=== PATIENT | female | born 1965 | race Caucasian/White ===

== ENCOUNTER 2019-10-25 14:34 | Emergency (ER) | payer BC, SELFPAY ==
[2019-10-25 14:57] VITALS: BP 140/80; PULSE 67; RESP 20; TEMP 36.8; O2SAT 98; BMI 34.4
--- NOTE | 2019-10-25 15:02 | XR_ITS ---
PROCEDURE: XR SHOULDER LT MIN 2V CLINICAL INDICATION: INJURY Pain COMPARISON: Shoulder L from 10/20/2018 FINDINGS: No fracture, dislocation, lytic change, or blastic change evident. No significant degenerative change there is minimal hypertrophic change of the AC joint not significantly changed. IMPRESSION: No acute finding. Minimal degenerative change of the AC joint Dictated by: Nabeel Lozano MD 10/25/2019 16:41 Electronically signed by Nabeel Lozano MD in [place] 10/25/2019 16:41
--- NOTE | 2019-10-25 15:50 | HMH.EDUTC ---
[facility] [place] Disposition Clinical Impression: Injury of shoulder, left Qualifiers: Encounter type: sequela Qualified Code(s): S49.92XS - Unspecified injury of left shoulder and upper arm, sequela Left shoulder pain Qualifiers: Chronicity: acute Qualified Code(s): M25.512 - Pain in left shoulder Disposition: Home, Self-Care Condition on Discharge: Good Instructions: Shoulder Tendinopathy, DI for Shoulder Pain Additional Instructions: Rest the extremity, Elevate the extremity as tolerated while you are resting. Follow up with Dr. Sloan (orthopedics). I put in a referral but you need to call her office and schedule an appointment. Follow up with your regular doctor. GO TO THE ER FOR ANY WORSENING SYMPTOMS Prescriptions: Methocarbamol [Robaxin 500mg Tab] 500 mg PO BIDP PRN #30 tab PRN Reason: Muscle Spasm Transmission Status: Received by [id number] Referrals: Princess Sampson [Primary Care Provider] - Tara Sloan MD [Physician] - Time of Disposition: 16:18 Medical Decision Making - Medical Records Medical records reviewed: No: I reviewed the patient's medical records. - Bartolo Inquiry Pt receiving controlled substance: No Vital Signs: 10/25/19 14:57 10/25/19 16:15 Temperature 98.3 F 98.3 F Temperature Source Oral Pulse Rate 67 Pulse Rate [Right Brachial] 67 Respiratory Rate 20 20 Blood Pressure 140/80 Blood Pressure [Right Arm] 140/80 Blood Pressure Mean [Right Arm] 100 Blood Pressure Source [Right Arm] Automatic Cuff Blood Pressure Position [Right Arm] Sitting 02 Sat by Pulse Oximetry 98 Oxygen Delivery Method Room Air Orders (Tests/Meds): ED MEDICATIONS Discontinued Medications Generic Name Dose Route Start Last Admin Trade Name Freq PRN Reason Stop Dose Admin Ketorolac Tromethamine 60 mg 10/25/19 15:53 10/25/19 16:00 Toradol 60mg/2ml Vial IM 10/25/19 15:54 60 mg ONCE ONE Administration Methylprednisolone Sodium Succinate 125 mg 10/25/19 15:53 10/25/19 16:00 Solu-Medrol 125mg/2ml Vial IM 10/25/19 15:54 125 mg ONCE ONE Administration [facility] [place] HPI - General Stated complaint: left shoulder rotator cup, no recent accident Time Seen by Provider: 10/25/19 15:00 Mode of Arrival: Ambulatory Source of Information: Patient Limitations: No Limitations Description of Symptoms (Recalled from Triage Doc. by RN): PATIENT STATES THAT SHE HAD A TORN ROTATOR CUFF REPAIR APPROX 4 YEARS AGO THAT SHE BELIEVES SHE REINJURED ON THURSDAY. C/O PAIN TO LEFT SHOULDER THAT RADIATES TO UPPER NECK AND BACK AND NUMBNESS/TINGLING IN HER FINGERS HEENT Symptoms (Recalled from RN notes): No Resp Symptoms (Recalled from RN notes): No Skin Symptoms (Recalled from RN notes): No MS Symptoms (Recalled from RN notes): Yes Functional Status (Recalled from RN notes): WNL - History of Present Illness Provider Complaint: She has a long history of left shoulder problems. She has a rotator cuff repair did 3 years ago. Since then, her shoulder did better up until a few months ago. She is having almost constant left shoulder pain that is worse with moving the arm. She denies any chest pain or shortness of breath. - Related Data Home Medications Medication Instructions Recorded Confirmed Buspirone HCl [Buspirone 15 mg 15 mg PO BID 10/25/19 10/25/19 Tablets] Escitalopram Oxalate [Lexapro] 20 mg PO DAILY 10/25/19 10/25/19 Trazodone HCl [Desyrel 50mg tablet] 50 mg PO HS 10/25/19 10/25/19 buPROPion HCL [Bupropion Xl] 300 mg PO DAILY 10/25/19 10/25/19 hydrOXYzine pamoate [Vistaril 25mg 25 mg PO DAILY 10/25/19 10/25/19 capsule] Previous Rx's Medication Instructions Recorded Methocarbamol [Robaxin 500mg Tab] 500 mg PO BIDP PRN #30 tab 10/25/19 Allergies Allergy/AdvReac Type Severity Reaction Status Date / Time codeine Allergy Verified 10/20/18 22:40 ibuprofen Allergy Verified 10/20/18 22:40 meloxicam [From Mobic] Allergy Verified 10/25/19 15:04
[2019-10-25 16:15] VITALS: BP 140/80; PULSE 67; RESP 20; TEMP 36.8; O2SAT 98
== END 2019-10-25 16:20 | disposition home or self-care (01) ==
PROVIDERS: Emergency Provider Nurse Practitioner Family; PCP Nurse Practitioner Family
DX: M25.512 Pain in left shoulder (principal); F17.210 Nicotine dependence, cigarettes, uncomplicated; Z88.0 Allergy status to penicillin; Z88.5 Allergy status to narcotic agent
CPT/HCPCS: 73030; 96372; 99202

== ENCOUNTER 2019-11-01 11:29 | Outpatient (RCR) | payer BC, SELFPAY | END 2019-11-01 12:00 | disposition home or self-care (01) | LOC: OT 11:29 | PROVIDERS: Visit Provider Orthopaedic Surgery | DX: G56.03 Carpal tunnel syndrome, bilateral upper limbs (principal) | CPT/HCPCS: 97763 ==

== ENCOUNTER → 2019-11-15 10:11 | Outpatient (CLI) | payer BC, SELFPAY ==
--- NOTE | 2019-11-15 10:11 | MR_ITS ---
PROCEDURE: MR SHOULDER LT WO CON CLINICAL INDICATION: left shoulder pain Rotator cuff surgery x5yrs. X3wks shoulder pain. No trauma. Pain when raising arm above head. Arm weakness. X-Ray 10-25-19 COMPARISON: XR SHOULDER LT MIN 2V from 10/25/2019 TECHNIQUE: Routine multiplanar multi echo sequences are performed without gadolinium enhancement. FINDINGS: There is extensive artifact prior shoulder surgery with multiple metallic fragments and susceptibility artifact. The supraspinatus tendon appears intact with only slight increase in T2 signal distally. The infraspinatus, subscapularis, and teres minor tendons also appear intact. The bicipital tendon is in place. No labral tear apparent. There is acromioclavicular arthropathy with mild subacromial stenosis. No shoulder joint effusion. No fracture or dislocation. IMPRESSION: No evidence of rotator cuff tear. There is mild subacromial stenosis with acromioclavicular arthropathy and minimal impingement upon the supraspinatus tendon with mild tendinopathy/tendinosis of the supraspinatus tendon Artifact from previous surgery Dictated by: Nabeel Lozano MD 11/16/2019 13:15 Electronically signed by Nabeel Lozano MD in [place] 11/16/2019 13:15
== END ==
PROVIDERS: PCP Nurse Practitioner Family; Visit Provider Orthopaedic Surgery
DX: M25.512 Pain in left shoulder (principal)
CPT/HCPCS: 73221

== ENCOUNTER → 2019-12-07 10:15 | Outpatient (CLI) | payer BC, SELFPAY ==
--- NOTE | 2019-12-07 10:36 | ECG_ITS ---
APPROVED REPORT Exam: Resting ECG HR:64 bpm ECG Measurements Heart Rate 64 AXES OR 146 P 74 QRSd 134 QRS 76 QT 448 T 70 QTc 462 <Conclusion> Normal sinus rhythm Right bundle branch block Abnormal ECG Electronically signed by : Gurdeep Pruett, 12/09/2019 12:32:12
--- NOTE | 2019-12-07 10:38 | XR_ITS ---
PROCEDURE: XR CHEST 2V CLINICAL HISTORY: H/O TOBACCO USE,SOB Preop for carpal tunnel surgery. COMPARISON: Chest from 10/20/2018 FINDINGS: No acute bony abnormalities. There is somewhat bony demineralization. The cardiomediastinal silhouette and pulmonary vascularity are within normal limits. The lungs are hyperinflated, compatible with COPD. There is no demonstrated consolidation, pulmonary vascular congestion or pleural effusion of the visualized lungs. IMPRESSION: 1. No acute findings. Possible COPD. Dictated by: Dinesh Acosta 12/07/2019 11:10 Electronically signed by Dinesh Acosta in [place] 12/07/2019 11:10
[2019-12-07 11:01] LABS: Basophils # 0.1 K/mm3 (0-0.2); Basophils % 1.1 % (0.1-2.0); Eosinophils # 0.2 K/mm3 (0.0-0.4); Eosinophils % 3.2 % (0.1-12.0); Hematocrit 38.9 % (37.0-47.0); Hemoglobin 12.2 g/dL (12.2-16.2); Lymphocytes % 33.1 % (10-50); Mean Corpuscular HGB Conc 31.4 g/dL (31.8-35.4); Mean Corpuscular Hemoglobin 26.7 pg (27.0-31.2); Mean Platelet Volume 7.1 fl (7.4-10.4); Monocytes # 0.4 K/mm3 (0.1-1.0); Monocytes % 6.3 % (1.7-9.3); Neutrophils # 3.3 K/mm3 (1.8-7.8); Neutrophils % 56.4 % (37.0-80.0); Platelet Count 395 K/mm3 (142-424); Red Blood Count 4.58 M/mm3 (4.20-5.40); White Blood Count 5.9 K/mm3 (4.8-10.8)
[2019-12-07 12:10] LABS: Chloride 104 mmol/L (98-107)
[2019-12-07 12:11] LABS: Potassium 5.9 mmoL/L (3.5-5.1); Sodium 142 mmol/L (136-145)
[2019-12-07 12:13] LABS: Alanine Aminotransferase 15 U/L (12-78); Alkaline Phosphatase 91 U/L (38-126); Anion Gap 14.9 mEq/L (5-15); Aspartate Amino Transferase 23 U/L (14-36); Bilirubin,Total 0.5 mg/dl (0.2-1.3); Blood Urea Nitrogen 17 mg/dl (7-17); Carbon Dioxide 29 mmol/L (22.0-30.0); Estimated Glomerular Filt Rate 74 ml/min (>60); GFR (African American) 90 ML/MIN (>60)
[2019-12-07 12:14] LABS: Albumin Level 4.2 g/dl (3.5-5.0); Albumin/Globulin Ratio 1.5 (1.1-1.8); Calcium 9.8 mg/dl (8.4-10.2); Globulin 2.8 g/dL (1.3-3.2); Glucose 86 mg/dl (74-100)
[2019-12-07 12:21] LABS: Coronavirus 19 IgG Antibody Negative (Negative)
[2019-12-07 12:22] LABS: Coronavirus 19 IgM Antibody Negative (Negative)
[2019-12-07 13:54] LABS: Hemoglobin A1C 5.4 % (4.0-6.0)
== END ==
PROVIDERS: Visit Provider Orthopaedic Surgery
DX: Z01.818 Encounter for other preprocedural examination (principal); G56.01 Carpal tunnel syndrome, right upper limb
CPT/HCPCS: 36415; 71046; 80053; 83036; 85025; 86328; 93005

== ENCOUNTER 2019-12-08 07:19 | Day surgery (SDC) | payer BC, SELFPAY ==
[2019-12-06 13:02] VITALS: BMI 33.6
--- NOTE | 2019-12-08 07:32 | XR_ITS ---
PROCEDURE: XR WRIST LT MIN 3V CLINICAL INDICATION: surgery Pain, carpal tunnel syndrome COMPARISON: No exams were available for comparison FINDINGS: No fracture or dislocation. No lytic or blastic change. There is normal mineralization. The joint spaces are well-preserved. No significant degenerative/arthritic changes. No erosive changes evident. Other findings:None. IMPRESSION: No acute findings. Dictated by: Nabeel Lozano MD 12/08/2019 07:57 Electronically signed by Nabeel Lozano MD in [place] 12/08/2019 07:57
--- NOTE | 2019-12-08 07:32 | XR_ITS ---
PROCEDURE: XR WRIST RT MIN 3V CLINICAL INDICATION: surgery Pain, wrist pain COMPARISON: No exams were available for comparison FINDINGS: No fracture or dislocation. No lytic or blastic change. There is normal mineralization. The joint spaces are well-preserved. No significant degenerative/arthritic changes. No erosive changes evident. Other findings:There is some minimal cortical lucency along the proximal aspect of the lunate nonspecific and could even be due to artifact. IMPRESSION: Questionable cortical lucencies at the proximal lunate service possibly due to subarticular cystic change otherwise negative Dictated by: Nabeel Lozano MD 12/08/2019 07:56 Electronically signed by Nabeel Lozano MD in [place] 12/08/2019 07:56
[2019-12-08 07:52] VITALS: BP 140/74; PULSE 75; RESP 20; TEMP 36.4; O2SAT 97
[2019-12-08 08:58] LABS: Chloride 105 mmol/L (98-107); Potassium 4.1 mmoL/L (3.5-5.1); Sodium 140 mmol/L (136-145)
[2019-12-08 09:00] LABS: Alanine Aminotransferase 13 U/L (12-78); Aspartate Amino Transferase 24 U/L (14-36); Blood Urea Nitrogen 21 mg/dl (7-17); Creatinine Clearance Estimated 140 mL/min (50-200); Estimated Glomerular Filt Rate 87 ml/min (>60); GFR (African American) 105 ML/MIN (>60)
[2019-12-08 09:01] LABS: Albumin/Globulin Ratio 1.4 (1.1-1.8); Alkaline Phosphatase 95 U/L (38-126); Anion Gap 12.1 mEq/L (5-15); Bilirubin,Total 0.6 mg/dl (0.2-1.3); Calcium 9.3 mg/dl (8.4-10.2); Carbon Dioxide 27 mmol/L (22.0-30.0); Globulin 2.9 g/dL (1.3-3.2); Glucose 89 mg/dl (74-100); Total Protein,Serum 6.9 g/dl (6.3-8.2)
[2019-12-08 10:20] VITALS: BP 154/75; PULSE 84; RESP 18; TEMP 36.5; O2SAT 98
[2019-12-08 10:35] VITALS: BP 147/78; PULSE 83; RESP 18; O2SAT 99
[2019-12-08 10:50] VITALS: BP 160/73; PULSE 61; RESP 18; O2SAT 98
--- NOTE | 2019-12-08 13:18 | HMH.ANESCL ---
[facility] [place] Anesthesia Checklist - Patient Identification Patient Identification: Arm Band, Verbal (Name & ) - Structural Data Admitted From: Home Planned Operative Procedure/s: Right CTR Consent for Planned Operative Procedure(s) Verified: Yes Verified Documents: Surgical Consent, History and Physical - NPO Status Verified Time NPO: 00:00 - Additional verifications Anesthesia Reactions: No Hx Blood Transfusions: No Blood Transfusion Reaction: No - Airway Assessment C-Spine Mobility Assessed: Yes TMJ Mobility Assessed: Yes Dentition: Good Dentition - Neurological Assessment Level of Consciousness: Awake, Alert, Appropriate, Follows Commands Hx Seizures: No Numbness or tingling in extremities: No - Anesthesia Plan Anesthesia Risk discussed: Yes Anesthesia Plan: Verified ASA Class: II Anesthesia Type: MAC w/Block [facility] [place] History Medical History: Reports:: Anxiety, Depression Denies:: Cancer, Diabetes Mellitus Type 1, Diabetes Mellitus Type 2, MRSA, Seizures *Have you ever received a pneumonia vaccine?: Yes *Have you received a flu vaccine this season?: Yes Other Medical History: Denies: Blood Transfusion Reaction Comment:: obesity Anesthesia experience/problems:: none Laterality Cases: Left: Arthroscopy Shoulder Other Surgeries: Yes: Bariatric Surgery Amputation: No Fractures: No - *Social History Last grade of school completed: Advanced degree Smoking Status: Current every day smoker Tobacco Type: cigarettes # Packs/Day (cigarettes): 1 Alcohol Intake: current Alcohol Intake Frequency:: holidays/special occasions only Substance Use Type: denies use *Occupational Status:: employed Housing: house *Travel in the last 8 weeks: None - Psychiatric History Pschychiatric History:: Reports:: Anxiety, Depression Family Hx:: Cancer, Diabetes
--- NOTE | 2019-12-08 18:13 | HMH.OPNOTE ---
Date of procedure: 12/08/19 Pre-op Diagnosis:: Carpal tunnel syndrome, right Post-op Diagnosis:: Same Procedure performed:: Open carpal tunnel release, right wrist Surgeon:: Chente Cuba MD SPRING CLIPPER:: Mateo Mckeon Anesthesia: regional (Supraclavicular nerve block), local Estimated blood loss (mL): 2 Clinical Note:: Patient is 54-year-old female with bilateral carpal tunnel syndrome with long-standing symptoms. EMG/NCV studies confirmed carpal tunnel syndrome on both sides with the right side being worse than the left. Patient is having significant and disabling symptoms on the right side and has failed to respond adequately to conservative management. Therefore the carpal tunnel release surgery is necessary to relieve symptoms, preserve the remaining fibers of the median nerve, improve function and decrease the pain, paresthesias and weakness and to prevent permanent nerve damage. Please refer to my office note for full details. Operative findings:: The intraoperative findings showed the median nerve to be very tightly compressed and hyperemic. The flexor retinaculum was noted to be thick and tight. There was mild synovitis in the carpal tunnel. There was no evidence of any space-occupying lesions within the carpal tunnel. Operative note:: On the day of the surgery the patient was met in the preoperative area. Patient was positively identified and the operative site was marked and initialed by me. A physical examination was performed and the chart was updated. I again discussed the procedure, risks and benefits and alternatives with the patient. The complications discussed include but are not limited to- bleeding, injury to nerves, blood vessels and tendons, infection, wound dehiscence, incomplete relief/continued pain, persistent numbness, palmar hypersensitivity, pillar pain, DVT/PE, complex regional pain syndrome(CRPS), worsening of nerve damage, failure of the condition to improve, incomplete return of function, bowstringing of tendons, weakness of polymerization kettle operator strength, recurrence, failure of the surgery to accomplish the desired goals, decreased use of the hand, loss of use of the arm, loss of the hand or arm, loss of life. Likely need for further surgery in the future has been discussed. I've indicated to the patient where the proposed incision would be made and also discussed the possibility of extending the incision if needed to accomplish an effective release. We have discussed how the goal of surgery is to protect the fibers which have remained healthy and hopefully reverse the symptoms of the fibers which are compromised but still recoverable. We have explained that, fibers that are permanently damaged will not recover. Patient asked appropriate questions and all have been answered by me. Patient wished to proceed with the surgery. Patient understood the risks, agreed to proceed with surgery, and no guarantees or assurances were given or implied. The patient was brought to the operating room and placed supine on the operating table. The right upper extremity was placed over a side table. All the bony prominences were well-padded. A supraclavicular nerve block was administered by the chief deputy sheriff. The right upper extremity was prepped and draped in the usual sterile fashion. A preprocedure timeout was performed as per hospital policy. The skin incision was marked using the Amaral's landmarks, just ulnar to the thenar crease. The limb was exsanguinated with the Esmarch bandage and tourniquet was inflated to 250 mmHg. Please see nursing records for the total tourniquet time. Amaral's landmarks were utilized and a skin incision was made parallel and just ulnar to the thenar crease with a 15 blade. At this point, we have noticed that the nerve blocks are not working as well as expected. Therefore therefore I have injected 10 cc of 0.5% Marcaine and 5 cc of 1% lidocaine into the surrounding tissue for local anesthesia. Blunt tissue dissection was carried
== END 2019-12-08 10:50 | disposition home or self-care (01) ==
LOC: OR 07:25
PROVIDERS: Nurse Anesthetist, Certified Registered; PCP Nurse Practitioner Family; Visit Provider Orthopaedic Surgery
PROC: (CPT 64721; principal; 2019-12-08 08:45)
DX: G56.01 Carpal tunnel syndrome, right upper limb (principal)
CPT/HCPCS: 64721; 73110; 80053; 96374; J0670; J2704

== ENCOUNTER → 2020-02-03 08:43 | Outpatient (CLI) | payer BC, SELFPAY ==
--- NOTE | 2020-02-03 08:49 | XR_ITS ---
PROCEDURE: XR HAND RT MIN 3V CLINICAL INDICATION: rt hand pain COMPARISON: No exams were available for comparison FINDINGS: No fracture or dislocation. No lytic or blastic change. There is normal mineralization. The joint spaces are well-preserved. No significant degenerative/arthritic changes. No erosive changes evident. Other findings:None. IMPRESSION: No acute findings. Dictated by: Nabeel Lozano MD 02/03/2020 16:28 Nabeel Lozano MD in [place] 02/03/2020 16:28
== END ==
PROVIDERS: PCP Nurse Practitioner Family; Visit Provider Orthopaedic Surgery
DX: M79.641 Pain in right hand (principal)
CPT/HCPCS: 73130

== ENCOUNTER → 2020-02-08 10:53 | Outpatient (CLI) | payer BC, SELFPAY ==
[2020-02-08 10:56] LABS: MANUAL DIFFERENTIAL MANUAL DIFFERENTIAL (MANUAL DIFF)
[2020-02-08 11:57] LABS: Basophils # 0.1 K/mm3 (0-0.2); Eosinophils # 0.2 K/mm3 (0.0-0.4); Eosinophils % 2.9 % (0.1-12.0); Hematocrit 38.3 % (37.0-47.0); Hemoglobin 11.7 g/dL (12.2-16.2); Lymphocytes # 2.2 K/mm3 (0.7-4.5); Lymphocytes % 41.1 % (10-50); Mean Corpuscular HGB Conc 30.6 g/dL (31.8-35.4); Mean Corpuscular Hemoglobin 26.3 pg (27.0-31.2); Mean Corpuscular Volume 85.9 fl (81-99); Monocytes # 0.3 K/mm3 (0.1-1.0); Monocytes % 5.6 % (1.7-9.3); Neutrophils # 2.7 K/mm3 (1.8-7.8); Neutrophils % 49.4 % (37.0-80.0); Platelet Count 363 K/mm3 (142-424); Red Blood Count 4.46 M/mm3 (4.20-5.40); Red Cell Distribution Width 16.7 % (11.5-17.5); White Blood Count 5.4 K/mm3 (4.8-10.8)
[2020-02-08 12:31] LABS: Chloride 106 mmol/L (98-107); Sodium 140 mmol/L (136-145)
[2020-02-08 12:32] LABS: Potassium 5.7 mmoL/L (3.5-5.1)
[2020-02-08 12:34] LABS: Alanine Aminotransferase 11 U/L (12-78); Albumin Level 4.2 g/dl (3.5-5.0); Albumin/Globulin Ratio 1.6 (1.1-1.8); Alkaline Phosphatase 98 U/L (38-126); Anion Gap 10.7 mEq/L (5-15); Aspartate Amino Transferase 25 U/L (14-36); Bilirubin,Total 0.7 mg/dl (0.2-1.3); Blood Urea Nitrogen 14 mg/dl (7-17); Carbon Dioxide 29 mmol/L (22.0-30.0); Estimated Glomerular Filt Rate 74 ml/min (>60); GFR (African American) 90 ML/MIN (>60); Globulin 2.7 g/dL (1.3-3.2); Total Protein,Serum 6.9 g/dl (6.3-8.2)
[2020-02-08 12:35] LABS: Calcium 9.8 mg/dl (8.4-10.2); Glucose 96 mg/dl (74-100)
[2020-02-08 13:23] LABS: Coronavirus 19 IgG Antibody Negative (Negative); Coronavirus 19 IgM Antibody Negative (Negative)
[2020-02-08 15:11] LABS: Eosinophils % 3 % (0-3); Hypochromasia 1+; Lymphocytes % 47 % (10-50); Monocytes % 4 % (2-9); Neutrophils % 46 % (42-76); Total Cells Counted 100
[2020-02-08 15:12] LABS: Platelet Estimate Normal; RBC Morphology Normal
== END ==
PROVIDERS: Visit Provider Orthopaedic Surgery
DX: Z01.89 Encounter for other specified special examinations (principal); G56.02 Carpal tunnel syndrome, left upper limb
CPT/HCPCS: 36415; 80053; 85007; 85014; 85018; 85048; 85049; 86328

== ENCOUNTER 2020-02-09 08:31 | Day surgery (SDC) | payer BC, SELFPAY ==
[2020-02-07 12:31] VITALS: BMI 33.3
[2020-02-09 08:47] VITALS: BP 118/66; PULSE 61; RESP 17; TEMP 36.3; O2SAT 100
[2020-02-09 09:07] LABS: Chloride 107 mmol/L (98-107); Potassium 4.4 mmoL/L (3.5-5.1); Sodium 141 mmol/L (136-145)
[2020-02-09 09:10] LABS: Alanine Aminotransferase 12 U/L (12-78); Albumin Level 4.1 g/dl (3.5-5.0); Albumin/Globulin Ratio 1.4 (1.1-1.8); Alkaline Phosphatase 93 U/L (38-126); Anion Gap 10.4 mEq/L (5-15); Aspartate Amino Transferase 24 U/L (14-36); Bilirubin,Total 0.7 mg/dl (0.2-1.3); Blood Urea Nitrogen 16 mg/dl (7-17); Calcium 9.7 mg/dl (8.4-10.2); Carbon Dioxide 28 mmol/L (22.0-30.0); Creatinine Clearance Estimated 139 mL/min (50-200); Estimated Glomerular Filt Rate 87 ml/min (>60); GFR (African American) 105 ML/MIN (>60); Glucose 90 mg/dl (74-100); Total Protein,Serum 7.1 g/dl (6.3-8.2)
[2020-02-09 11:43] VITALS: BP 164/82; PULSE 83; RESP 16; TEMP 36.4; O2SAT 94
[2020-02-09 11:58] VITALS: BP 152/88; PULSE 69; RESP 18; O2SAT 96
[2020-02-09 12:13] VITALS: BP 142/88; PULSE 69; RESP 18; O2SAT 96
[2020-02-09 12:28] VITALS: BP 133/80; PULSE 68; RESP 18; O2SAT 97
[2020-02-09 12:55] VITALS: BP 139/76; PULSE 68; RESP 18; O2SAT 97
--- NOTE | 2020-02-09 14:11 | HMH.OPNOTE ---
Date of procedure: 02/09/20 Pre-op Diagnosis:: Carpal tunnel syndrome, left Post-op Diagnosis:: Same Procedure performed:: Open carpal tunnel release, left Surgeon:: Chente Cuba MD BUSINESS SERVICES SALES REPRESENTATIVE:: Mateo Mckeon Anesthesia: regional (Supraclavicular nerve block) Estimated blood loss (mL): 2 Clinical Note:: Patient is 54-year-old female with left carpal tunnel syndrome with long-standing symptoms. Her EMG/NCV studies confirmed carpal tunnel syndrome on both sides and she previously underwent successful carpal tunnel release on the right side. Patient is having significant and disabling symptoms on the left side and has failed to respond adequately to conservative management. Therefore the carpal tunnel release surgery is necessary to relieve symptoms, preserve the remaining fibers of the median nerve, improve function and decrease the pain, paresthesias and weakness and to prevent permanent nerve damage. Please refer to my office note for full details. Operative findings:: The intraoperative findings showed the median nerve to be very tightly compressed and hyperemic. The flexor retinaculum was noted to be thick and tight. There was mild synovitis in the carpal tunnel. There was no evidence of any space-occupying lesions within the carpal tunnel. Operative note:: On the day of the surgery the patient was met in the preoperative area. Patient was positively identified and the operative site was marked and initialed by me. A physical examination was performed and the chart was updated. I again discussed the procedure, risks and benefits and alternatives with the patient. The complications discussed include but are not limited to- bleeding, injury to nerves, blood vessels and tendons, infection, wound dehiscence, incomplete relief/continued pain, persistent numbness, palmar hypersensitivity, pillar pain, DVT/PE, complex regional pain syndrome(CRPS), worsening of nerve damage, failure of the condition to improve, incomplete return of function, bowstringing of tendons, weakness of information services tech strength, recurrence, failure of the surgery to accomplish the desired goals, decreased use of the hand, loss of use of the arm, loss of the hand or arm, loss of life. Likely need for further surgery in the future has been discussed. I've indicated to the patient where the proposed incision would be made and also discussed the possibility of extending the incision if needed to accomplish an effective release. We have discussed how the goal of surgery is to protect the fibers which have remained healthy and hopefully reverse the symptoms of the fibers which are compromised but still recoverable. We have explained that, fibers that are permanently damaged will not recover. Patient asked appropriate questions and all have been answered by me. Patient wished to proceed with the surgery. Patient understood the risks, agreed to proceed with surgery, and no guarantees or assurances were given or implied. The patient was brought to the operating room and placed supine on the operating table. The left upper extremity was placed over a side table. All the bony prominences were well-padded. The patient had supraclavicular nerve block administered by the datapower consultant. The left upper extremity was prepped and draped in the usual sterile fashion. A preprocedure timeout was performed as per hospital policy. The skin incision was marked using the Amaral's landmarks, just ulnar to the thenar crease. The limb was exsanguinated with the Esmarch bandage and tourniquet was inflated to 250 mmHg. Please see nursing records for the total tourniquet time. Amaral's landmarks were utilized and a skin incision was made parallel and just ulnar to the thenar crease with a 15 blade. Blunt tissue dissection was carried through the subcutaneous tissue down to the palmar fascia. The palmar fascia was incised with the knife to reveal the transverse carpal ligament. The transverse carpal ligament was adequately exposed and
== END 2020-02-09 12:55 | disposition home or self-care (01) ==
LOC: OR 08:33
PROVIDERS: Nurse Anesthetist, Certified Registered; PCP Nurse Practitioner Family; Visit Provider Orthopaedic Surgery
PROC: (CPT 64721; principal; 2020-02-09 10:00)
DX: G56.02 Carpal tunnel syndrome, left upper limb (principal)
CPT/HCPCS: 64721; 80053; 96374; J0670

== ENCOUNTER 2020-03-13 09:13 | Emergency (ER) | payer BC, SELFPAY ==
[2020-03-13 09:25] VITALS: BP 138/75; PULSE 65; RESP 20; TEMP 36.7; O2SAT 99; BMI 33.0
[2020-03-13 09:28] VITALS: BMI 33.0
--- NOTE | 2020-03-13 09:28 | XR_ITS ---
PROCEDURE: XR WRIST LT MIN 3V CLINICAL INDICATION: FALL Pain COMPARISON: CR XR WRIST RT MIN 3V from 12/08/2019 CR XR WRIST LT MIN 3V from 12/08/2019 FINDINGS: No fracture or dislocation. No lytic or blastic change. There is normal mineralization. The joint spaces are well-preserved. No significant degenerative/arthritic changes. No erosive changes evident. Other findings:None. IMPRESSION: No acute findings. Dictated by: Nabeel Lozano MD 03/13/2020 10:12 Nabeel Lozano MD in [place] 03/13/2020 10:12
--- NOTE | 2020-03-13 09:28 | XR_ITS ---
PROCEDURE: XR HAND LT MIN 3V CLINICAL INDICATION: FALL Fall with injury and pain COMPARISON: CR XR HAND RT MIN 3V from 02/03/2020 FINDINGS: No fracture or dislocation. No lytic or blastic change. There is normal mineralization. The joint spaces are well-preserved. No significant degenerative/arthritic changes. No erosive changes evident. Other findings:None. IMPRESSION: No acute findings. Dictated by: Nabeel Lozano MD 03/13/2020 10:12 Nabeel Lozano MD in [place] 03/13/2020 10:12
--- NOTE | 2020-03-13 09:28 | XR_ITS ---
PROCEDURE: XR KNEE LT 3V CLINICAL INDICATION: FALL Posttraumatic pain COMPARISON: No exams were available for comparison FINDINGS: No fracture or dislocation. No lytic or blastic change. There is normal mineralization. The joint spaces are well-preserved. No significant degenerative/arthritic changes. No erosive changes evident. Other findings:None. IMPRESSION: No acute findings. Dictated by: Nabeel Lozano MD 03/13/2020 10:14 Nabeel Lozano MD in [place] 03/13/2020 10:14
--- NOTE | 2020-03-13 09:37 | HMH.EDUTC ---
[facility] [place] Disposition Clinical Impression: Bilateral wrist pain Fall Qualifiers: Encounter type: initial encounter Qualified Code(s): W19.XXXA - Unspecified fall, initial encounter Left knee pain Qualifiers: Chronicity: acute Qualified Code(s): M25.562 - Pain in left knee Disposition: Home, Self-Care Condition on Discharge: Good Instructions: DI for Knee Pain, DI for Wrist Pain Additional Instructions: Rest the extremity, Elevate the extremity as tolerated while you are resting. Follow up with Dr. Cuba. I put in a referral but you need to call his office and schedule an appointment. Follow up with your regular doctor. GO TO THE ER FOR ANY WORSENING SYMPTOMS Referrals: Princess Sampson [Primary Care Provider] - Chente Cuba MD [Staff Physician] - Time of Disposition: 10:44 Medical Decision Making - Medical Records Medical records reviewed: No: I reviewed the patient's medical records. - Bartolo Inquiry Pt receiving controlled substance: No Vital Signs: 03/13/20 09:25 03/13/20 10:50 Temperature 98.1 F 98.1 F Temperature Source Oral Pulse Rate 65 Pulse Rate [Right Brachial] 65 Respiratory Rate 20 20 Blood Pressure 138/75 Blood Pressure [Left Arm] 138/75 Blood Pressure Mean [Left Arm] 96 Blood Pressure Source [Left Arm] Automatic Cuff Blood Pressure Position [Left Arm] Sitting 02 Sat by Pulse Oximetry 99 Oxygen Delivery Method Room Air [facility] [place] HPI - General Stated complaint: AO [id number] left knee injury at home Time Seen by Provider: 03/13/20 09:37 - History of Present Illness Provider Complaint: She states that she fell on (1 week ago) and came down on her knees. She then pushed herself back up with her wrist and ended up having wrist pain also. She had bilateral carpal tunnel surgery about 1 months ago. She states that since the fall, her left knee and bilateral wrist have continued to hurt. - Related Data Home Medications Medication Instructions Recorded Confirmed Buspirone HCl [Buspirone 15 mg 15 mg PO BID 10/25/19 02/22/20 Tablets] Escitalopram Oxalate [Lexapro] 20 mg PO DAILY 10/25/19 02/22/20 Trazodone HCl [Desyrel 50mg tablet] 50 mg PO HS 10/25/19 02/22/20 buPROPion HCL [Bupropion Xl] 300 mg PO DAILY 10/25/19 02/22/20 hydrOXYzine pamoate [Vistaril 25mg 25 mg PO DAILY 10/25/19 02/22/20 capsule] Magnesium Oxide [Magnesium] 250 mg PO DAILY 12/06/19 02/22/20 Allergies Allergy/AdvReac Type Severity Reaction Status Date / Time penicillin G Allergy Severe Anaphylaxis Verified 02/22/20 15:43 nitrofurantoin Allergy Unknown Unknown Verified 02/22/20 15:43 [From Macrobid] allergy reaction codeine Allergy Verified 02/22/20 15:43 ibuprofen Allergy Verified 02/22/20 15:43 meloxicam [From Mobic] Allergy Verified 02/22/20 15:43 [facility] History - Hepatitis A Screen Attestation statement:: This patient has been screened for Hepatitis A risk factors. I have reviewed the patient's past medical history: Yes Medical History: Reports:: Anxiety, Depression Denies:: Cancer, Diabetes Mellitus Type 1, Diabetes Mellitus Type 2, Internal Pacemaker, MRSA, Seizures Other Medical History: Denies: Blood Transfusion Reaction Comment: obesity Laterality Cases: Left: Arthroscopy Shoulder, Bilateral: Carpal Tunnel Release Other Surgeries: Yes: Bariatric Surgery. No: Pacemaker Amputation: No Fractures: No - Social History Smoking Status: Current every day smoker Tobacco Type: cigarettes # Packs/Day (cigarettes): 1 Alcohol Intake: never Alcohol Intake Frequency:: holidays/special occasions only Substance Use Type: denies use Occupational Status: employed Housing: house - Psychiatric History Pschychiatric History:: Reports:: Anxiety, Depression Family Hx:: Cancer, Diabetes ROS Obtained: Yes All systems reviewed & no additional complaints - Constitutional Constitutional: Reports system reviewed and no additional complaints, except as docu
[2020-03-13 10:50] VITALS: BP 138/75; PULSE 65; RESP 20; TEMP 36.7; O2SAT 99
== END 2020-03-13 10:55 | disposition home or self-care (01) ==
LOC: UTC 09:17
PROVIDERS: Emergency Provider Nurse Practitioner Family; PCP Nurse Practitioner Family
DX: M25.562 Pain in left knee (principal); M25.532 Pain in left wrist; M25.531 Pain in right wrist; W19.XXXA Unspecified fall, initial encounter; Z87.39 Personal history of other diseases of the musculoskeletal system and connective tissue; Z88.0 Allergy status to penicillin; Z88.6 Allergy status to analgesic agent; Z79.899 Other long term (current) drug therapy; Z72.0 Tobacco use; F41.9 Anxiety disorder, unspecified; F32.9 Major depressive disorder, single episode, unspecified
CPT/HCPCS: 29505; 73110; 73130; 73562; 99202

== ENCOUNTER → 2020-04-25 17:08 | Outpatient (CLI) | payer BC, SELFPAY ==
--- NOTE | 2020-04-25 17:08 | MR_ITS ---
PROCEDURE: MR KNEE LT WO CON CLINICAL INDICATION: LEFT KNEE PAIN; meniscal tear FELL IN OCT AND KNEE PAIN. QUESTION MENISCAL TEAR. PRIOR X-RAY 03-13-20 COMPARISON: CR XR KNEE LT 3V from 03/13/2020 TECHNIQUE: Routine multiplanar multi echo sequences are performed without gadolinium enhancement. FINDINGS: The cruciate ligaments, collateral ligaments, patellar tendon, and quadriceps tendon have an unremarkable appearance. There is a small linear area of increased T2 signal involving the lateral free edge the body and posterior horn of the medial meniscus suggesting a nondisplaced horizontal tear. There is some motion artifact at this area which could also contribute to this finding. There is some thinning of the patellar cartilage consistent with chondromalacia patella with a small amount of fluid in the patellofemoral region. There is some slight increased T2 signal involving the patella superiorly no bone bruise or fracture evident. IMPRESSION: 1. Suspected nondisplaced horizontal tear involves the mid and posterior horn of the lateral meniscus 2. 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
== END ==
PROVIDERS: PCP Nurse Practitioner Family; Visit Provider Orthopaedic Surgery
DX: M25.562 Pain in left knee (principal)
CPT/HCPCS: 73721

== ENCOUNTER 2020-04-29 18:55 | Emergency (ER) | payer BC, SELFPAY ==
[2020-04-29 18:56] VITALS: BP 154/92; PULSE 77; RESP 16; TEMP 36.7; O2SAT 97; BMI 31.0
--- NOTE | 2020-04-29 19:28 | CT_ITS ---
PROCEDURE: CT ABDOMEN PELVIS WO CON CLINICAL INDICATION: flank pain Left-sided flank pain COMPARISON: No exams were available for comparison TECHNIQUE: Axial images obtained with sagittal and coronal reformats. All CT scans at the facility use one or more dose reduction, viz: automated exposure control, ma/kV adjustment per patient size (including targeted exams where dose is matched to indication, i.e. head), or iterative reconstruction technique. FINDINGS: LOWER THORAX: Small hiatal hernia. ABDOMEN & PELVIS: Prior gastric sleeve surgery. Prior cholecystectomy. The liver, spleen, adrenal glands, pancreas, and kidneys have an unremarkable unenhanced appearance. Mild amount of retained colonic feces. No evidence of appendicitis or diverticulitis. No intestinal obstruction or free air. The there is mild calcification in the left adnexal region which may be rib related to calcification of the ovary. No pelvic mass or abnormal fluid collection is apparent. There is partially calcified nodule within the subcutaneous fat of the right lower abdomen measuring 2.6 x 1.7 cm. No acute bony anomalies. IMPRESSION: 1. No acute finding. 2. Mild amount of retained colonic feces and other nonacute findings as described above. Dictated by: Nabeel Lozano MD 04/30/2020 07:40 Nabeel Lozano MD in [place] 04/30/2020 07:40
--- NOTE | 2020-04-29 19:39 | PC.NURSE ---
pt to RAD
[2020-04-29 19:47] LABS: Microscopic, Urine URINE MICROSCOPIC (MICROSCOPIC)
[2020-04-29 19:52] LABS: Appearance,Urine CLEAR (Clear); Bilirubin,Urine Negative (Negative); Blood, Urine TRACE-I (Negative); Color,Urine YELLOW (Yellow); Glucose,Urine (UA) Negative (Negative); Ketones,Urine Negative (Negative); Leukocyte Esterase,Urine Negative (Negative); Nitrate,Urine Negative (Negative); Protein,Urine Negative (Negative); Specific Gravity, Urine >= 1.030 (1.005-1.030); Urobilinogen,Urine 0.2 EU/dl (0.2)
--- NOTE | 2020-04-29 19:53 | PC.NURSE ---
pt back from RAD
[2020-04-29 19:54] LABS: Chloride 108 mmol/L (98-107); Potassium 3.9 mmoL/L (3.5-5.1); Sodium 139 mmol/L (136-145)
--- NOTE | 2020-04-29 19:54 | PC.NURSE ---
called lab for lab results on pt. lab stated they just started running.
[2020-04-29 19:55] LABS: Calcium Oxalate Crystals,Urine 2+ /lpf; RBC,Urine Occasional #/hpf (0-3)
[2020-04-29 19:56] LABS: Basophils # 0.1 K/mm3 (0-0.2); Blood Urea Nitrogen 13 mg/dl (7-17); Eosinophils # 0.2 K/mm3 (0.0-0.4); Eosinophils % 3.3 % (0.1-12.0); Hematocrit 37.8 % (37.0-47.0); Hemoglobin 11.9 g/dL (12.2-16.2); Lymphocytes # 3.4 K/mm3 (0.7-4.5); Lymphocytes % 49.2 % (10-50); Mean Corpuscular HGB Conc 31.6 g/dL (31.8-35.4); Mean Corpuscular Hemoglobin 25.8 pg (27.0-31.2); Mean Corpuscular Volume 81.7 fl (81-99); Mean Platelet Volume 7.1 fl (7.4-10.4); Monocytes # 0.5 K/mm3 (0.1-1.0); Monocytes % 6.9 % (1.7-9.3); Neutrophils # 2.7 K/mm3 (1.8-7.8); Neutrophils % 39.5 % (37.0-80.0); Platelet Count 388 K/mm3 (142-424); Red Blood Count 4.62 M/mm3 (4.20-5.40); Red Cell Distribution Width 17.4 % (11.5-17.5); White Blood Count 6.8 K/mm3 (4.8-10.8)
[2020-04-29 19:57] LABS: Alanine Aminotransferase 13 U/L (12-78); Albumin Level 4.4 g/dl (3.5-5.0); Albumin/Globulin Ratio 1.3 (1.1-1.8); Alkaline Phosphatase 99 U/L (38-126); Anion Gap 10.9 mEq/L (5-15); Aspartate Amino Transferase 27 U/L (14-36); Bilirubin,Total 0.4 mg/dl (0.2-1.3); Calcium 9.5 mg/dl (8.4-10.2); Carbon Dioxide 24 mmol/L (22.0-30.0); Creatinine Clearance Estimated 159 mL/min (50-200); Estimated Glomerular Filt Rate 104 ml/min (>60); GFR (African American) 126 ML/MIN (>60); Globulin 3.4 g/dL (1.3-3.2); Glucose 85 mg/dl (74-100); Total Protein,Serum 7.8 g/dl (6.3-8.2)
[2020-04-29 20:02] LABS: C-Reactive Protein 1.3 mg/L (0-4)
[2020-04-29 20:26] LABS: Erythrocyte Sedimentation Rate 43 mm/hr (0-30)
--- NOTE | 2020-04-29 20:48 | HMH.EDGENADL ---
ED Disposition Clinical Impression: Lumbar back pain Disposition: Home, Self-Care Condition on Discharge: Good Instructions: DI for Acute Pain -- Adult Additional Instructions: monitor for rash and call pcp in am Referrals: Princess Sampson [Primary Care Provider] - - Critical Care Critical Care Time: No Attestation: On 04/29/20, the high probability of a clinically significant, sudden or life threatening deterioration of the following system(s) required my full and direct attention, intervention and personal management. The time I documented below is in addition to time spent performing reported procedures but includes the following listed in this critical care notation. Medical Decision Making - Medical Records Medical records reviewed: Yes: I reviewed the patient's medical records. - Bartolo Inquiry Pt receiving controlled substance: No Vital Signs: 04/29/20 18:56 Temperature 98.1 F Temperature Source Oral Pulse Rate [Left Radial] 77 Respiratory Rate 16 Blood Pressure [Right Arm] 154/92 H Blood Pressure Mean [Right Arm] 112 Blood Pressure Source [Right Arm] Automatic Cuff Blood Pressure Position [Right Arm] Sitting 02 Sat by Pulse Oximetry 97 Oxygen Delivery Method Room Air - Lab Data Lab results reviewed: Yes: I reviewed the patient's lab results. Lab Results 04/29/20 19:13: Urine Color Yellow, Urine Appearance Clear, Urine pH 6.0, Ur Specific [place] >= 1.030, Urine Protein Negative, Urine Glucose (UA) Negative, Urine Ketones Negative, Urine Blood Trace-i, Urine Nitrate Negative, Urine Bilirubin Negative, Urine Urobilinogen 0.2, Ur Leukocyte Esterase Negative, Urine RBC Occasional, Calcium Oxalate Crystal 2+ 04/29/20 19:25: WBC 6.8, RBC 4.62, Hgb 11.9 L, Hct 37.8, MCV 81.7, MCH 25.8 L, MCHC 31.6 L, RDW 17.4, Plt Count 388, MPV 7.1 L, Neut % (Auto) 39.5, Lymph % (Auto) 49.2, [place] % (Auto) 6.9, Eos % (Auto) 3.3, Baso % (Auto) 1.0, Neut # (Auto) 2.7, Lymph # (Auto) 3.4, [place] # (Auto) 0.5, Eos # (Auto) 0.2, Baso # (Auto) 0.1, ESR 43 H 04/29/20 19:25: Sodium 139, Potassium 3.9, Chloride 108 H, Carbon Dioxide 24, Anion Gap 10.9, BUN 13, Creatinine 0.60, Estimated Creat Clear 159, Estimated GFR 104, Est GFR ( Amer) 126, Glucose 85, Calcium 9.5, Total Bilirubin 0.4, AST 27, ALT 13, Alkaline Phosphatase 99, C-Reactive Protein 1.3, Total Protein 7.8, Albumin 4.4, Globulin 3.4 H, Albumin/Globulin Ratio 1.3 Result diagrams: 04/29/20 19:25 04/29/20 19:25 Orders (Tests/Meds): ED MEDICATIONS Generic Name Dose Route Start Last Admin Trade Name Freq PRN Reason Stop Dose Admin Sodium Chloride 1,000 mls @ 999 mls/hr 04/29/20 20:00 04/29/20 19:59 Sod Chlor 0.9% 1000ml Bag IV 04/29/20 21:00 999 mls/hr .Q1H1M ERIK Administration Discontinued Medications Generic Name Dose Route Start Last Admin Trade Name Freq PRN Reason Stop Dose Admin Ketorolac Tromethamine 30 mg 04/29/20 19:57 04/29/20 19:59 Ketorolac 30mg/Ml Vial IV 04/29/20 19:58 30 mg ONCE ONE Administration Methylprednisolone Sodium Succinate 125 mg 04/29/20 20:22 04/29/20 20:23 Methylprednisolone Sod Succ 125mg Vial IV 04/29/20 20:23 125 mg ONCE ONE Administration Morphine Sulfate 4 mg 04/29/20 20:11 04/29/20 20:12 Morphine 4mg/Ml Syringe IV 04/29/20 20:12 4 mg ONCE ONE Administration Ondansetron HCl 4 mg 04/29/20 19:57 04/29/20 19:59 Ondansetron 4mg/2ml Vial IV 04/29/20 19:58 4 mg ONCE ONE Administration ORDERS Category Date Time Status CT abdomen pelvis wo con Stat Cat Scan 04/29/20 19:28 Taken - CT Data CT Scan: Abdomen, Pelvis Time Received: 20:[address] Reviewed: Yes: I have viewed the radiologist's interpretation Preliminary Findings: Normal/NAD, No Fracture Seen Medical Decision Narrative: uncertain as to etiology -no def rash as shingles General Adult HPI - General Chief complaint: PAIN Stated complaint: back pain Time Seen by Provider: 12/20/20 20
[2020-04-29 20:58] VITALS: BP 141/72; PULSE 80; RESP 15; TEMP 36.5; O2SAT 99
== END 2020-04-29 21:09 | disposition home or self-care (01) ==
PROVIDERS: Emergency Provider Emergency Medicine; PCP Nurse Practitioner Family
DX: M54.5 Low back pain (principal); F41.8 Other specified anxiety disorders; F17.210 Nicotine dependence, cigarettes, uncomplicated
CPT/HCPCS: 74176; 80053; 81001; 85025; 85651; 86140; 96365; 96375; 99283; J2405

== ENCOUNTER 2020-05-02 07:01 | Outpatient (RCR) | payer BC, SELFPAY ==
--- NOTE | 2020-05-02 09:04 | HMH.PTOPEV ---
PT Outpatient Evaluation Rehab PT Outpatient Evaluation Start: 05/02/20 07:34 Freq: Status: Active Protocol: Document 05/02/20 07:34 RYAN (Rec: 05/02/20 09:04 [email or web address] [id number]) Electronically Signed By Phoenix Leonard, MARGY 05/02/20 07:34 Outpatient Therapy Subjective History Subjective History Pt. is a 54 year old female who presents to Outpatient PT clinic w/ complaints of subacute and constant LUE anterior hand/ wrist and thenar P! s/p LUE Carpal Tunnel Release(CTR) on 02/09/2020. Pt. reports symptoms worsen w/ activities that include opening/hold jars and objects. Pt. reports symptom relief w/ ice and her brace. Pt. denies having injections for current pathology post surgery, but states it being a possibility if no success w/ Physical Therapy. Current medications include Zoloft, Welbutrin, and Trazadone. PMH includes NC x 1, Depression disorder, Hyperlipidemia, LUE RC repair, Tubal Ligation, and a Cholecystectomy. Chief Complaint Pain,Stiff,Weakness,Decreased [employer] Strength Symptom Type Throb,Burning,Shooting,Other Symptoms Relieved By Heat,Ice,Brace/Support Symptoms Aggravated By Physical Activity,Twisting, Lifting Prior Functional Limitations None Current Functional Limitations Lifting,Housework,Recreation Activity Symptom Description Constant but Variable Level of pain today (0-10) 2 Pain scale - at its best (0-10) 1 Pain scale - at its worst (0-10) 10 Wrist/Hand Eval Palpation Tenderness/Visual Exam Wrist pain left tenderness wrist exam standard left Wrist/Hand Palpation Findings Tenderness thenar eminence atrophy hand/finger exam left standard Wrist/Hand Palpation Overall Comment grade 3 +TTP to thenar/carpal tunnel anatomically Flexibility Deficits Wrist Extensors Muscle Length (L) Moderate Tightness Wrist Flexors Muscle Length (L) Severe Tightness Supinator Muscle Length (L) Moderate Tightness Pronator Muscle Length (L) Moderate Tightness Hand
== END 2020-05-28 16:30 | disposition home or self-care (01) ==
LOC: PT.CARL 07:01
PROVIDERS: PCP Nurse Practitioner Family; Visit Provider Orthopaedic Surgery
DX: G56.02 Carpal tunnel syndrome, left upper limb (principal)
CPT/HCPCS: 97010; 97014; 97035; 97110; 97163; G0283

== ENCOUNTER 2020-08-01 19:08 | Emergency (ER) | payer BC, SELFPAY ==
[2020-08-01 19:21] VITALS: BP 145/82; PULSE 68; RESP 14; TEMP 36.9; O2SAT 99; BMI 33.5
--- NOTE | 2020-08-01 19:29 | XR_ITS ---
PROCEDURE: XR KNEE RT 3V CLINICAL INDICATION: PAIN COMPARISON: CR XR KNEE LT 3V from 03/13/2020 FINDINGS: On the AP view there is a faint calcific density overlying the intercondylar notch of the distal femur. In the appropriate clinical setting, this could be related to an avulsion fracture. The joint spaces are well-preserved. Minimal spurring noted at the posterior patella. No erosive changes evident. Other findings:Soft tissue calcifications anterior to the proximal tibia. IMPRESSION: 1. Faint transverse calcific density at the intercondylar notch of the femur and could be due to an avulsion injury or an unusual osteophyte. Please correlate with clinical parameters. 2. Minimal osteoarthritic change. Dictated by: Nabeel Lozano MD 08/02/2020 05:38 Nabeel Lozano MD in [place] 08/02/2020 05:38
--- NOTE | 2020-08-01 19:29 | XR_ITS ---
PROCEDURE: XR KNEE LT 3V CLINICAL INDICATION: PAIN COMPARISON: CR XR KNEE LT 3V from 03/13/2020 CR XR KNEE RT 3V from 08/01/2020 FINDINGS: No fracture or dislocation. No lytic or blastic change. There is normal mineralization. The joint spaces are well-preserved. No significant degenerative/arthritic changes. No erosive changes evident. Other findings:None. IMPRESSION: No acute findings. Dictated by: Nabeel Lozano MD 08/02/2020 05:34 Nabeel Lozano MD in [place] 08/02/2020 05:34
--- NOTE | 2020-08-01 19:36 | HMH.EDUTC ---
[facility] [place] Clinical Impression: Bilateral knee pain Qualifiers: Chronicity: unspecified Qualified Code(s): M25.561 - Pain in right knee; M25.562 - Pain in left knee Disposition: Home, Self-Care Condition on Discharge: Good Instructions: How to Choose and Use a Walker, How to Apply an Linus Wrap, DI for Knee Pain Additional Instructions: *weight bearing as tolerated use walker to aid with walking *RICE, Rest the extremity, Ice 15-20 minutes 3-4 times daily, Compress- wear the linus wrap as discussed as much as possible to help reduce swelling and pain, Elevate the extremity when at rest *Linus wrap is for support and help control swelling, use it except in the shower. Be sure that is not to tight but not to loose either *Elevate when resting *Ibuprofen every 6-8 hours as needed for pain an inflammation. If need something more can take Tylenol in between doses of Ibuprofen to help Immediately follow up with your family doctor for new or worsening of symptoms, or no noticeable improvement over the next 3-5 days Follow up with Family Doctor if no improvement or any worsening of symptoms Return if needed Straight to ER if any life threatening symptoms Prescriptions: Walker [Walker, Standard] 1 each MISCELLANE DIRECTED #1 each Prescription Printed Referrals: Princess Sampson [Primary Care Provider] - As needed Time of Disposition: 20:22 Medical Decision Making - Bartolo Inquiry Pt receiving controlled substance: No Bartolo was queried for this patient: No Vital Signs: 08/01/20 19:21 Temperature 98.5 F Temperature Source Tympanic Pulse Rate [Right] 68 Respiratory Rate 14 Blood Pressure [Right Arm] 145/82 H Blood Pressure Mean [Right Arm] 103 Blood Pressure Source [Right Arm] Automatic Cuff Blood Pressure Position [Right Arm] Sitting 02 Sat by Pulse Oximetry 99 Oxygen Delivery Method Room Air Orders (Tests/Meds): ORDERS Category Date Time Status XR knee LT 3V Stat Exams 08/01/20 19:29 Taken XR knee RT 3V Stat Exams 08/01/20 19:29 Taken - Radiology Data #1 Image(s): Knee (left) Image Reviewed: Yes I reviewed the patient's radiology image w/the ED provider Preliminary Findings: No Fracture Seen #2 Image(s): Knee (right) Image Reviewed: Yes I reviewed the patient's radiology image w/the ED provider Preliminary Findings: No Fracture Seen [facility] [place] - General Stated complaint: pain in kness Time Seen by Provider: 08/01/20 19:39 Mode of Arrival: Ambulatory Source of Information: Patient Limitations: No Limitations Description of Symptoms (Recalled from Triage Doc. by RN): pt states she is having moderate to sever pain in both knees/lower legs for 2 wks. also, tingling/numbness and no pressure tolerated on R knee. pain is 8/10 when bearing wt. HEENT Symptoms (Recalled from RN notes): No Resp Symptoms (Recalled from RN notes): No Skin Symptoms (Recalled from RN notes): No MS Symptoms (Recalled from RN notes): Yes (bilateral knee/lower leg pain.) Functional Status (Recalled from RN notes): na - History of Present Illness Provider Complaint: Patient states that she has had gastric bypass surgery and has lost alot of weight States that for the last two weeks she has been having pain in both her knees when she walks on them States that when she is walking pain is an 8/10 and when she is sitting it is much better States that after she has been up on her legs for awhile pain is worse in right knee and shoots tingling like pain down her right lower leg - Related Data Home Medications Medication Instructions Recorded Confirmed Buspirone HCl [Buspirone 15 mg 15 mg PO BID 10/25/19 03/28/20 Tablets] Escitalopram Oxalate [Lexapro] 20 mg PO DAILY 10/25/19 03/28/20 Trazodone HCl [Desyrel 50mg tablet] 50 mg PO HS 10/25/19 03/28/20 buPROPion HCL [Bupropion Xl] 300 mg PO DAILY 10/25/19 03/28/20 hydrOXYzine pamoate [Vistaril 25mg 25 mg PO DAILY 10/25/19 03/28/20 capsule] Magnesium Oxide [Magnesium
[2020-08-01 20:34] VITALS: BP 136/87; PULSE 80; RESP 16; TEMP 36.6
== END 2020-08-01 20:35 | disposition home or self-care (01) ==
PROVIDERS: Emergency Provider Nurse Practitioner; PCP Nurse Practitioner Family
DX: M25.561 Pain in right knee (principal); M25.562 Pain in left knee; F41.8 Other specified anxiety disorders; Z98.84 Bariatric surgery status; E66.9 Obesity, unspecified; Z68.33 Body mass index [BMI] 33.0-33.9, adult; Z88.0 Allergy status to penicillin; F17.210 Nicotine dependence, cigarettes, uncomplicated; Z79.899 Other long term (current) drug therapy
CPT/HCPCS: 73562; 99202; G0463

== ENCOUNTER 2020-10-21 15:20 | Emergency (ER) | payer BC, SELFPAY ==
--- NOTE | 2020-10-21 15:35 | XR_ITS ---
PROCEDURE INFORMATION: Exam: XR Left Foot Exam date and time: 10/21/2020 3:35 PM Age: 55 years old Clinical indication: Left; Patient HX: Stubbed foot, pain in 4th and 5th toes; Additional info: Injury to toes TECHNIQUE: Imaging protocol: XR Left foot. Views: 3 or more views. COMPARISON: No relevant prior studies available. FINDINGS: Bones/joints: Normal anatomic alignment. There is no evidence of acutely displaced fractures. There is no evidence of joint dislocation. No aggressive osseous lesions. Well-defined ovoid lucency in the anterior segment of the distal tibial metaphysis could be artifactual or related to a bone cyst at this level. This lesion does not demonstrate any aggressive fissures. Soft tissues: There is no significant soft tissue swelling. IMPRESSION: Negative for acute skeletal pathology.
[2020-10-21 16:00] VITALS: BP 125/70; PULSE 72; RESP 19; TEMP 36.6; O2SAT 98; BMI 34.4
--- NOTE | 2020-10-21 16:54 | HMH.EDUTC ---
[facility] [place] Disposition Clinical Impression: Foot contusion Qualifiers: Encounter type: initial encounter Laterality: left Qualified Code(s): S90.32XA - Contusion of left foot, initial encounter Disposition: Home, Self-Care Condition on Discharge: Good Instructions: How To Perform RICE (Rest, Ice, Compress, Elevate), Contusion Additional Instructions: *weight bearing as tolerated *RICE, Rest the extremity, Ice 15-20 minutes 3-4 times daily, Compress- wear the linus wrap as discussed as much as possible to help reduce swelling and pain, Elevate the extremity when at rest *Linus wrap is for support and help control swelling, use it except in the shower. Be sure that is not to tight but not to loose either *Elevate when resting *Ibuprofen every 6-8 hours as needed for pain an inflammation. If need something more can take Tylenol in between doses of Ibuprofen to help Immediately follow up with your family doctor for new or worsening of symptoms, or no noticeable improvement over the next 3-5 days Call back to the [facility] later this evening for the official reading of your xray Follow up with Family Doctor or Dr Mendoza if no improvement or any worsening of symptoms Referrals: Princess Sampson [Primary Care Provider] - As needed Margie Mendoza DPM [Staff Physician] - Cortney Rajput APRN [Nurse Practitioner] - Time of Disposition: 17:03 Medical Decision Making - Bartolo Inquiry Pt receiving controlled substance: No Bartolo was queried for this patient: No Vital Signs: 10/21/20 16:00 Temperature 97.9 F Temperature Source Oral Pulse Rate [Right Brachial] 72 Respiratory Rate 19 Blood Pressure [Right Arm] 125/70 Blood Pressure Mean [Right Arm] 88 Blood Pressure Source [Right Arm] Automatic Cuff Blood Pressure Position [Right Arm] Sitting 02 Sat by Pulse Oximetry 98 Oxygen Delivery Method Room Air Orders (Tests/Meds): ORDERS Category Date Time Status XR foot LT min 3V Stat Exams 10/21/20 15:35 Taken - Radiology Data #1 Image(s): Foot/Toes Image Reviewed: Yes I reviewed the patient's radiology image Preliminary Findings: No Fracture Seen Will place in post op shoe and have patient follow up with Dr Mendoza and call back to the [facility] later this evening for official reading of xray [facility] [place] HPI - General Stated complaint: left forth and fith toe injury Time Seen by Provider: 10/21/20 16:54 Mode of Arrival: Ambulatory Source of Information: Patient Limitations: No Limitations Description of Symptoms (Recalled from Triage Doc. by RN): PATIENT STATES SHE HIT HER LEFT FOOT ON A STOOL YESTERDAY MORNING. C/O SWELLING AND PAIN TO LEFT PINKIE TOE HEENT Symptoms (Recalled from RN notes): No Resp Symptoms (Recalled from RN notes): No Skin Symptoms (Recalled from RN notes): No MS Symptoms (Recalled from RN notes): Yes Functional Status (Recalled from RN notes): WNL - History of Present Illness Provider Complaint: Patient state that she was walking through her house yesterday when she accidently kicked a stool State that she has been having pain in her 4th and 5th toe and hurts when she tries to walk on it and it is swollen and bruised - Related Data Home Medications Medication Instructions Recorded Confirmed Escitalopram Oxalate [Lexapro] 20 mg PO DAILY 10/25/19 10/21/20 Trazodone HCl [Desyrel 50mg tablet] 50 mg PO HS 10/25/19 10/21/20 buPROPion HCL [Bupropion Xl] 300 mg PO DAILY 10/25/19 10/21/20 Allergies Allergy/AdvReac Type Severity Reaction Status Date / Time penicillin G Allergy Severe Anaphylaxis Verified 08/01/20 19:20 nitrofurantoin Allergy Unknown Unknown Verified 08/01/20 19:20 [From Macrobid] allergy reaction aspirin Allergy Verified 10/21/20 16:19 codeine Allergy Verified 08/01/20 19:20 ibuprofen Allergy Verified 08/01/20 19:20 meloxicam [From Mobic] Allergy Verified 08/01/20 19:20 - Worker's Comp Is this a Worker's Comp case?: No [facility] History - Hepatitis A Screen Drug use histo
[2020-10-21 17:08] VITALS: BP 125/70; PULSE 72; RESP 19; TEMP 36.6; O2SAT 98
== END 2020-10-21 17:12 | disposition home or self-care (01) ==
PROVIDERS: Emergency Provider Nurse Practitioner; PCP Nurse Practitioner Family
DX: S90.32XA Contusion of left foot, initial encounter (principal); W22.03XA Walked into furniture, initial encounter; Y92.019 Unspecified place in single-family (private) house as the place of occurrence of the external cause; F41.8 Other specified anxiety disorders; E11.9 Type 2 diabetes mellitus without complications; F17.210 Nicotine dependence, cigarettes, uncomplicated
CPT/HCPCS: 73630; 99202; G0463

== ENCOUNTER 2020-12-18 17:14 | Emergency (ER) | payer BC, SELFPAY ==
[2020-12-18 17:30] VITALS: BP 135/70; PULSE 64; RESP 16; TEMP 36.8; O2SAT 99; BMI 33.2
--- NOTE | 2020-12-18 17:56 | HMH.EDUTC ---
[facility] [place] Disposition Clinical Impression: Acute bronchitis Qualifiers: Bronchitis organism: unspecified organism Qualified Code(s): J20.9 - Acute bronchitis, unspecified Disposition: Home, Self-Care Condition on Discharge: Good Instructions: DI for Acute Bronchitis Additional Instructions: Drink plenty of fluids. Take tylenol or ibuprofen for pain or fever. Take the medications as directed. Follow up with your regular doctor. GO TO THE ER FOR ANY WORSENING SYMPTOMS Quarantine until you know the results of your covid-19 test. If it is positive, the health department should call you and give you further instructions about your length of Quarantine and other thing. Don't start the oral steroids until tomorrow, since you had the shot here today. The cough medication (promethazine dm) will make you drowsy, so don't drive or operate heavy machinery after taking it. Prescriptions: Promethazine/Dextromethorphan [Promethazine-Dm Syrup] 5 ml PO Q6HP PRN #240 syrup PRN Reason: Cough Transmission Status: Received by [facility] guaiFENesin [Mucinex 600mg tablet] 1 - 2 tab PO BIDP PRN #30 tab.er.12h PRN Reason: Congestion Transmission Status: Received by [facility] Azithromycin [Z-Kip 250mg Tab*] 250 mg PO UD DOSE PK #6 tab Transmission Status: Received by [facility] Referrals: Princess Sampson [Primary Care Provider] - Forms: Work/School Release Time of Disposition: 19:04 Medical Decision Making - Medical Records Medical records reviewed: No: I reviewed the patient's medical records. - Bartolo Inquiry Pt receiving controlled substance: No Vital Signs: 12/18/20 17:30 12/18/20 17:59 Temperature 98.3 F 98.3 F Temperature Source Oral Pulse Rate 64 Pulse Rate [Left] 64 Respiratory Rate 16 16 Blood Pressure 135/70 Blood Pressure [Right Arm] 135/70 Blood Pressure Mean [Right Arm] 91 02 Sat by Pulse Oximetry 99 - Lab Data Lab Results 12/18/20 17:54: Strep Scn Rapid Clinic Negative Orders (Tests/Meds): ED MEDICATIONS Discontinued Medications Generic Name Dose Route Start Last Admin Trade Name Freq PRN Reason Stop Dose Admin Methylprednisolone Sodium Succinate 125 mg 12/18/20 18:37 12/18/20 18:52 Methylprednisolone Sod Succ 125mg Vial IM 12/18/20 18:38 125 mg ONCE ONE Administration ORDERS Category Date Time Status Covid-19 Nasal PCR ([facility]) Routine Lab 12/18/20 17:22 Received Strep Screen Confirmation Stat Micro 12/18/20 17:54 Received [facility] [place] HPI - General Stated complaint: sore throat, weak, cough, sob, fever Time Seen by Provider: 12/18/20 17:56 Mode of Arrival: Ambulatory Source of Information: Patient Limitations: No Limitations Description of Symptoms (Recalled from Triage Doc. by RN): Pt c/o congestion, fever, chills, body aches, cough and ear pain. Pt states she feels like she has strep. HEENT Symptoms (Recalled from RN notes): Yes Resp Symptoms (Recalled from RN notes): Yes Skin Symptoms (Recalled from RN notes): No MS Symptoms (Recalled from RN notes): No Functional Status (Recalled from RN notes): wnlk - History of Present Illness Provider Complaint: She c/o cough, chest congestion, feeling bad, sore throat and right ear pain for the past 1 week. She has not been vaccinated for covid-19. - Related Data Home Medications Medication Instructions Recorded Confirmed Escitalopram Oxalate [Lexapro] 20 mg PO DAILY 10/25/19 10/21/20 Trazodone HCl [Desyrel 50mg tablet] 50 mg PO HS 10/25/19 10/21/20 buPROPion HCL [Bupropion Xl] 300 mg PO DAILY 10/25/19 10/21/20 Previous Rx's Medication Instructions Recorded Azithromycin [Z-Kip 250mg Tab*] 250 mg PO UD DOSE PK #6 tab 12/18/20 Promethazine/Dextromethorphan 5 ml PO Q6HP PRN #240 syrup 12/18/20 [Promethazine-Dm Syrup] guaiFENesin [Mucinex 600mg tablet] 1 - 2 tab PO BIDP PRN #30 12/18/20 tab.er.12h Allergies Allergy/AdvReac Type Severity Reaction St
[2020-12-18 17:59] VITALS: BP 135/70; PULSE 64; RESP 16; TEMP 36.8; O2SAT 99
--- NOTE | 2020-12-18 17:59 | XR_ITS ---
PROCEDURE INFORMATION: Exam: XR Chest Exam date and time: 12/18/2020 5:59 PM Age: 55 years old Clinical indication: Shortness of breath; Additional info: Cough, short of breath TECHNIQUE: Imaging protocol: XR of the chest. Views: 2 views. Total images: 3 COMPARISON: CR XR CHEST 2V 12/07/2019 10:58 AM FINDINGS: Lungs: Question mild peribronchial thickening and perihilar stranding suggesting possible bronchitis. Mild hyperexpansion and hyperlucency with mild diaphragmatic flattening suggesting possible COPD. Pulmonary vasculature grossly normal. No gross pulmonary infiltrates. Pleural spaces: No pleural effusion. No pneumothorax. Heart/Mediastinum: Heart size normal. No tracheal/mediastinal shift. Bones/joints: No acute osseous abnormalities are identified. IMPRESSION: 1. Question mild peribronchial thickening and perihilar stranding suggesting possible bronchitis. No gross pulmonary infiltrates. 2. Evidence of underlying COPD.
[2020-12-18 18:01] LABS: UTC Strep Screen (Rapid) Negative (Negative)
== END 2020-12-18 19:11 | disposition home or self-care (01) ==
PROVIDERS: Emergency Provider Nurse Practitioner Family; PCP Nurse Practitioner Family
DX: J20.9 Acute bronchitis, unspecified (principal); F17.210 Nicotine dependence, cigarettes, uncomplicated
CPT/HCPCS: 71046; 87880; 96372; 99203; G0463; U0003

== ENCOUNTER 2021-03-27 14:21 | Emergency (ER) | payer BC, SELFPAY ==
[2021-03-27 15:00] VITALS: BP 131/70; PULSE 74; RESP 19; TEMP 37.1; O2SAT 99; BMI 33.2
--- NOTE | 2021-03-27 15:41 | HMH.EDUTC ---
[facility] [place] Clinical Impression: Abdominal cramping Disposition: Home, Self-Care Condition on Discharge: Good Instructions: DI for Abdominal Pain-Adult, DI for Acute Abdominal Pain Additional Instructions: Call your Doctor office upon leaving the [facility] and make appointment as advised Return if needed Straight to ER if any life threatening symptoms Follow up with the Surgeon that did your Gastric Bypass Avoid greasy fried foods and monitor your stool for dark blood or bright red blood if seen go straight to ED Referrals: Princess Sampson [Primary Care Provider] - As needed Time of Disposition: 17:03 Medical Decision Making - Bartolo Inquiry Pt receiving controlled substance: No Bartolo was queried for this patient: No Vital Signs: 03/27/21 15:00 03/27/21 17:00 Temperature 98.7 F 98.7 F Temperature Source Oral Pulse Rate 74 Pulse Rate [Right Brachial] 74 Respiratory Rate 19 19 Blood Pressure 131/70 Blood Pressure [Right Arm] 131/70 Blood Pressure Mean [Right Arm] 90 Blood Pressure Source [Right Arm] Automatic Cuff Blood Pressure Position [Right Arm] Sitting 02 Sat by Pulse Oximetry 99 Oxygen Delivery Method Room Air Orders (Tests/Meds): ED MEDICATIONS Discontinued Medications Generic Name Dose Route Start Last Admin Trade Name Freq PRN Reason Stop Dose Admin Belladonna Alkaloids 60 ml 03/27/21 16:47 03/27/21 16:50 Gi Cocktail 60ml Udc PO 03/27/21 16:48 60 ml ONCE ONE Administration Dicyclomine HCl 10 mg 03/27/21 15:56 03/27/21 16:17 Dicyclomine 10mg Capsule PO 03/27/21 15:57 10 mg ONCE ONE Administration Ondansetron HCl 4 mg 03/27/21 15:56 03/27/21 16:17 Ondansetron 4mg Odt SL 03/27/21 15:57 4 mg ONCE ONE Administration - Physician Consults Physician Consulted: Princess Sampson [employer] Time: 16:37 Comment/Response: Spoke with PCP and informed her of patient complaint and recommendation that patient go to the ED and she refused at this time Advised OK to give GI Coctail and have her call the office for appointment for further work up and evauation if patient refused transfer and inform patient to go straight to ER if pain worsens Medical Decision Narrative: Discussed with patient that we recommended that she be transferred to the ED for further work up and evaluation and patient declined States that she is not having pain more so cramping like she has had before with stomach bug Denies chest pain and denies radiation of pain patient declined transfer Patient educated on risks even and patient still declined will give zofran and bentyl and re-evaluate Patient now reports achy like burning pain in abdomen and medication didnt help much, Again recommended transfer to the ED for further work up and patient advised that she would follow up with her PCP for further treatment and evalation or return to the ED if needed spoke with PCP and informed her of recommendation that patient go to the ed and discussed giving GI coctail and see if that may help and PCP agreed Medication discussed with Pharmacy After GI cocktail patient states that pain is better and almost gone now and she verbalized understanding to call PCP office for appointment for further work up and recommended getting follow up with Gastro that did her surgery for further evaluation also [facility] [place] - General Stated complaint: stomach pains since 1115 Time Seen by Provider: 03/27/21 15:41 Mode of Arrival: Ambulatory Source of Information: Patient Limitations: No Limitations Description of Symptoms (Recalled from Triage Doc. by RN): PATIENT C/O ABDOMINAL CRAMPS TO EPIGASTRIC AREA AND VOMITING X 2 DAYS HEENT Symptoms (Recalled from RN notes): No Resp Symptoms (Recalled from RN notes): No Skin Symptoms (Recalled from RN notes): No MS Symptoms (Recalled from RN notes): No Functional Status (Recalled from RN notes): WNL - History of Present Illness Provider Complaint: Patient states that she has been havin
[2021-03-27 17:00] VITALS: BP 131/70; PULSE 74; RESP 19; TEMP 37.1; O2SAT 99
== END 2021-03-27 17:05 | disposition home or self-care (01) ==
PROVIDERS: Emergency Provider Nurse Practitioner; PCP Nurse Practitioner Family
DX: R10.13 Epigastric pain (principal); R11.10 Vomiting, unspecified; E11.9 Type 2 diabetes mellitus without complications; F41.8 Other specified anxiety disorders; F17.210 Nicotine dependence, cigarettes, uncomplicated; Z88.0 Allergy status to penicillin; Z79.899 Other long term (current) drug therapy
CPT/HCPCS: 99202; G0463

== ENCOUNTER 2021-04-24 20:57 | Emergency (ER) | payer BC, SELFPAY ==
[2021-04-24 20:56] VITALS: BP 126/62; PULSE 61; RESP 19; TEMP 36.6; O2SAT 100; BMI 34.6
--- NOTE | 2021-04-24 21:05 | ECG_ITS ---
APPROVED REPORT Exam: Resting ECG HR:60 bpm ECG Measurements Heart Rate 60 AXES [place] 146 P 75 QRSd 144 QRS 35 QT 506 T 40 QTc 506 Conclusion Normal sinus rhythm Right bundle branch block Abnormal ECG Electronically signed by : Huan Eldridge MD 04/27/2021 06:23:49
--- NOTE | 2021-04-24 21:29 | HMH.EDNVD ---
ED Disposition Clinical Impression: Chest pain Qualifiers: Chest pain type: precordial pain Qualified Code(s): R07.2 - Precordial pain Disposition: Home, Self-Care Condition on Discharge: Good Instructions: DI for Atypical Chest Pain Additional Instructions: recheck if needed and see card thursday Prescriptions: Isosorbide Mononitrate [Imdur 30mg ER tablet] 30 mg PO DAILY #30 tab Transmission Status: Pending to [facility] Referrals: Princess Sampson [Primary Care Provider] - - Critical Care Critical Care Time: No Attestation: On 04/24/21, the high probability of a clinically significant, sudden or life threatening deterioration of the following system(s) required my full and direct attention, intervention and personal management. The time I documented below is in addition to time spent performing reported procedures but includes the following listed in this critical care notation. Medical Decision Making - Medical Records Medical records reviewed: Yes: I reviewed the patient's medical records. - Bartolo Inquiry Pt receiving controlled substance: No Vital Signs: 04/24/21 20:56 Temperature 97.8 F Temperature Source Oral Pulse Rate [Right] 61 Respiratory Rate 19 Blood Pressure [Right Arm] 126/62 Blood Pressure Mean [Right Arm] 83 Blood Pressure Source [Right Arm] Automatic Cuff 02 Sat by Pulse Oximetry 100 Oxygen Delivery Method Room Air - Lab Data Lab results reviewed: Yes: I reviewed the patient's lab results. Lab Results 04/24/21 21:09: WBC 7.5, RBC 3.84 L, Hgb 10.1 L, Hct 31.2 L, MCV 81.3, MCH 26.4 L, MCHC 32.5, RDW 16.8, Plt Count 365, MPV 7.6, Neut % (Auto) 41.8, Lymph % (Auto) 46.0, Freeborn % (Auto) 5.6, Eos % (Auto) 4.9, Baso % (Auto) 1.7, Neut # (Auto) 3.2, Lymph # (Auto) 3.5, Freeborn # (Auto) 0.4, Eos # (Auto) 0.4, Baso # (Auto) 0.1 04/24/21 21:09: Sodium 139, Potassium 3.5, Chloride 109 H, Carbon Dioxide 29, Anion Gap 4.5 L, BUN 19 H, Creatinine 0.70, Estimated Creat Clear 142, Estimated GFR 87, Est GFR ( Amer) 105, Glucose 83, Calcium 8.7, Magnesium 2.1, Total Bilirubin 0.2, AST 30, ALT 13, Alkaline Phosphatase 93, Troponin I < 0.01, C-Reactive Protein 1.2, NT-Pro-B Natriuret Pep 89.9, Total Protein 6.4, Albumin 3.7, Globulin 2.7, Albumin/Globulin Ratio 1.4, Amylase 59, Lipase 42 04/24/21 21:09: Procalcitonin < 0.030 04/24/21 21:37: ESR 104 H Result diagrams: 04/24/21 21:09 04/24/21 21:09 Orders (Tests/Meds): ED MEDICATIONS Discontinued Medications Generic Name Dose Route Start Last Admin Trade Name Freq PRN Reason Stop Dose Admin Sodium Chloride 1,000 mls @ 999 mls/hr 04/24/21 21:45 04/24/21 21:49 Sod Chlor 0.9% 1000ml Bag IV 04/24/21 22:45 999 mls/hr .Q1H1M ERIK Administration Iopamidol 75 ml 04/24/21 22:11 04/24/21 22:27 Iopamidol-370 (76%);100ml Bottle IV 04/24/21 22:12 75 ml ONCE ONE Administration Nitroglycerin 1 gm 04/24/21 21:38 04/24/21 21:49 Nitroglycerin 1 Gm Ointment TD 04/24/21 21:39 1 gm ONCE ONE Administration Ondansetron HCl 4 mg 04/24/21 21:38 04/24/21 21:49 Ondansetron 4mg/2ml Vial IV 04/24/21 21:39 4 mg ONCE ONE Administration Sodium Chloride 10 ml 04/24/21 22:11 04/24/21 22:27 Sodium Chloride 0.9% 10ml Syr (Rad Only) IV 04/24/21 22:12 10 ml ONCE ONE Administration ORDERS Category Date Time Status Rapid PCR Covid and Flu A/B Stat Lab 04/24/21 22:29 Ordered Troponin I Q3H Lab 04/25/21 00:45 Ordered Troponin I Q3H Lab 04/25/21 03:45 Ordered Urinalysis and Microscopic Stat Lab 04/24/21 21:34 Ordered 12-lead EKG Request [ECG Request by /Angelique] Stat Y 04/24/21 21:38 Ordered - Radiology Data #1 Image(s): Chest Image Reviewed: Yes I have reviewed radiologist's interpretation Preliminary Findings: Normal/NAD - CT Data CT Scan: Head, Abdomen, Pelvis Time Received: 23:[address] Reviewed: Yes: I have viewed the radiologist's interpretation Preliminary Findings: Normal/NAD
--- NOTE | 2021-04-24 21:37 | XR_ITS ---
PROCEDURE INFORMATION: Exam: XR Chest Exam date and time: 04/24/2021 9:37 PM Age: 55 years old Clinical indication: Sternal or substernal pain; Patient HX: Chest pain, patient had a heart attack she states several years ago due to being morbidly obese. She had bariatric surgery. Current smoker. TECHNIQUE: Imaging protocol: XR of the chest. Views: 1 view. COMPARISON: CR XR CHEST 2V 12/18/2020 6:06 PM FINDINGS: Lungs: Unremarkable. No consolidation. Granulomatous change. Pleural spaces: Unremarkable. No pleural effusion. No pneumothorax. Heart/Mediastinum: Unremarkable. No cardiomegaly. Bones/joints: Unremarkable. IMPRESSION: No acute findings.
--- NOTE | 2021-04-24 21:41 | CT_ITS ---
PROCEDURE INFORMATION: Exam: CT Abdomen And Pelvis With Contrast Exam date and time: 04/24/2021 9:41 PM Age: 55 years old Clinical indication: Abdominal tenderness and nausea and vomiting; Prior surgery; Surgery date: 6+ months; Surgery type: Gastric sleeve, cholecystectomy; Additional info: Abd pain, n/v TECHNIQUE: Imaging protocol: Computed tomography of the abdomen and pelvis with contrast. Radiation optimization: All CT scans at this facility use at least one of these dose optimization techniques: automated exposure control; mA and/or kV adjustment per patient size (includes targeted exams where dose is matched to clinical indication); or iterative reconstruction. Contrast material: ISOVUE; Contrast volume: 75 ml; Contrast route: IV; COMPARISON: CT ABDOMEN PELVIS WO CON 04/29/2020 7:40 PM FINDINGS: Liver: Normal. No mass. Gallbladder and bile ducts: Cholecystectomy. Pancreas: Normal. No ductal dilation. Spleen: Normal. No splenomegaly. Adrenal glands: Normal. No mass. Kidneys and ureters: Normal. No hydronephrosis. Stomach and bowel: Postsurgical changes in the stomach status post gastric sleeve. No colitis or small bowel obstruction. Appendix: No evidence of appendicitis. Intraperitoneal space: Unremarkable. No free air. No significant fluid collection. Vasculature: Unremarkable. No abdominal aortic aneurysm. Lymph nodes: Unremarkable. No enlarged lymph nodes. Urinary bladder: Unremarkable as visualized. Reproductive: Unremarkable as visualized. Bones/joints: Unremarkable. No acute fracture. Soft tissues: Unremarkable. IMPRESSION: No acute findings.
--- NOTE | 2021-04-24 21:41 | CT_ITS ---
PROCEDURE INFORMATION: Exam: CT Head Without Contrast Exam date and time: 04/24/2021 9:41 PM Age: 55 years old Clinical indication: Dizziness TECHNIQUE: Imaging protocol: Computed tomography of the head without contrast. Radiation optimization: All CT scans at this facility use at least one of these dose optimization techniques: automated exposure control; mA and/or kV adjustment per patient size (includes targeted exams where dose is matched to clinical indication); or iterative reconstruction. COMPARISON: [facility] CT cervical spine wo con 10/21/2018 12:26 AM FINDINGS: Brain: Atrophy and chronic small vessel ischemic changes. No hemorrhage. No mass effect or midline shift. Cerebral ventricles: No ventriculomegaly. Paranasal sinuses: Visualized sinuses are unremarkable. No fluid levels. Mastoid air cells: Visualized mastoid air cells are well aerated. Bones/joints: Unremarkable. No acute fracture. Soft tissues: Unremarkable. IMPRESSION: Chronic changes in the brain but no acute intracranial abnormality.
[2021-04-24 21:53] LABS: Basophils # 0.1 K/mm3 (0-0.2); Basophils % 1.7 % (0.1-2.0); Eosinophils # 0.4 K/mm3 (0.0-0.4); Eosinophils % 4.9 % (0.1-12.0); Hematocrit 31.2 % (37.0-47.0); Hemoglobin 10.1 g/dL (12.2-16.2); Lymphocytes # 3.5 K/mm3 (0.7-4.5); Mean Corpuscular HGB Conc 32.5 g/dL (31.8-35.4); Mean Corpuscular Hemoglobin 26.4 pg (27.0-31.2); Mean Corpuscular Volume 81.3 fl (81-99); Mean Platelet Volume 7.6 fl (7.4-10.4); Monocytes # 0.4 K/mm3 (0.1-1.0); Monocytes % 5.6 % (1.7-9.3); Neutrophils # 3.2 K/mm3 (1.8-7.8); Neutrophils % 41.8 % (37.0-80.0); Platelet Count 365 K/mm3 (142-424); Red Blood Count 3.84 M/mm3 (4.20-5.40); Red Cell Distribution Width 16.8 % (11.5-17.5); White Blood Count 7.5 K/mm3 (4.8-10.8)
[2021-04-24 21:56] LABS: Alanine Aminotransferase 13 U/L (12-78); Albumin Level 3.7 g/dl (3.5-5.0); Albumin/Globulin Ratio 1.4 (1.1-1.8); Alkaline Phosphatase 93 U/L (38-126); Amylase 59 U/L (30-110); Anion Gap 4.5 mEq/L (5-15); Aspartate Amino Transferase 30 U/L (14-36); Bilirubin,Total 0.2 mg/dl (0.2-1.3); Blood Urea Nitrogen 19 mg/dl (7-17); Calcium 8.7 mg/dl (8.4-10.2); Carbon Dioxide 29 mmol/L (22.0-30.0); Chloride 109 mmol/L (98-107); Creatinine Clearance Estimated 142 mL/min (50-200); Estimated Glomerular Filt Rate 87 ml/min (>60); GFR (African American) 105 ML/MIN (>60); Globulin 2.7 g/dL (1.3-3.2); Glucose 83 mg/dl (74-100); Lipase 42 U/L (23-300); Magnesium 2.1 mg/dl (1.6-2.3); Potassium 3.5 mmoL/L (3.5-5.1); Sodium 139 mmol/L (136-145); Total Protein,Serum 6.4 g/dl (6.3-8.2)
[2021-04-24 22:01] LABS: C-Reactive Protein 1.2 mg/L (0-4)
[2021-04-24 22:10] LABS: NT Pro Brain Natriuretic Pep. 89.9 pg/mL (0-125)
[2021-04-24 22:11] LABS: Troponin I < 0.01 ng/ml (0.00-0.034)
[2021-04-24 22:18] LABS: Procalcitonin < 0.030 ng/mL (0.0-2.0)
[2021-04-24 22:43] LABS: Erythrocyte Sedimentation Rate 104 mm/hr (0-30)
[2021-04-24 22:55] VITALS: BP 142/74; PULSE 69; O2SAT 97
[2021-04-24 23:00] VITALS: BP 121/80; PULSE 70; O2SAT 96
--- NOTE | 2021-04-24 23:27 | PC.NURSE ---
Ronaldo on phone with Dr liang @ this time
[2021-04-24 23:30] VITALS: BP 139/77; PULSE 78; O2SAT 97
[2021-04-24 23:39] VITALS: BP 118/78; PULSE 60; RESP 20; TEMP 36.7; O2SAT 98
== END 2021-04-24 23:45 | disposition home or self-care (01) ==
PROVIDERS: Emergency Provider Emergency Medicine; PCP Nurse Practitioner Family
DX: R07.2 Precordial pain (principal); R42 Dizziness and giddiness; F41.8 Other specified anxiety disorders; E11.9 Type 2 diabetes mellitus without complications; F17.210 Nicotine dependence, cigarettes, uncomplicated; Z79.899 Other long term (current) drug therapy
CPT/HCPCS: 70450; 71045; 74177; 80053; 82150; 83690; 83735; 83880; 84145; 84484; 85025; 85651; 86140; 93005; 96365; 96375; 99283; J2405; Q9967

== ENCOUNTER → 2021-05-20 14:18 | Outpatient (CLI) | payer BC, SELFPAY ==
--- NOTE | 2021-05-20 14:18 | US_ITS ---
FINAL REPORT CLINICAL HISTORY: bleeding post menop FINDINGS: Transvaginal sonographic images of the pelvis were obtained. The uterus is small and retroverted, measuring 5.6 x 2.8 x 3.7 cm. The endometrium measures 4 mm, which is within normal limits. No uterine mass is identified. The right ovary is small measuring 1.3 cm in length and left ovary measures 2.1 cm in length. Normal blood flow seen to the ovaries. There is a 1.8 cm left ovarian cyst. There is a nabothian cyst in the cervix. There is no evidence of free fluid. IMPRESSION: 1.8 cm left ovarian cyst. Reviewed, Interpreted and Dictated by Aristeo Llamas III, MD Transcribed by Mimi Connell Authenticated by Aristeo Llamas III, MD on 05/20/2021 04:36:52 PM [facility]
== END ==
LOC: RAD 14:18
PROVIDERS: PCP Nurse Practitioner Family; Visit Provider Obstetrics & Gynecology
DX: N95.0 Postmenopausal bleeding (principal)
CPT/HCPCS: 76830

== ENCOUNTER 2021-08-13 13:16 | Emergency (ER) | payer BC, SELFPAY ==
--- NOTE | 2021-08-13 13:42 | XR_ITS ---
FINAL REPORT CLINICAL HISTORY: pain, decreased ROM FINDINGS: 2 views of the right humerus were obtained. There is no acute fracture or dislocation. The joint spaces appear intact. There is no acute soft tissue abnormality. IMPRESSION: No acute process. Reviewed, Interpreted and Dictated by Aristeo Llamas III, MD Transcribed by Ricardo Sandoval Authenticated by Aristeo Llamas III, MD on 08/13/2021 03:02:32 PM [facility]
--- NOTE | 2021-08-13 13:42 | XR_ITS ---
FINAL REPORT CLINICAL HISTORY: pain, decreased ROM FINDINGS: RIGHT SHOULDER: 3 views of the right shoulder were obtained. There is no acute fracture or dislocation. There is mild AC joint degenerative change. There is no soft tissue abnormality. IMPRESSION: Mild AC joint degenerative change. Reviewed, Interpreted and Dictated by Aristeo Llamas III, MD Transcribed by Ricardo Sandoval Authenticated by Aristeo Llamas III, MD on 08/13/2021 03:02:23 PM [facility]
[2021-08-13 13:52] VITALS: BP 118/58; PULSE 64; RESP 18; TEMP 37.1; O2SAT 98; BMI 34.7
--- NOTE | 2021-08-13 14:04 | HMH.EDUTC ---
[facility] Disposition Clinical Impression: Tendinopathy of right shoulder Right shoulder pain Qualifiers: Chronicity: acute Qualified Code(s): M25.511 - Pain in right shoulder Disposition: Home, Self-Care Condition on Discharge: Good Instructions: Shoulder Tendinopathy, DI for Shoulder Tendinopathy Additional Instructions: Rest the extremity, a Follow up with Dr. Cuba (orthopedics). I put in a referral but you need to call his office and schedule an appointment. Follow up with your regular doctor. GO TO THE ER FOR ANY WORSENING SYMPTOMS Prescriptions: Ondansetron [Zofran 4mg ODT] 4 mg PO Q8HP PRN #20 tab PRN Reason: Nausea Transmission Status: Received by [facility] methylPREDNISolone [Medrol] 4 mg PO DIRECTED 6 Days #21 packet Transmission Status: Received by [facility] Referrals: Princess Sampson [Primary Care Provider] - Chente Cuba MD [Staff Physician] - Time of Disposition: 14:48 Medical Decision Making - Medical Records Medical records reviewed: No: I reviewed the patient's medical records. - Bartolo Inquiry Pt receiving controlled substance: No Vital Signs: 08/13/21 13:52 08/13/21 15:05 Temperature 98.7 F 98.7 F Temperature Source Oral Pulse Rate 64 Pulse Rate [Left] 64 Respiratory Rate 18 18 Blood Pressure 118/58 L Blood Pressure [Right Arm] 118/58 L Blood Pressure Mean [Right Arm] 78 02 Sat by Pulse Oximetry 98 Orders (Tests/Meds): ED MEDICATIONS Discontinued Medications Generic Name Dose Route Start Last Admin Trade Name Freq PRN Reason Stop Dose Admin Ketorolac Tromethamine 60 mg 08/13/21 14:41 08/13/21 14:50 Ketorolac 60mg/2ml Vial IM 08/13/21 14:42 60 mg ONCE ONE Administration Methylprednisolone Sodium Succinate 125 mg 08/13/21 14:41 08/13/21 14:50 Methylprednisolone Sod Succ 125mg Vial IM 08/13/21 14:42 125 mg ONCE ONE Administration [facility] HPI - General Stated complaint: rt shoulder pain Time Seen by Provider: 08/13/21 14:04 Mode of Arrival: Ambulatory Source of Information: Patient Limitations: No Limitations Description of Symptoms (Recalled from Triage Doc. by RN): pt states she went to reach in the back seat of her car and felt something pop in her R shoulder. pt states she feels like something is rubbing in her should and having severe pain with any kind of movement. HEENT Symptoms (Recalled from RN notes): No Resp Symptoms (Recalled from RN notes): No Skin Symptoms (Recalled from RN notes): No MS Symptoms (Recalled from RN notes): Yes Functional Status (Recalled from RN notes): wnl - History of Present Illness Provider Complaint: She c/o right shoulder pain for the past 2 weeks. She originally began having this when she reached over her shoulder into the back to get a laptop computer. - Related Data Home Medications Medication Instructions Recorded Confirmed Escitalopram Oxalate [Lexapro] 20 mg PO DAILY 10/25/19 05/23/21 Trazodone HCl [Desyrel 50mg tablet] 100 mg PO HS 10/25/19 05/23/21 buPROPion HCL [Bupropion Xl] 300 mg PO DAILY 10/25/19 05/23/21 Rosuvastatin Calcium [Crestor 20 20 mg PO DAILY 03/27/21 05/23/21 mg Tablets] Buspirone HCl [Buspirone 15 mg 15 mg PO BID PRN 04/24/21 05/23/21 Tablets] Ondansetron [Zofran 4mg ODT] 4 mg PO TIDP PRN 04/24/21 05/23/21 Valacyclovir HCl [Valacyclovir] 500 mg PO DAILY 04/24/21 05/23/21 hydrOXYzine pamoate [Vistaril 25mg 25 mg PO HS 04/24/21 05/23/21 capsule] Previous Rx's Medication Instructions Recorded Isosorbide Mononitrate [Imdur 30mg 30 mg PO DAILY #30 tab 04/24/21 ER tablet] Ondansetron [Zofran 4mg ODT] 4 mg PO Q8HP PRN #20 tab 08/13/21 methylPREDNISolone [Medrol] 4 mg PO DIRECTED 6 Days #21 08/13/21 packet Allergies Allergy/AdvReac Type Severity Reaction Status Date / Time penicillin G Allergy Severe Anaphylaxis Verified 05/23/21 14:31 nitrofurantoin Allergy Unknown Unknown Verified 0
[2021-08-13 15:05] VITALS: BP 118/58; PULSE 64; RESP 18; TEMP 37.1
== END 2021-08-13 15:06 | disposition home or self-care (01) ==
PROVIDERS: Emergency Provider Nurse Practitioner Family; PCP Nurse Practitioner Family
DX: M65.811 Other synovitis and tenosynovitis, right shoulder (principal); E11.9 Type 2 diabetes mellitus without complications; F41.8 Other specified anxiety disorders; F17.210 Nicotine dependence, cigarettes, uncomplicated; Z79.899 Other long term (current) drug therapy; Z88.0 Allergy status to penicillin; Z88.2 Allergy status to sulfonamides; Z88.5 Allergy status to narcotic agent
CPT/HCPCS: 73030; 73060; 96372; 99213; G0463

== ENCOUNTER → 2021-09-02 14:58 | Outpatient (CLI) | payer BC, SELFPAY ==
--- NOTE | 2021-09-02 14:58 | MR_ITS ---
FINAL REPORT CLINICAL HISTORY: shouder pain. SHOULDER PAIN [id number] SINCE FEELING A POP. LIMITED ROM. PAIN IS CONSTANT. FINDINGS: Multi planar MR imaging of the right shoulder was performed. There is extensive heterogeneous signal in the distal supraspinatus tendon. There is decreased signal within the substance of the tendon that may be due to calcific or os ossific tendinitis. There is a partial full-thickness tear of the distal supraspinatus tendon. There is moderate abnormal fluid in the subacromial/subdeltoid bursa. The anterior and posterior glenoid lj appear intact. The biceps tendon appears intact. The acromioclavicular joint appears intact. IMPRESSION: High-grade partial Full-thickness tear of the Distal Supraspinatus tendon with tendinosis and probable calcific or ossific tendinitis. Reviewed, Interpreted and Dictated by Rafita Simmons MD Transcribed by Ricardo Sandoval Authenticated by Rafita Simmons MD on 09/03/2021 08:28:[address] [facility]
== END ==
PROVIDERS: PCP Nurse Practitioner Family; Visit Provider Orthopaedic Surgery
DX: M25.511 Pain in right shoulder (principal)
CPT/HCPCS: 73221

== ENCOUNTER → 2021-09-10 14:28 | Outpatient (CLI) | payer BC, SELFPAY ==
--- NOTE | 2021-09-10 14:34 | XR_ITS ---
FINAL REPORT CLINICAL HISTORY: pre op pre op clearance, patient smokes, no sx, no hypertension COMPARISON: April 24, 2021 FINDINGS: Two views of the chest were obtained. The heart size and pulmonary vascularity are within normal limits. The mediastinum is normal. No acute pulmonary abnormality is identified. There is no pneumothorax. The bony thorax is intact. IMPRESSION: No active cardiopulmonary disease. Reviewed, Interpreted and Dictated by Aristeo Llamas III, MD Transcribed by Ricardo Sandoval Authenticated by Aristeo Llamas III, MD on 09/10/2021 03:54:[address] [facility]
--- NOTE | 2021-09-10 15:52 | ECG_ITS ---
APPROVED REPORT Exam: Resting ECG HR:57 bpm ECG Measurements Heart Rate 57 AXES [place] 150 P 73 QRSd 149 QRS 81 QT 462 T 70 QTc 456 Conclusion SINUS BRADYCARDIA RIGHT BUNDLE BRANCH BLOCK [120+ ms QRS DURATION, UPRIGHT V1, 40+ ms S IN I/aVL/V4/V5/V6] ABNORMAL ECG UNCONFIRMED REPORT Electronically signed by : Huan Eldridge MD 09/11/2021 17:56:36
[2021-09-10 16:52] LABS: Basophils # 0.1 K/mm3 (0-0.2); Basophils % 1.6 % (0.1-2.0); Eosinophils # 0.2 K/mm3 (0.0-0.4); Eosinophils % 3.6 % (0.1-12.0); Hematocrit 35.8 % (37.0-47.0); Hemoglobin 11.3 g/dL (12.2-16.2); Lymphocytes # 2.9 K/mm3 (0.7-4.5); Lymphocytes % 47.7 % (10-50); Mean Corpuscular HGB Conc 31.6 g/dL (31.8-35.4); Mean Corpuscular Hemoglobin 26.9 pg (27.0-31.2); Monocytes # 0.4 K/mm3 (0.1-1.0); Neutrophils # 2.5 K/mm3 (1.8-7.8); Neutrophils % 41.1 % (37.0-80.0); Platelet Count 409 K/mm3 (142-424); Red Blood Count 4.21 M/mm3 (4.20-5.40); Red Cell Distribution Width 17.7 % (11.5-17.5)
[2021-09-10 18:11] LABS: Alanine Aminotransferase 13 U/L (12-78); Albumin Level 4.2 g/dl (3.5-5.0); Albumin/Globulin Ratio 1.6 (1.1-1.8); Alkaline Phosphatase 95 U/L (38-126); Aspartate Amino Transferase 24 U/L (14-36); Bilirubin,Total 0.4 mg/dl (0.2-1.3); Blood Urea Nitrogen 18 mg/dl (7-17); Calcium 9.2 mg/dl (8.4-10.2); Carbon Dioxide 25 mmol/L (22.0-30.0); Chloride 108 mmol/L (98-107); Estimated Glomerular Filt Rate 86 ml/min (>60); GFR (African American) 104 ML/MIN (>60); Globulin 2.6 g/dL (1.3-3.2); Glucose 79 mg/dl (74-100); Sodium 139 mmol/L (136-145); Total Protein,Serum 6.8 g/dl (6.3-8.2)
== END ==
PROVIDERS: PCP Nurse Practitioner Family; Visit Provider Orthopaedic Surgery
DX: M25.511 Pain in right shoulder (principal); Z01.818 Encounter for other preprocedural examination
CPT/HCPCS: 36415; 71046; 80053; 85025; 93005

== ENCOUNTER → 2021-09-17 16:55 | Outpatient (CLI) | payer BC, SELFPAY | PROVIDERS: PCP Nurse Practitioner Family; Visit Provider Orthopaedic Surgery | DX: Z01.812 Encounter for preprocedural laboratory examination (principal); Z11.52 Encounter for screening for COVID-19; M25.511 Pain in right shoulder | CPT/HCPCS: C9803; U0003; U0005 ==

== ENCOUNTER 2021-09-19 09:07 | Day surgery (SDC) | payer BC, SELFPAY ==
[2021-09-19] VITALS (11 sets, daily range): BP systolic 127–156; BP diastolic 52–86; PULSE 53–65; RESP 14–18; TEMP 36.2–38; O2SAT 92–100; BMI 34.1
--- NOTE | 2021-09-19 15:15 | PC.NURSE ---
T.O. for nerve block at 12:04 pm, nerve block procedure from 1205 pm- 1210 pm. Adilene Cosby CRNA preformed and APOLINAR Butt at bedside to assist. Pt. tolerated procedure without any issues.
--- NOTE | 2021-09-19 16:18 | P.PN_ITS ---
[facility] Anesthesia Checklist - Patient Identification Patient Identification: Arm Band - Structural Data Admitted From: Home Planned Operative Procedure/s: Right Shoulder Arthroscopy, RCR, SAD Consent for Planned Operative Procedure(s) Verified: Yes Verified Documents: Surgical Consent, History and Physical - NPO Status Verified Time NPO: 00:00 - Additional verifications Anesthesia Reactions: No Hx Blood Transfusions: No Blood Transfusion Reaction: No - Airway Assessment C-Spine Mobility Assessed: Yes (mp2) TMJ Mobility Assessed: Yes Dentition: Good Dentition - Neurological Assessment Level of Consciousness: Awake, Alert - Anesthesia Plan Anesthesia Risk discussed: Yes Anesthesia Plan: Verified ASA Class: II Anesthesia Type: General w/block (Interscalene) [facility] History I have reviewed the patient's past medical history: Yes Medical History: Reports:: Anxiety, Depression Denies:: Cancer, Diabetes Mellitus Type 1, Diabetes Mellitus Type 2, Internal Pacemaker, MRSA, Seizures *Have you ever received a pneumonia vaccine?: Yes *Have you received a flu vaccine this season?: No Other Medical History: Denies: Blood Transfusion Reaction Anesthesia experience/problems:: nac Laterality Cases: Left: Arthroscopy Shoulder, Bilateral: Carpal Tunnel Release Other Surgeries: Yes: Bariatric Surgery, Cholecystectomy, Colonoscopy, Tubal Ligation. No: Pacemaker Amputation: No Fractures: No - *Social History Last grade of school completed: Advanced degree Smoking Status: Current every day smoker Tobacco Type: cigarettes # Packs/Day (cigarettes): 1 Alcohol Intake: never Alcohol Intake Frequency:: holidays/special occasions only Substance Use Type: denies use *Occupational Status:: employed Housing: house *Travel in the last 8 weeks: None - Psychiatric History Pschychiatric History:: Reports:: Anxiety, Depression Family Hx:: Cancer, Hypertension
--- NOTE | 2021-09-19 16:19 | P.PN_ITS ---
[facility] Anesthesia Record Part I Intake, IV Amount: 2,000 Estimated blood loss (mL): 10 Urine output (mL): 300 Blood Pressure: 152/75 SaO2: 92 Pulse Rate: 65 Respiratory Rate: 16 Temperature: 97.2 F Patient is:: Drowsy, Stable Stable to PACU at:: 16:15
--- NOTE | 2021-09-19 16:55 | HMH.OPNOTE ---
Date of procedure: 09/19/21 Pre-op Diagnosis:: 1. Full-thickness Rotator cuff tear RIGHT shoulder 2. Biceps tendinopathy RIGHT shoulder 3. Subacromial bursitis RIGHT shoulder 4. Subacromial impingement RIGHT shoulder Post-op Diagnosis:: 1. Rotator cuff tear RIGHT shoulder- Full thickness complete tear of the supraspinatus and full thickness partial tear of infraspinatus tendons. 2. Biceps tendinopathy RIGHT shoulder 3. Subacromial bursitis RIGHT shoulder 4. Subacromial impingement RIGHT shoulder 5. Degenerative labrum and synovitis RIGHT glenohumeral joint 6.?Tendinopathy subscapularis tendon RIGHT shoulder Procedure performed:: 1. Arthroscopic rotator cuff repair, RIGHT shoulder. 2. Arthroscopic subacromial decompression with subacromial and subdeltoid bursectomy and bony acromioplasty, RIGHT shoulder. 3. Arthroscopic glenohumeral joint debridement, extensive, RIGHT shoulder. 4.? Arthroscopic biceps tenotomy, RIGHT shoulder Surgeon:: Chente Cuba MD Motorcycle Repair Shop Supervisor(s):: Delma Duffy PA-C NURSING HOME MANAGER:: Suresh Cosby Anesthesia: GETA, regional (Interscalene nerve block) Estimated blood loss (mL): 5 Clinical Note:: Patient is a 56-year-old [id number] female with history of pain and disability in the RIGHT shoulder following a minor injury about 3 months ago. She has significant pain, weakness and difficulty with the use of the arm. Preoperative evaluation was consistent with the above mentioned diagnosis. After discussion of the risks and benefits of the surgical versus nonsurgical management, the elected to proceed with surgical remediation. She previously had a left rotator cuff repair performed many years ago. Her past medical history significant for diabetes and anxiety. She is a chronic smoker. Please refer to my office note for full details. Operative findings:: There was a full-thickness crescent-shaped complete and partially retracted tear involving the whole of the supraspinatus tendon and anterior half of the infraspinatus tendons. The biceps tendon showed synovitis in the biceps groove. The labrum was frayed all around and detached around the biceps anchor. The pouch and rotator interval were synovitic. The articular surface of the humerus and glenoid did not show any significant degenerative changes. There was extensive subacromial and subdeltoid bursitis and the acromion had undersurface spurring over the anterolateral margin. Operative note:: On the day of the procedure, the patient was met and positively identified in the preoperative area; the surgical site was marked and initialed by me. I have again reviewed the clinical, x- ray and MRI findings with the patient. We had a detailed discussion about the diagnosis, implications of it, natural history and management options including both nonsurgical and surgical options for the shoulder.? Patient has decided to proceed with surgery as planned - the proposed surgery includes arthroscopic/open glenohumeral joint examination and debridement, subacromial decompression with bony acromioplasty, rotator cuff repair as needed and biceps tenotomy.? Nonsurgical alternatives explained as well which in her case would be rest, activity modification, local ice and heat as appropriate, physical therapy, local steroid injections, nonsteroidal anti-inflammatory drugs and other effective pain management measures. I told the patient that there were no guarantees with surgery; she could be no better or even worse. The complications discussed include but are not limited to infection, injury to nerves, blood vessels and tendons/ligaments, bleeding, continued symptoms, ectopic calcification, reactive bursitis, adhesive capsulitis, shoulder stiffness, chondrolysis, failure of the tendon to heal, tendon re-rupture, implant failure, likely need for further surgery, reaction to anesthetic with damage to the heart, lungs, brain, and even .? Patient elected for biceps tenotomy if needed to address biceps tendon pa
[2021-09-19 18:15] LABS: Microscopic,Cath URINE MICROSCOPIC (MICROSCOPIC)
[2021-09-19 18:17] LABS: Appearance,Urine/Cath CLEAR (Clear); Bilirubin,Cath Negative (Negative); Blood, Urine/Cath TRACE-I (Negative); Color,Urine/Cath YELLOW (Yellow); Glucose,Urine/Cath (UA) Negative (Negative); Ketones,Urine/Cath 1+ (Negative); Leukocyte Esterase,Cath Negative (Negative); Nitrate,Cath Negative (Negative); Protein,Urine/Cath Negative (Negative); Specific Gravity, Urine/Cath 1.025 (1.005-1.030); Urobilinogen,Cath 0.2 EU/dl (0.2)
[2021-09-19 18:32] LABS: RBC,Urine/Cath Occasional # /hpf (0-3); WBC,Urine/Cath Occasional #/hpf (0-3)
--- NOTE | 2021-09-20 07:31 | HMH.ANESII ---
[facility] Anesthesia Record Part II Discharge Time: 16:45 Destination: Surgical Day Care (OP Surgery) PACU nurse assessment reviewed?: Yes Patient Condition:: Good Anesthesia Complications:: None Swallowing reflex intact?: Yes Cyanosis?: No Blood Pressure: 156/82 Pulse Rate: 58 Temperature: 97.6 F Mental Status: Alert & Oriented Pain level:: 0 Nausea and/or vomitting:: None Intake, IV Amount: 0
[2021-09-20 07:32] VITALS: BP 156/82; PULSE 58; TEMP 36.4
== END 2021-09-19 17:35 | disposition home or self-care (01) ==
LOC: OR 09:08
PROVIDERS: PCP Nurse Practitioner Family; Visit Provider Orthopaedic Surgery
PROC: (CPT 29827; principal; 2021-09-19 10:45)
DX: M75.121 Complete rotator cuff tear or rupture of right shoulder, not specified as traumatic (principal); M75.21 Bicipital tendinitis, right shoulder; M75.51 Bursitis of right shoulder; M75.41 Impingement syndrome of right shoulder; Z79.899 Other long term (current) drug therapy; Z88.8 Allergy status to other drugs, medicaments and biological substances
CPT/HCPCS: 29827; 29828; 29826; 81001; 96374; C1713; J2405; J2710

== ENCOUNTER → 2021-12-17 14:24 | Outpatient (CLI) | payer BC, SELFPAY ==
--- NOTE | 2021-12-17 14:26 | XR_ITS ---
FINAL REPORT CLINICAL HISTORY: s/p rt shoulder shoulder, surgery was 09/19/[address] Cuba COMPARISON: August 13, 2021 FINDINGS: RIGHT SHOULDER: Four views of the right shoulder were obtained. There are postoperative changes of the humeral head. There is no acute fracture or dislocation. There is mild degenerative change. There is no soft tissue abnormality. IMPRESSION: Postoperative and degenerative change. Reviewed, Interpreted and Dictated by Aristeo Llamas III, MD Transcribed by Mimi Connell Authenticated and [facility]
== END ==
PROVIDERS: PCP Nurse Practitioner Family; Visit Provider Orthopaedic Surgery
DX: M67.911 Unspecified disorder of synovium and tendon, right shoulder (principal)
CPT/HCPCS: 73030

== ENCOUNTER 2022-01-06 17:00 | Outpatient (RCR) | payer BC, SELFPAY ==
--- NOTE | 2021-10-22 17:45 | HMH.PTOPEV ---
PT Outpatient Evaluation Rehab PT Outpatient Evaluation Start: 10/22/21 15:14 Freq: Status: Active Protocol: Document 10/22/21 15:14 RYAN (Rec: 10/22/21 17:44 [email or web address] [id number]) Electronically Signed By Phoenix Leonard, PT 10/22/21 15:14 Outpatient Therapy Subjective History Subjective History Pt. is a 56 year old female who presents to [facility] Outpatient Physical Therapy Services in [place] for the initial evaluation this date( 10/22/21) w/ c/o subacute and constant RUE shldr. post- surgical P!, burning, and weakness S/P RUE shldr. RC Repair on 09/19/21. Pt. reports MIRELLA was when pt. reached behind her into the back seat of a car and heard a pop. Pt. reports waiting for the pain to go away, but stated the pain only worsened. Pt. describes symptoms as a constant burning throb in her shldr. that is sharp w/ movement. Pt. reports having symptom relief w/ rest, bracing, and icing. Pt. reports being instructed to remain in sling at all times unless shower, to begin weaning from sling once pt. goes to Physical Therapy and begins PROM. Pt. also reports post-surgical restrictions of no lifting above 5# nor pushing/pulling. Pt. RTMD 11/29. Pt. reports currently working from home which requires increased typing on her computer. Current medications include Percocet and Narco. PMH includes Depression and Anxiety Disorder, Hyperlipidemia, LUE shldr. RC Repair, B/L Carpal Tunnel Surgeries, Cholecystectomy, and a Hemorrhoidectomy. Chief Complaint Pain,Spasms,Stiff,Weakness, Decreased Grain Mixer Strength Symptom Type Ache
== END 2022-03-07 10:25 | disposition home or self-care (01) ==
LOC: PT.CARL 17:00
PROVIDERS: PCP Nurse Practitioner Family; Visit Provider Orthopaedic Surgery
DX: M25.511 Pain in right shoulder (principal); M75.41 Impingement syndrome of right shoulder; M67.911 Unspecified disorder of synovium and tendon, right shoulder; M75.101 Unspecified rotator cuff tear or rupture of right shoulder, not specified as traumatic; M75.21 Bicipital tendinitis, right shoulder
CPT/HCPCS: 97010; 97014; 97033; 97110; 97140; 97163; 97164; 97530; G0283

== ENCOUNTER 2022-01-24 08:00 | Emergency (ER) | payer BC, SELFPAY ==
[2022-01-24 08:21] VITALS: BP 131/76; PULSE 66; RESP 16; TEMP 36.5; O2SAT 98; BMI 34.4
--- NOTE | 2022-01-24 08:40 | EXP.UTC ---
Discharge Plan Disposition Patient Disposition: Home, Self-Care Condition: Good Prescriptions Prescriptions: New azithromycin [Zithromax Z-Kip] 250 mg tablet See Rx Instructions .ROUTE .COMPLEX Qty: 6 0RF Rx Instructions: For 250 mg dose pack: take 500 mg today (day 1), then 250 mg for 4 days (days 2-5) methylprednisolone [Medrol (Kip)] 4 mg tablets,dose pack See Rx Instructions .Route .COMPLEX 6 Days Qty: 21 0RF Rx Instructions: taper pack; No Action oxycodone-acetaminophen [Percocet] 5-325 mg tablet 1 tab PO Q4-6H PRN (Reason: pain) Qty: 60 0RF cyclobenzaprine 5 mg tablet 5 mg PO TID PRN (Reason: muscle spasm) Qty: 20 0RF hydrocodone-acetaminophen 5-325 mg tablet 1 tab PO Q4-6H PRN (Reason: pain) Qty: 30 0RF trazodone 50 MG tablet 100 mg PO HS escitalopram oxalate 20 MG tablet 20 mg PO DAILY bupropion HCl 300 MG tablet extended release 24 hr 300 mg PO DAILY rosuvastatin 20 MG tablet 20 mg PO DAILY valacyclovir 500 MG tablet 500 mg PO DAILY ondansetron 4 MG tablet,disintegrating 4 mg PO TIDP PRN (Reason: n/v) buspirone 15 MG tablet 15 mg PO BID PRN (Reason: break through anxiety) hydroxyzine pamoate 25 MG capsule 25 mg PO HS methylprednisolone 4 MG tablets,dose pack 4 mg PO DIRECTED Referrals Follow up/Referrals: Princess Sampson [Primary Care Provider] - See instructions Activity Restrictions/Add. Instructions Additional Instructions/Restrictions: *Monitor Temp, Over the counter Motrin or Tylenol as directed/as needed Tylenol every 4 hours and Motrin every 6 hours (as long as your family doctor has told you that you can take it) for fever or pain. and straight to ER if unable to lower temp less than 101.0 after medication given *Warm salt water gargles may help to soothe the throat *Throat Lozenges? *Warm fluids like tea with honey may help to soothe the throat? *Sleep elevated *Humidifier/Vaporizer Follow up IMMEDIATELY for new or worsening symptoms or no Noticeable improvement over the next 48-72 hours. 911 for difficulty breathing or swallowing You were tested for today for COVID19 your test result should be back in the next 24-48 hours, you may check your results on the [facility] My Health Portal Make sure to take your Vitamins Vit. C Vit D and Zinc if you can take them Clinical Impressions Clinical Impression: Sinusitis Instructions Patient Instructions: DI for Sinusitis, Sinusitis Discharge ED Provider: Tamara Serra [facility] HPI General Stated complaint: Fever, drainage, congestion, BA, Ear pain Time Seen by Provider: 01/24/22 08:40 History of Present Illness Provider Complaint: Patient states that she has been having sinus pressure and congestion for about 3-4 days that has continued to get worse States that she is having pressure behind her eyes, pain in both ears, scratchy throat and body aches States that today she was still feeling bad and cannot breath out of her nose so she came in to get checked out Related Data Home Medications Medication Instructions Recorded Confirmed bupropion HCl 300 mg 24 hr tablet, 300 mg PO DAILY Depression 10/25/19 11/21/21 extended release escitalopram oxalate 20 mg tablet 20 mg PO DAILY Depression 10/25/19 11/21/21 trazodone 50 mg tablet 100 mg PO HS Insomnia 10/25/19 11/21/21 rosuvastatin 20 mg tablet 20 mg PO DAILY Cholesterol 03/27/21 11/21/21 buspirone 15 mg tablet 15 mg PO BID PRN break through 04/24/21 11/21/21 anxiety hydroxyzine pamoate 25 mg capsule 25 mg PO HS Anxiety 04/24/21 11/21/21 ondansetron 4 mg disintegrating 4 mg PO TIDP PRN n/v 04/24/21 11/21/21 tablet valacyclovir 500 mg tablet 500 mg PO DAILY cold sores 04/24/21 11/21/21 methylprednisolone 4 mg tablets in 4 mg PO DIRECTED steroid 09/19/21 11/21/21 a dose pack Previous Rx's Medication Instructions Recorded cyclobenzaprine 5 mg tablet 5 mg PO T
[2022-01-24 09:03] LABS: UTC Influenza A Antigen Negative (Negative)
[2022-01-24 09:04] LABS: UTC Influenza B Antigen Negative (Negative)
[2022-01-24 09:13] VITALS: BP 131/76; PULSE 66; RESP 16; TEMP 36.5; O2SAT 98
== END 2022-01-24 09:15 | disposition home or self-care (01) ==
PROVIDERS: Emergency Provider Nurse Practitioner; PCP Nurse Practitioner Family
DX: J32.9 Chronic sinusitis, unspecified (principal); Z20.822 Contact with and (suspected) exposure to COVID-19
CPT/HCPCS: 87804; 99212; C9803; G0463; U0003; U0005

== ENCOUNTER 2022-04-23 14:24 | Emergency (ER) | payer BC, SELFPAY ==
--- NOTE | 2022-04-23 16:00 | EXP.UTC ---
Discharge Plan Disposition Patient Disposition: Home, Self-Care Condition: Good Prescriptions Prescriptions: New promethazine 25 mg Tablet 25 mg PO Q6H PRN (Reason: Nausea And Vomiting) Qty: 20 0RF ondansetron 4 mg Tablet,Disintegrating 4 mg PO Q8H PRN (Reason: Nausea) Qty: 20 0RF No Action oxycodone-acetaminophen [Percocet] 5-325 mg tablet 1 tab PO Q4-6H PRN (Reason: pain) Qty: 60 0RF cyclobenzaprine 5 mg tablet 5 mg PO TID PRN (Reason: muscle spasm) Qty: 20 0RF hydrocodone-acetaminophen 5-325 mg tablet 1 tab PO Q4-6H PRN (Reason: pain) Qty: 30 0RF azithromycin [Zithromax Z-Kip] 250 mg tablet See Rx Instructions .ROUTE .COMPLEX Qty: 6 0RF Rx Instructions: For 250 mg dose pack: take 500 mg today (day 1), then 250 mg for 4 days (days 2-5) methylprednisolone [Medrol (Kip)] 4 mg tablets,dose pack See Rx Instructions .Route .COMPLEX 6 Days Qty: 21 0RF Rx Instructions: taper pack; trazodone 50 MG tablet 100 mg PO HS escitalopram oxalate 20 MG tablet 20 mg PO DAILY bupropion HCl 300 MG tablet extended release 24 hr 300 mg PO DAILY rosuvastatin 20 MG tablet 20 mg PO DAILY valacyclovir 500 MG tablet 500 mg PO DAILY ondansetron 4 MG tablet,disintegrating 4 mg PO TIDP PRN (Reason: n/v) buspirone 15 MG tablet 15 mg PO BID PRN (Reason: break through anxiety) hydroxyzine pamoate 25 MG capsule 25 mg PO HS methylprednisolone 4 MG tablets,dose pack 4 mg PO DIRECTED Referrals Follow up/Referrals: Princess Sampson [Primary Care Provider] - See instructions Activity Restrictions/Add. Instructions Additional Instructions/Restrictions: Drink plenty of fluids. Take tylenol or ibuprofen for pain or fever. Take the medications as directed. Follow up with your regular doctor. GO TO THE ER FOR ANY WORSENING SYMPTOMS I sent a prescription for zofran and promethazine. The promethazine will make you very drowsy, so don't drive or operate heavy machinery after taking that one. Zofran usually doesn't make a person as drowsy and promethazine,. Clinical Impressions Clinical Impression: Gastroenteritis Stand Alone Forms Stand Alone Forms: Work/School Release Instructions Patient Instructions: DI for Viral Gastroenteritis -- Adult, Ondansetron Discharge ED Provider: Jt Matthew [facility] General Stated complaint: vomiting, diarrhea Time Seen by Provider: 04/23/22 16:00 History of Present Illness Provider Complaint: She states that for the past 1 day she has had n/v/d. Her son has had similar symptoms. She thinks that she has a stomach virus. Related Data Home Medications Medication Instructions Recorded Confirmed bupropion HCl 300 mg 24 hr tablet, 300 mg PO DAILY Depression 10/25/19 11/21/21 extended release escitalopram oxalate 20 mg tablet 20 mg PO DAILY Depression 10/25/19 11/21/21 trazodone 50 mg tablet 100 mg PO HS Insomnia 10/25/19 11/21/21 rosuvastatin 20 mg tablet 20 mg PO DAILY Cholesterol 03/27/21 11/21/21 buspirone 15 mg tablet 15 mg PO BID PRN break through 04/24/21 11/21/21 anxiety hydroxyzine pamoate 25 mg capsule 25 mg PO HS Anxiety 04/24/21 11/21/21 ondansetron 4 mg disintegrating 4 mg PO TIDP PRN n/v 04/24/21 11/21/21 tablet valacyclovir 500 mg tablet 500 mg PO DAILY cold sores 04/24/21 11/21/21 methylprednisolone 4 mg tablets in 4 mg PO DIRECTED steroid 09/19/21 11/21/21 a dose pack Previous Rx's Medication Instructions Recorded cyclobenzaprine 5 mg tablet 5 mg PO TID PRN muscle spasm #20 09/19/21 tabs oxycodone-acetaminophen 5 mg-325 1 tab PO Q4-6H PRN pain #60 tabs 09/19/21 mg tablet (Percocet) hydrocodone 5 mg-acetaminophen 325 1 tab PO Q4-6H PRN pain #30 tabs 10/01/21 mg tablet azithromycin 250 mg tablet See Rx Instructions PO .COMPLEX #6 01/24/22 (Zithromax Z-Kip) tabs methylprednisolone 4 mg tablets in See Rx Instructions .Route 01/24/22 a dose
[2022-04-23 16:06] VITALS: BP 136/73; PULSE 65; RESP 16; TEMP 36.7; O2SAT 99; BMI 34.4
[2022-04-23 16:40] VITALS: BP 136/73; PULSE 65; RESP 16; TEMP 36.7
== END 2022-04-23 16:48 | disposition home or self-care (01) ==
PROVIDERS: Emergency Provider Nurse Practitioner Family; PCP Nurse Practitioner Family
DX: R11.2 Nausea with vomiting, unspecified (principal); R19.7 Diarrhea, unspecified; R10.9 Unspecified abdominal pain; F17.210 Nicotine dependence, cigarettes, uncomplicated; Z79.52 Long term (current) use of systemic steroids; Z79.899 Other long term (current) drug therapy; Z88.0 Allergy status to penicillin; Z88.5 Allergy status to narcotic agent; Z88.6 Allergy status to analgesic agent; Z88.8 Allergy status to other drugs, medicaments and biological substances
CPT/HCPCS: 99212; G0463

== ENCOUNTER → 2022-07-31 14:19 | Outpatient (CLI) | payer BC, SELFPAY ==
--- NOTE | 2022-07-31 14:22 | XR_ITS ---
FINAL REPORT CLINICAL HISTORY: shoulder pain hx of shoulder sx COMPARISON: 12/17/2021 FINDINGS: Right shoulder Three views were obtained. There is no acute fracture or dislocation. The joint spaces appear normal. There are postoperative changes from prior supraspinatus tendon repair. Two tendon anchors are seen in the greater tuberosity. No soft tissue abnormality is identified. IMPRESSION: Postsurgical change as above Reviewed, Interpreted and Dictated by Rafita Simmons MD Transcribed by Belkys Mendoza Authenticated and [facility]
== END ==
LOC: RAD 14:20
PROVIDERS: PCP Nurse Practitioner Family; Visit Provider Orthopaedic Surgery
DX: M25.511 Pain in right shoulder (principal)
CPT/HCPCS: 73030

== ENCOUNTER → 2022-08-13 08:33 | Outpatient (CLI) | payer BC, SELFPAY ==
--- NOTE | 2022-08-13 08:41 | IR_ITS ---
FINAL REPORT CLINICAL HISTORY: MRI arthrogram rt shoulder, ft 0:12 FINDINGS: RIGHT SHOULDER ARTHROGRAM HISTORY: Chronic right shoulder pain, prior rotator cuff tear. ATTENDING PHYSICIAN: Dr. Simmons. PHYSICIAN WEB PRODUCTION MANAGER: Ivett Reynoso PA-C. PROCEDURE: Informed consent was obtained from the patient. A timeout procedure was performed prior to beginning. Fluoroscopy was utilized to localize the right shoulder joint space. Skin was marked appropriately. Patient was prepped and draped in the usual sterile fashion over the right shoulder. Skin was anesthetized with 1% lidocaine. Access to the joint space was obtained using a 3-1/2 inch spinal needle. A small amount of the contrast was injected to confirm needle placement. This was confirmed. Subsequently, approximately 20 mL of dilute gadolinium were gently injected into the joint space. Patient tolerated the procedure well and left the department in good condition. Fluoroscopy time: 12 seconds. 2 images were saved. IMPRESSION: Technically successful injection of contrast into the right shoulder for right shoulder arthrogram. Please see MRI report. Reviewed, Interpreted and Dictated by Rafita Simmons MD Transcribed by Ivett Reynoso PA-C Authenticated and . [facility]
--- NOTE | 2022-08-13 08:41 | MR_ITS ---
FINAL REPORT CLINICAL HISTORY: rt arthrogram shoulder right shoulder pain, limited rom, previous surgery september 2021 FINDINGS: Multi planar MR imaging of the right shoulder was performed after the intra-articular injection of dilute gadolinium contrast. There is complete disruption of the supraspinatus tendon. The tendon is proximally retracted 3.4 cm. Contrast is seen extending from the joint space to the subacromial/subdeltoid bursa. Magnetic artifact in the greater tuberosity of the humerus is consistent with prior supraspinatus tendon repair. On the axial images the anterior and posterior glenoid lj appear intact. The biceps tendon appears intact. There are moderate hypertrophic changes of the AC joint. IMPRESSION: Complete disruption of the supraspinatus tendon consistent with a recurrent tear. Moderate hypertrophic changes of the AC joint. Reviewed, Interpreted and Dictated by Rafita Simmons MD Transcribed by Belkys Mendoza Authenticated and [facility]
== END ==
LOC: RAD 08:34
PROVIDERS: PCP Nurse Practitioner Family; Visit Provider Orthopaedic Surgery
DX: M25.511 Pain in right shoulder (principal); S49.92XS Unspecified injury of left shoulder and upper arm, sequela
CPT/HCPCS: 73040; 73222; Q9967

== ENCOUNTER 2022-10-17 08:43 | Emergency (ER) | payer BC, SELFPAY ==
[2022-10-17 09:05] VITALS: BP 148/75; PULSE 70; RESP 18; TEMP 37; O2SAT 98; BMI 36.3
--- NOTE | 2022-10-17 09:16 | EXP.UTC ---
Discharge Plan Disposition Patient Disposition: Home, Self-Care Condition: Good Prescriptions Prescriptions: New azithromycin [Zithromax Z-Kip] 250 mg tablet See Rx Instructions .ROUTE .COMPLEX 5 Days Qty: 6 0RF Rx Instructions: For 250 mg dose pack: take 500 mg today (day 1), then 250 mg for 4 days (days 2-5) methylprednisolone [Medrol (Kip)] 4 mg tablets,dose pack See Rx Instructions .Route .COMPLEX 6 Days Qty: 21 0RF Rx Instructions: taper pack; fluticasone propionate [Flonase Allergy Relief] 50 mcg/actuation spray,suspension 1 spray intranasal DAILY Qty: 16 0RF Rx Instructions: administer into each nostril daily No Action oxycodone-acetaminophen [Percocet] 5-325 mg tablet 1 tab PO Q4-6H PRN (Reason: pain) Qty: 60 0RF cyclobenzaprine 5 mg tablet 5 mg PO TID PRN (Reason: muscle spasm) Qty: 20 0RF hydrocodone-acetaminophen 5-325 mg tablet 1 tab PO Q4-6H PRN (Reason: pain) Qty: 30 0RF azithromycin [Zithromax Z-Kip] 250 mg tablet See Rx Instructions .ROUTE .COMPLEX Qty: 6 0RF Rx Instructions: For 250 mg dose pack: take 500 mg today (day 1), then 250 mg for 4 days (days 2-5) methylprednisolone [Medrol (Kip)] 4 mg tablets,dose pack See Rx Instructions .Route .COMPLEX 6 Days Qty: 21 0RF Rx Instructions: taper pack; trazodone 50 MG tablet 100 mg PO HS escitalopram oxalate 20 MG tablet 20 mg PO DAILY bupropion HCl 300 MG tablet extended release 24 hr 300 mg PO DAILY rosuvastatin 20 MG tablet 20 mg PO DAILY valacyclovir 500 MG tablet 500 mg PO DAILY ondansetron 4 MG tablet,disintegrating 4 mg PO TIDP PRN (Reason: n/v) buspirone 15 MG tablet 15 mg PO BID PRN (Reason: break through anxiety) hydroxyzine pamoate 25 MG capsule 25 mg PO HS methylprednisolone 4 MG tablets,dose pack 4 mg PO DIRECTED promethazine 25 mg Tablet 25 mg PO Q6H PRN (Reason: Nausea And Vomiting) Qty: 20 0RF ondansetron 4 mg Tablet,Disintegrating 4 mg PO Q8H PRN (Reason: Nausea) Qty: 20 0RF Referrals Follow up/Referrals: Catherine Hilario APRN [Primary Care Provider] - See instructions Activity Restrictions/Add. Instructions Additional Instructions/Restrictions: Take medication as prescribed *Monitor Temp, Over the counter Motrin or Tylenol as directed/as needed Tylenol every 4 hours and Motrin every 6 hours (as long as your family doctor has told you that you can take it) for fever or pain. and straight to ER if unable to lower temp less than 101.0 after medication given *Warm salt water gargles may help to soothe the throat *Throat Lozenges? *Warm fluids like tea with honey may help to soothe the throat? *Sleep elevated *Humidifier/Vaporizer *Flonase 2 sprays in each nostril daily but be aware that it may take 2-3 days before you notice improvement Follow up IMMEDIATELY for new or worsening symptoms or no Noticeable improvement over the next 48-72 hours. 911 for difficulty breathing or swallowing Clinical Impressions Clinical Impression: Otitis media Instructions Patient Instructions: Middle Ear Infection, Ear Infections (Alternative Therapy) Discharge ED Provider: Tamara Serra [facility] General Stated complaint: Rt ear pain Mode of Arrival: Ambulatory Source of Information: Patient Limitations: No Limitations Time Seen by Provider: 10/17/22 09:16 Description of Symptoms (Recalled from Triage Doc. by RN): PATIENT C/O RIGHT EAR PAIN THAT RADIATES TO JAW X 1 WEEK HEENT Symptoms (Recalled from RN notes): Yes Resp Symptoms (Recalled from RN notes): No Skin Symptoms (Recalled from RN notes): No MS Symptoms (Recalled from RN notes): No Functional Status (Recalled from RN notes): WNL History of Present Illness Provider Complaint: Patient states that she has been having pain in her right ear that goes down in her throat and jaw area States that she feels like she may
[2022-10-17 09:20] VITALS: BP 148/75; PULSE 70; RESP 18; TEMP 37; O2SAT 98
== END 2022-10-17 09:25 | disposition home or self-care (01) ==
PROVIDERS: Emergency Provider Nurse Practitioner; PCP Nurse Practitioner Family
DX: H66.91 Otitis media, unspecified, right ear (principal); R68.84 Jaw pain; F17.210 Nicotine dependence, cigarettes, uncomplicated
CPT/HCPCS: 99212; 99214; G0463

== ENCOUNTER 2024-03-12 09:16 | Emergency (ER) | payer BC, SELFPAY ==
[2024-03-12 09:31] VITALS: BP 140/70; PULSE 81; RESP 18; TEMP 36.8; O2SAT 98; BMI 43.0
--- NOTE | 2024-03-12 09:52 | ED_ITS ---
Discharge Plan Disposition Patient Disposition: Home, Self-Care Condition: Good Prescriptions Prescriptions: New doxycycline hyclate 100 mg capsule 100 mg PO BID 10 Days Qty: 20 0RF methylprednisolone [Medrol (Kip)] 4 mg tablets,dose pack See Rx Instructions .ROUTE .COMPLEX 6 Days Qty: 21 0RF Rx Instructions: 4 mg orally ;Medrol dose taper kip benzonatate 100 mg capsule 100 mg PO TID PRN (Reason: cough) Qty: 30 0RF No Action buspirone 15 MG tablet 15 mg PO BID PRN (Reason: break through anxiety) atorvastatin 40 mg tablet 40 mg PO DIRECTED trazodone 100 mg tablet 100 mg PO DAILY albuterol sulfate 90 mcg/actuation HFA aerosol inhaler 90 mcg INHALATION DIRECTED rtzxqdfefzsfrya-lhwoogpsz-BG 2-30-10 mg/5 mL syrup 5 ml PO DIRECTED hydroxyzine pamoate 25 mg capsule 25 mg PO DAILY escitalopram oxalate 20 mg tablet 20 mg PO DAILY bupropion HCl 300 mg tablet extended release 24 hr 300 mg PO DAILY Referrals Follow up/Referrals: Provider,Referral, MD [Primary Care Provider] - See instructions Activity Restrictions/Add. Instructions Additional Instructions/Restrictions: Take medication as prescribed. Increase fluids and rest. Follow up next week with PCP. If shortness of air increase then go to the ER. Clinical Impressions Clinical Impression: Acute lower respiratory infection Instructions Patient Instructions: Acute Bronchitis Print Language Print Language: Monegasque Discharge ED Provider: Carol Torres [facility] HPI General Stated complaint: covid+, SOB, sean, cough, headache Mode of Arrival: Ambulatory Source of Information: Patient Time Seen by Provider: 03/12/24 09:52 Description of Symptoms (Recalled from Triage Doc. by RN): COVID + LAST THURSDAY IN DOCTORS OFFICE CONTINUES TO HAVE WORSING DRY COUGH, FATIGUE, CONGESTION, N/V/D, BODY ACHES HEENT Symptoms (Recalled from RN notes): Yes Resp Symptoms (Recalled from RN notes): Yes Skin Symptoms (Recalled from RN notes): No MS Symptoms (Recalled from RN notes): No Functional Status (Recalled from RN notes): WNL History of Present Illness Provider Complaint: Pt reports that she was diagnosed with Covid last Thursday and now is suffering with diarrhea and continues to have a strong worsening cough, SOA, and fatigue. Related Data Home Medications ?Medication ?Instructions ?Recorded ?Confirmed buspirone 15 mg tablet 15 mg PO BID PRN break through 04/24/21 03/12/24 anxiety albuterol sulfate 90 mcg/actuation 90 mcg inhalation DIRECTED 03/12/24 03/12/24 aerosol inhaler atorvastatin 40 mg tablet 40 mg PO DIRECTED 03/12/24 03/12/24 qswibefgryjfgyk-dhbxqiwwvnfzvlt-CV 5 ml PO DIRECTED 03/12/24 03/12/24 2 mg-30 mg-10 mg/5 mL oral syrup bupropion HCl 300 mg 24 hr tablet, 300 mg PO DAILY 03/12/24 03/12/24 extended release escitalopram oxalate 20 mg tablet 20 mg PO DAILY 03/12/24 03/12/24 hydroxyzine pamoate 25 mg capsule 25 mg PO DAILY 03/12/24 03/12/24 trazodone 100 mg tablet 100 mg PO DAILY 03/12/24 03/12/24 Previous Rx's ?Medication ?Instructions ?Recorded benzonatate 100 mg capsule 100 mg PO TID PRN cough #30 caps 03/12/24 doxycycline hyclate 100 mg capsule 100 mg PO BID 10 days #20 caps 03/12/24 methylprednisolone 4 mg tablets in See Rx Instructions .Route 03/12/24 a dose pack (Medrol (Kip)) .COMPLEX 6 days #21 tabs Allergies Allergy/AdvReac Type Severity Reaction Status Date / Time penicillin G Allergy Severe Anaphylaxis Verified 07/31/22 15:43 nitrofurantoin Allergy Unknown Unknown Verified 07/31/22 15:43 [From Macrobid] allergy reaction aspirin Allergy Verified 07/31/22 15:43 codeine Allergy Verified 07/31/22 15:43 ibuprofen Allergy Verified 07/31/22 15:43 meloxicam [From Mobic] Allergy Verified 07/31/22 15:43 Worker's Comp Is this a Worker's Comp case?: No [facility] Disclaimer: The information contained in this section may have been updated after the patient was seen, as this information can be updated by other users. 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 current occupational exposures/hazards: Yes caffeine: Yes ROS Obtained: Yes All systems reviewed & no additional complaints except as documented Constitutional Constitutional: Reports system reviewed and no additional complaints, except as documented, Reports body ache, Reports chills, Reports fatigue, Reports headache(s) and Reports malaise Eyes Eyes: Reports system reviewed and no additional complaints, except as documented ENT Ears, Nose, Mouth, and Throat: Reports system reviewed and no additional complaints, except as documented, Reports headache(s) and Reports nasal discharge Cardiovascular Cardiovascular: Reports system reviewed and no additional complaints, except as documented and Reports dyspnea Respiratory Respiratory: Reports system reviewed and no additional complaints, except as documented, Reports shortness of breath, Reports chest congestion, Reports cough and Reports dyspnea Gastrointestinal Gastrointestingal: Reports system reviewed and no additional complaints, except as documented, diarrhea, nausea and vomiting Genitourinary Female Genitourinary: Reports system reviewed and no additional complaints, ex cept as documented Musculoskeletal Musculoskeletal: Reports system reviewed and no additional complaints, except as documented Integumentary/Breasts Skin/Breast: Reports system reviewed and no additional complaints, except as documented Neurologic Neurologic: Reports system reviewed and no additional complaints, except as documented and Reports headache(s) Endocrine Endocrine: Reports system reviewed and no additional complaints, except as documented and Reports fatigue Hematologic/Lymphatic Henatologic/Lymphatic: Reports system reviewed and no additional complaints, except as documented Allergic/Immunologic Allergic/Immunologic: Reports system reviewed and no additional complaints, except as documented Physical Exam General General appearance: alert Comment: ill appearing Head Head exam: atraumatic and normocephalic Eye Eye exam: Present normal appearance ENT ENT exam: Present mucous membranes moist Expanded ENT Exam External ear exam: Present normal external inspection Nasal speculum exam: Bilateral: normal Mouth exam: Present normal external inspection Teeth exam: Present normal inspection Throat exam: Present normal inspection Neck Neck exam: Present normal inspection Chest Chest inspection: Present normal inspection and symmetric chest wall rise Respiratory Respiratory exam: Present wheezes and other Expanded Respiratory Exam Location: Left: wheezes and rales, Right: wheezes and rales, Upper: wheezes and Lower: wheezes and rales Cardiovascular Cardiovascular exam: Present regular rate and normal rhythm Abdominal Exam Abdominal exam: Present soft and normal bowel sounds Extremities Exam Extremities exam: Present normal inspection Back Exam Back exam: Present normal inspection Neurological Exam Neurological exam: Present alert and oriented X3 Psychiatric Psychiatric exam: Present normal affect and normal mood Skin Skin exam: Present dry and intact Lymphatic Lymphatic Findings: no adenopathy Medical Decision Making Medical Records Screening: Per USPSTF and CDC recommendations, given the prevalence of disease in our region, it is our hospital?s policy to screen for HIV and viral Hepatitis for all patients aged 18 and over and those with ongoing risk factors. Bartolo Inquiry Pt receiving controlled substance: No Bartolo was queried for this patient: No Vital Signs: 03/12/24 09:31 Temperature 98.3 F Temperature Source Oral Pulse Rate [Left Radial] 81 Respiratory Rate 18 Blood Pressure [Left Arm] 140/70 Blood Pressure Mean [Left Arm] 93 02 Sat by Pulse Oximetry 98
[2024-03-12 10:17] VITALS: BP 140/70; PULSE 81; RESP 18; TEMP 36.8
== END 2024-03-12 10:21 | disposition home or self-care (01) ==
PROVIDERS: Emergency Provider Nurse Practitioner Family
DX: J20.9 Acute bronchitis, unspecified (principal)
CPT/HCPCS: 99213; G0381

== ENCOUNTER 2024-04-08 11:19 | Observation (INO) | payer BC, SELFPAY ==
[2024-04-08] VITALS (10 sets, daily range): BP systolic 108–159; BP diastolic 62–115; PULSE 78–94; RESP 13–25; TEMP 36.8–37.9; O2SAT 92–100; BMI 44.5; BMI 44.6; BMI 43.4
--- OUTSIDE RECORDS SUMMARY | 2024-04-08 11:24 | XMS_ITS | Referral Summary ---
Author Organization [facility] Address [address] [facility] [place] [address] Phone Care Team Providers Care Stopper Setter Name Role Phone Unavailable Primary Care Provider Unavailabl e Social History Tobacco Use Types Packs/Day Years Used Date Smoking Tobacco: Never Assessed Comments Unknown Sex and Gender Information Value Date Recorded Sex Assigned at Not on file Legal Sex Female 11:44 AM EST Gender Identity Not on file Sexual Orientation Not on file Plan of Treatment Not on file Procedures Procedure Name Priority Date/Time Associated Diagnosis Comments MM MAMMO DIGITAL DELFINO SCREEN BILAT Routine 06/09/2020 9:36 AM EST Screening mammogram, encounter for from Last 3 Months or Most Recently Relevant to Health Maintenance Results * MM MAMMO DIGITAL DELFINO SCREEN BILAT (06/09/2020 9:36 AM EST) Anatomical Region Laterality Modality Breast Bilateral Mammography 06/20/2020 11:5 7 AM EST Impressions 06/20/2020 11:57 AM EST Negative ??([id number]-2) ~ RECOMMENDATION: Routine screening mammogram in 1 year. ~ DISCLAIMER * Any patient with a palpable abnormality, unexplained by breast imaging, should be managed on clinical basis by the attending physician. * Breast imaging has a false negative rate of 15%. * The patient was notified by mail of the results of this examination. *The patient's information was entered into a reminder system with a target due date for the next mammogram, in accordance with the [employer] and the Society of Breast Imaging recommendations. Narrative 06/20/2020 11:57 AM EST Procedure:MM MAMMO DIGITAL DELFINO SCREEN BILAT ~ Reason for exam: screening, asymptomatic. Z12.31-Encounter for screening mammogram for malignant neoplasm of kbowxk-QRN-70-CM ~ MM MAMMO DIGITAL DELFINO SCREEN BILAT Bilateral CC and MLO view(s) were taken. Technologist: RT Freya The breast tissue is almost entirely fat. Prior study comparison: Compared with prior studies the most recent being outside study October 2018 No mammographic evidence of malignancy. ~ Procedure Note Sapna Barr MD - 06/20/2020 Procedure:MM MAMMO DIGITAL DELFINO SCREEN BILAT ~ Reason for exam: screening, asymptomatic. Z12.31-Encounter for screening mammogram for malignant neoplasm of alpxky-ZRB-38-CM ~ MM MAMMO DIGITAL DELFINO SCREEN BILAT Bilateral CC and MLO view(s) were taken. Technologist: RT Freya The breast tissue is almost entirely fat. Prior study comparison: Compared with prior studies the most recentbeing outside study October 2018 No mammographic evidence of malignancy. ~ IMPRESSION: Negative (ZYI-Dxaowsyi-7) ~ RECOMMENDATION: Routine screening mammogram in 1 year. ~ DISCLAIMER * Any patient with a palpable abnormality, unexplained by breast imaging, should be managed on clinical basis by the attending physician. * Breast imaging has a false negative rate of 15%. * The patient was notified by mail of the results of this examination. *The patient's information was entered into a reminder system with atarget due date for the next mammogram, in accordance with the [employer] and the Society of Breast Imaging recommendations. Princess Sampson APRN [facility] MAMMO[facility] ORDERABLES Fin al Result from Last 3 Months or Most Recently Relevant to Health Maintenance Insurance [employer]
--- OUTSIDE RECORDS SUMMARY | 2024-04-08 11:24 | XMS_ITS | Encounter Summary ---
Author Organization [place] [address] Care Team Providers Care Hairspring I Inspector Name Role Phone Unavailable Primary Care Provider Unavailabl e Reason for Referral * Mammography (Routine) - Closed Specialty Diagnoses / Procedures Referred By Hudson benitez Referred To Contact Radiology Diagnoses Screening mammogram, encounter for Procedures MM MAMMO DIGITAL DELFINO SCREEN Princess Caraballo, DRAFTING TEACHER [address] [place] [address] Phone: tel: fax: Referral ID Status Reason Start Date Expiration Date Visits Re quested Visits Authorized [id number] Closed 04/16/2020 04/16/2022 1 1 Reason for Visit * Mammography (Routine) - Closed Specialty Diagnoses / Procedures Referred By Hudson benitez Referred To Contact Radiology Diagnoses Screening mammogram, encounter for Procedures MM MAMMO DIGITAL DELFINO SCREEN Princess Caraballo, DRAFTING TEACHER [address] [place] [address] Phone: tel: fax: Referral ID Status Reason Start Date Expiration Date Visits Re quested Visits Authorized [id number] Closed 04/16/2020 04/16/2022 1 1 Encounter Details Date Type Department Care Team (Latest Contact Info) Description 06/09/2020 9:18 AM EST - 06/09/2020 11:59 PM EST Hospital Encounter Mobile Mammography Other Location View online schedule for mobile van location [phone] Princess Sampson, DRAFTING TEACHER [address] [place] [address] Screening mammogram, encounter for Discharge Disposition: Home or Self Care Social History Tobacco Use Types Packs/Day Years Used Date Smoking Tobacco: Never Assessed Comments Unknown Sex and Gender Information Value Date Recorded Sex Assigned at Not on file Legal Sex Female 11:44 AM EST Gender Identity Not on file Sexual Orientation Not on file COVID-19 Exposure Response Date Recorded In the last month, have you been in contact with someone who was confirmed or suspected to have Coronavirus / COVID-19? No / Unsure 06/09/2020 9:16 AM EST documented as of this encounter Discharge Disposition Disposition Code Departure Means Destination Home or Self Care documented in this encounter Plan of Treatment Not on file documented as of this encounter Procedures Procedure Name Priority Date/Time Associated Diagnosis Comments MM MAMMO DIGITAL DELFINO SCREEN BILAT Routine 06/09/2020 9:36 AM EST Screening mammogram, encounter for documented in this encounter Results * MM MAMMO DIGITAL DELFINO SCREEN BILAT (06/09/2020 9:36 AM EST) Anatomical Region Laterality Modality Breast Bilateral Mammography 06/20/2020 11:5 7 AM EST Impressions 06/20/2020 11:57 AM EST Negative ??([id number]) ~ RECOMMENDATION: Routine screening mammogram in 1 [...] the next mammogram, in accordance with the [place] and the Society of Breast Imaging recommendations. Narrative 06/20/2020 11:57 AM EST Procedure:MM MAMMO DIGITAL DELFINO SCREEN BILAT ~ Reason for exam: screening, asymptomatic. Z12.31-Encounter for screening mammogram for malignant neoplasm of xkmgky-NXX-15-CM ~ MM MAMMO DIGITAL DELFINO SCREEN BILAT Bilateral CC and MLO view(s) were taken. Technologist: Kezia Garcia, RT The breast tissue is almost entirely fat. Prior study comparison: Compared with prior studies the most recent being outside study October 2018 No mammographic evidence of malignancy. ~ Procedure Note Sapna Barr MD - 06/20/2020 Procedure:MM MAMMO DIGITAL DELFINO SCREEN BILAT ~ Reason for exam: screening, asymptomatic. Z12.31-Encounter for screening mammogram for malignant neoplasm of vzpsze-XGD-29-CM ~ MM MAMMO DIGITAL DELFINO SCREEN BILAT Bilateral CC and MLO view(s) were taken. Technologist: Kezia Garcia, RT The breast tissue is almost entirely fat. Prior study comparison: Compared with prior studies the most recentbeing outside study October 2018 No mammographic evidence of malignancy. ~ IMPRESSION: Negative (MGC-Eoszpzyn-3) ~ RECOMMENDATION: Routine screening mammogram in 1 [...] the next mammogram, in accordance with the [employer] and the Society of Breast Imaging recommendations. Princess Sampson APRN IMG MAMMOGRAPHY ORDERABLES Fin al Result documented in this encounter Visit Diagnoses Diagnosis Screening mammogram, encounter for documented in this encounter
--- OUTSIDE RECORDS SUMMARY | 2024-04-08 11:24 | XMS_ITS | Clinical Summary ---
Author Organization [facility] Address [address] [facility] [place] [address] Phone Care Team Providers Care Straw Hat Plunger Operator Name Role Phone Unavailable Primary Care Provider Unavailabl e Social History Tobacco Use Types Packs/Day Years Used Date Smoking Tobacco: Never Assessed Comments Unknown Sex and Gender Information Value Date Recorded Sex Assigned at Not on file Legal Sex Female 11:44 AM EST Gender Identity Not on file Sexual Orientation Not on file Obstetrics History Plan of Treatment Health Maintenance Due Date Last Done Comments Annual Wellness Exam 1966 Hepatitis C Screening 1982 DTaP/TDaP/Td (1 - Tdap) 1983 Hepatitis B Vaccine (1 of 3 - 19+ 3-dose series) 1983 Cervical Cancer Screening 1985 Pap Smear 1985 HPV/Pap Cotest 1994 Cologuard 2009 Colon Cancer Screening 2009 Colonoscopy 2009 FIT 2009 Sigmoidoscopy 2009 Virtual Colonography 2009 Zoster (1 of 2) 2014 Breast Cancer Screening 06/09/2022 06/09/2020 COVID-19 Vaccine ( - 2023-2 5 season) 2024 Influenza Vaccine (#1) 2024 Pneumococcal Vaccine 0-64 Aged Out No longer eligible based on patient's age to complete this topic Procedures Procedure Name Priority Date/Time Associated Diagnosis [...] EST Impressions 06/20/2020 11:57 AM EST Negative ??(NDT-Gaxfihyk-8) ~ RECOMMENDATION: Routine screening mammogram in 1 [...] the next mammogram, in accordance with the [employer] and the Society of Breast Imaging recommendations. Narrative 06/20/2020 11:57 AM EST Procedure:MM MAMMO DIGITAL DELFINO SCREEN BILAT ~ Reason for exam: screening, asymptomatic. Z12.31-Encounter for screening mammogram for malignant neoplasm of dyrzrb-XOG-38-CM ~ MM MAMMO DIGITAL DELFINO SCREEN BILAT [...] for screening mammogram for malignant neoplasm of wwvudk-WZY-99-CM ~ MM MAMMO DIGITAL DELFINO SCREEN BILAT Bilateral CC and MLO view(s) were taken. Technologist: RT Freya The breast tissue is almost entirely fat. Prior study comparison: Compared with prior studies the most recentbeing outside study October 2018 No mammographic evidence of malignancy. ~ IMPRESSION: Negative (RBY-Jnmptxki-6) ~ RECOMMENDATION: Routine screening mammogram in 1 [...] the next mammogram, in accordance with the [employer] and the Society of Breast Imaging recommendations. Princess Sampson APRN IM MAMMOGRAPHY ORDERABLES Fin al Result from Last 3 Months or Most Recently Relevant to Health Maintenance Insurance [facility] PPO
--- OUTSIDE RECORDS SUMMARY | 2024-04-08 11:24 | XMS_ITS | Encounter Summary ---
Author Organization [facility] [place] [address] Care Team Providers Care Technical Aid Name Role Phone Unavailable Primary Care Provider Unavailabl e Encounter Details Date Type Department Care Team (Latest Contact Info) Description 06/07/2020 Travel Social History Tobacco Use Types Packs/Day Years [...] have Coronavirus / COVID-19? No / Unsure 06/07/2020 2:24 PM EST documented as of this encounter Plan of Treatment Not on file documented as of this encounter Visit Diagnoses Not on filedocumented in this encounter
--- OUTSIDE RECORDS SUMMARY | 2024-04-08 11:24 | XMS_ITS | Encounter Summary ---
Author Organization [facility] [place] [address] Care Team Providers Care Communication Manager Name Role Phone Unavailable Primary Care Provider Unavailabl e Encounter Details Date Type Department Care Team (Latest Contact Info) Description 06/09/2020 Travel Social History Tobacco Use Types Packs/Day [...] AM EST documented as of this encounter Plan of Treatment Not on file documented as of this encounter Visit Diagnoses Not on filedocumented in this encounter
--- NOTE | 2024-04-08 13:10 | XR_ITS ---
FINAL REPORT CLINICAL HISTORY: COUGH AND CONGESTION X 1 MONTH COMPARISON: 09/10/2021 FINDINGS: PA and lateral views of the chest are obtained. The cardiac and mediastinal silhouettes are within normal limits. There are patchy bibasilar opacities, right greater than left, concerning for bilateral pneumonia. There is no pleural effusion, pneumothorax, or acute osseous abnormality. IMPRESSION: New patchy bilateral opacities consistent with pneumonia. Recommend radiographic follow-up to resolution. Reviewed, Interpreted and Dictated by Karen Calle MD Transcribed by Reyna Mansfield Authenticated and [facility]
--- NOTE | 2024-04-08 13:15 | ED_ITS ---
Discharge Plan Disposition Patient Disposition: Still a Patient Condition: Fair Prescriptions Prescriptions: No Action buspirone 15 MG tablet 15 mg PO BID PRN (Reason: break through anxiety) trazodone 100 mg tablet 100 mg PO DAILY hydroxyzine pamoate 25 mg capsule 25 mg PO DAILY escitalopram oxalate 20 mg tablet 20 mg PO DAILY bupropion HCl 300 mg tablet extended release 24 hr 300 mg PO DAILY Referrals Follow up/Referrals: Audi Almonte MD [Primary Care Provider] - See instructions Clinical Impressions Clinical Impression: Pneumonia Print Language Print Language: Malian Discharge ED Provider: Janak Orr [facility] HPI General Stated complaint: cough, chest congestion Time Seen by Provider: 04/08/24 13:14 History of Present Illness Provider Complaint: She states that she had covid-19 1 month ago. Since then she has never really got better. She states that at this time she is very short of breath with minimal activity. She has been treated twice with antibiotics and steroids (azithromycin and doxycycline). Related Data Home Medications ?Medication ?Instructions ?Recorded ?Confirmed buspirone 15 mg tablet 15 mg PO BID PRN break through 04/24/21 04/08/24 anxiety bupropion HCl 300 mg 24 hr tablet, 300 mg PO DAILY 03/12/24 04/08/24 extended release escitalopram oxalate 20 mg tablet 20 mg PO DAILY 03/12/24 04/08/24 hydroxyzine pamoate 25 mg capsule 25 mg PO DAILY 03/12/24 03/12/24 trazodone 100 mg tablet 100 mg PO DAILY 03/12/24 04/08/24 Allergies Allergy/AdvReac Type Severity Reaction Status Date / Time penicillin G Allergy Severe Anaphylaxis Verified 07/31/22 15:43 nitrofurantoin (From Allergy Unknown Unknown Verified 07/31/22 15:43 Macrobid) allergy reaction aspirin Allergy Verified 07/31/22 15:43 codeine Allergy Verified 07/31/22 15:43 ibuprofen Allergy Verified 07/31/22 15:43 meloxicam (From Mobic) Allergy Verified 07/31/22 15:43 [facility] Disclaimer: The information contained in this section may have been updated after the patient was seen, as this information can be updated by other users. 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 current occupational exposures/hazards: Yes caffeine: Yes ROS Obtained: Yes All systems reviewed & no additional complaints except as documented Constitutional Constitutional: Reports chills and Reports fever(s) Eyes Eyes: Denies eye discharge ENT Ears, Nose, Mouth, and Throat: Reports as per HPI Cardiovascular Cardiovascular: Denies chest pain Respiratory Respiratory: Reports shortness of breath, Reports chest congestion, Reports cough, Denies stridor and Denies wheezing Gastrointestinal Gastrointestingal: Reports nausea; Denies abdominal pain, constipation, cramping, diarrhea or vomiting Musculoskeletal Musculoskeletal: Denies arthralgias Integumentary/Breasts Skin/Breast: Denies rash Neurologic Neurologic: Denies paresthesias Allergic/Immunologic Allergic/Immunologic: Denies wheezing Physical Exam General General appearance: alert and in no apparent distress Head Head exam: atraumatic, normocephalic and normal inspection Eye Eye exam: Present normal appearance, PERRL and EOMI ENT ENT exam: Present normal exam, normal oropharynx, mucous membranes moist, TM's normal bilaterally and normal external ear exam Neck Neck exam: Present normal inspection, full ROM and trachea midline; Absent meningismus or lymphadenopathy Chest Chest inspection: Present normal inspection and symmetric chest wall rise; Absent tenderness Respiratory Respiratory exam: Present normal lung sounds bilaterally; Absent respiratory distress Cardiovascular Cardiovascular exam: Present regular rate and normal rhythm; Absent JVD Abdominal Exam Abdominal exam: Present soft and normal bowel sounds; Absent distention, tenderness or guarding Extremities Exam Extremities exam: Present normal inspection, full ROM and normal capillary refill; Absent calf tenderness Back Exam Back exam: Present normal inspection; Absent tenderness Neurological Exam Neurological exam: Present alert and oriented X3 Psychiatric Psychiatric exam: Present normal affect and normal mood Skin Skin exam: Present warm, dry, intact and normal color Lymphatic Lymphatic Findings: no adenopathy Medical Decision Making Medical Records Medical records reviewed: No I reviewed the patient's medical records. Screening: Per USPSTF and CDC recommendations, given the prevalence of disease in our region, it is our hospital?s policy to screen for HIV and viral Hepatitis for all patients aged 18 and over and those with ongoing risk factors. Bartolo Inquiry Pt receiving controlled substance: No Orders (Tests/Meds): ORDERS Category Date Time Status CXR 2 view (NOT portable) [XR chest 2V] Stat Exams 04/08/24 13:10 Ordered Medical Decision Narrative: She was transferred to the ER due to being treated twice with outpatient antibiotics with no marked improvement.
--- NOTE | 2024-04-08 13:54 | ECG_ITS ---
APPROVED REPORT Exam: Resting ECG HR:87 bpm ECG Measurements Heart Rate 87 AXES DE 139 P 67 QRSd 147 QRS 25 QT 407 T 44 QTc 452 Conclusion SINUS RHYTHM POSSIBLE RIGHT ATRIAL ENLARGEMENT [0.25mV P-WAVE] POSSIBLE LEFT ATRIAL ENLARGEMENT [-0.1mV P-WAVE IN V1/V2] RIGHT BUNDLE BRANCH BLOCK [120+ ms QRS DURATION, UPRIGHT V1, 40+ ms S IN I/aVL/V4/V5/V6] ABNORMAL ECG Electronically signed by : CONI ALLRED, 04/09/2024 17:27:39
--- NOTE | 2024-04-08 14:03 | ED_ITS ---
<Statement entered by Janak Orr DO - 04/10/24 12:49> I discussed this patient in detail with the PA. Agree with plan and documented encounter. Patient was seen by PA only. Discharge Plan Disposition Patient Disposition: Admitted Condition: Fair Clinical Impressions Clinical Impression: Pneumonia Discharge ED Provider: Janak Orr HPI General Chief Complaint: Shortness of Breath/Dyspnea Stated Complaint: cough, chest congestion Time Seen by Provider: 04/08/24 13:14 Mode of Arrival: Wheelchair Source of Information: Patient Limitations: No Limitations Description of Symptoms (Recalled from ER Triage Doc. by RN): Patient reports increased shortness of breath and chest pain. States that she has been seen four times for this and is just continuing to get worse. States she was diagnosed with pneumonia and covid approx 1 month ago. History of Present Illness HPI narrative: Patient presents for evaluation of a persistent cough. Patient was diagnosed with COVID 4 weeks ago and at the time of diagnosis patient was placed on doxycycline and prednisone on the day of diagnosis. She unfortunately could not take the doxycycline because she has gastric bypass patient and was causing her gastric distress and she followed up at [facility] as urgent care where she again was given another antibiotic. At neither visit was patient worked up with an x- ray or labs. Patient has had persistent percussive dry nonproductive cough and it is causing her chest pain she is coughing so much now. She denies cardiac chest pain fever chills hemoptysis hematochezia melena does have some nausea with prolonged coughing spells but no vomiting or diarrhea. She has no pulmonary history nor any cardiac history and is not a diabetic. she does however have a past medical history of morbid obesity with a BMI of 44, anxiety and depression Related Data Home Medications ?Medication ?Instructions ?Recorded ?Confirmed buspirone 15 mg tablet 15 mg PO BID PRN break through 04/24/21 04/08/24 anxiety bupropion HCl 300 mg 24 hr tablet, 300 mg PO DAILY 03/12/24 04/08/24 extended release escitalopram oxalate 20 mg tablet 20 mg PO DAILY 03/12/24 04/08/24 hydroxyzine pamoate 25 mg capsule 25 mg PO DAILY 03/12/24 04/08/24 trazodone 100 mg tablet 100 mg PO DAILY 03/12/24 04/08/24 Allergies Allergy/AdvReac Type Severity Reaction Status Date / Time penicillin G Allergy Severe Anaphylaxis Verified 07/31/22 15:43 nitrofurantoin (From Allergy Unknown Unknown Verified 07/31/22 15:43 Macrobid) allergy reaction aspirin Allergy Unknown Verified 04/08/24 14:02 allergy reaction ciprofloxacin (From Cipro) Allergy Unknown Verified 04/08/24 14:02 allergy reaction codeine Allergy Unknown Verified 04/08/24 14:02 allergy reaction ibuprofen Allergy Unknown Verified 04/08/24 14:02 allergy reaction meloxicam (From Mobic) Allergy Unknown Verified 04/08/24 14:02 allergy reaction PFSH PFS Disclaimer: The information contained in this section may have been updated after the patient was seen, as this information can be updated by other users. 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 current occupational exposures/hazards: Yes caffeine: Yes Other Medical History Have you received the Flu Vaccine for this season: No Have you received the Pneumonia Vaccine: Yes ROS Obtained: Yes Systems reviewed as appropriate & no additional complaints except as documented Physical Exam General General appearance: alert and in no apparent distress Respiratory Respiratory exam: Present normal lung sounds bilaterally Cardiovascular Cardiovascular exam: Present regular rate Neurological Exam Neurological exam: Present alert and oriented X3 HEART Score HEART Score HEART Score assessment performed?: Yes History (anamnesis): Slightly suspicious ECG: Non-specific disturbance Age: 45-65 years Risk factors: 1-2 risk factors Troponin: </= normal limit HEART Score: 3 Critical Care Critical Care Time Critical Care Time: No Medical Decision Making Medical Records Medical records reviewed: Yes I reviewed the patient's medical records. Bartolo Inquiry Pt receiving controlled substance: No Vital Signs Vital Signs: 04/08/24 13:16 04/08/24 13:56 04/08/24 14:01 Temperature 98.7 F 98.2 F Temperature Source Oral Oral Pulse Rate 85 Pulse Rate [Left Radial] 78 93 H Respiratory Rate 24 18 13 Blood Pressure 144/115 H Blood Pressure [Left Arm] 150/86 H 159/74 H Blood Pressure Mean 123 Blood Pressure Mean [Left Arm] 107 102 Blood Pressure Source [Left Arm] Automatic Cuff Blood Pressure Position [Left Arm] Sitting 02 Sat by Pulse Oximetry 96 94 L 100 Oxygen Delivery Method Room Air 04/08/24 14:16 04/08/24 14:46 04/08/24 15:01 Temperature Temperature Source Pulse Rate 85 94 H 86 Pulse Rate [Left Radial] Respiratory Rate 25 H 24 19 Blood Pressure 147/70 H 143/69 H 148/63 H Blood Pressure [Left Arm] Blood Pressure Mean 95 89 91 Blood Pressure Mean [Left Arm] Blood Pressure Source [Left Arm] Blood Pressure Position [Left Arm] 02 Sat by Pulse Oximetry 100 92 L 93 L Oxygen Delivery Method 04/08/24 16:26 Temperature 98.2 F Temperature Source Pulse Rate 86 Pulse Rate [Left Radial] Respiratory Rate 22 Blood Pressure 135/97 H Blood Pressure [Left Arm] Blood Pressure Mean Blood Pressure Mean [Left Arm] Blood Pressure Source [Left Arm] Blood Pressure Position [Left Arm] 02 Sat by Pulse Oximetry Oxygen Delivery Method Room Air Lab Data Lab results reviewed: Yes I reviewed the patient's lab results. Labs: Lab Results 04/08/24 13:58: WBC 11.7 H, RBC 4.23, Hgb 12.7, Hct 38.8, MCV 91.9, MCH 30.0, MCHC 32.7, RDW 15.4, Plt Count 393, MPV 7.1 L, Neut % (Auto) 81.0 H, Lymph % (Auto) 12.4, Rich % (Auto) 5.7, Eos % (Auto) 0.6, Baso % (Auto) 0.4, Neut # (Auto) 9.5 H, Lymph # (Auto) 1.5, Rich # (Auto) 0.7, Eos # (Auto) 0.1, Baso # (Auto) 0.0, PT 10.8, INR 0.96, Sodium 146 H, Potassium 3.9, Chloride 109 H, Carbon Dioxide 27, Anion Gap 13.9, BUN 18 H, Creatinine 0.60, Estimated Creat Clear 98, Estimated GFR 102, Est GFR ( Amer) 124, Glucose 127 H, Calcium 9.4, Magnesium 2.4 H, Total Bilirubin 1.0, AST 35, ALT 22, Alkaline Phosphatase 151 H, Total Creatine Kinase 146 H, Troponin I < 0.01, Total Protein 8.0, Albumin 4.0, Globulin 4.0 H, Albumin/Globulin Ratio 1.0 L, HIV 1&2 Antibody Rapid Nonreactive 04/08/24 14:07: VBG pH 7.32, VBG pCO2 52.1 H, VBG pO2 20.0 L, VBG HCO3 26.0, VBG Total CO2 27.6 H, VBG O2 Saturation 26.9 L, VBG Base Excess -0.2, VBG Lactic Acid 4.6 H 04/08/24 14:15: Chlamy pneumoniae PCR Not detected, Adenovirus (PCR) Not detected, B. pertussis DNA (PCR) Not detected, Coronavirus OC43 (PCR) Not detected, Coronavirus HKU1 (PCR) Not detected, Coronavirus 229E (PCR) Not detected, SARS-CoV-2 (PCR) Not detected, Coronavirus NL63 (PCR) Not detected, Human Metapneumovir PCR Not detected, Influenza A (H1) PCR Not detected, Influ A (H1N1/09) PCR Not detected, Influenza A (H3) PCR Not detected, Influenza Type A (PCR) Not detected, Influenza Type B (PCR) Not detected, M. pneumoniae (PCR) Not detected, Parainfluenza 1 (PCR) Not detected, Parainfluenza 2 (PCR) Not detected, Parainfluenza 3 (PCR) Not detected, Parainfluenza 4 (PCR) Not detected, RSV (PCR) Not detected, Entero/Rhino (PCR) Not detected 04/08/24 13:58 04/08/24 13:58 Response Orders (Tests/Meds): ED MEDICATIONS Generic Name Dose Route Start Last Admin Trade Name Freq PRN Reason Stop Dose Admin Acetaminophen 650 mg 04/08/24 16:00 Acetaminophen 325mg Tab PO 05/08/24 15:59 Q4HP PRN Fever or Mild Pain (1-3) Belladonna Alkaloids 60 ml 04/08/24 19:00 Belladonna Alkaloids 60 Ml Ml PO 04/08/24 19:01 ONCE ONE Enoxaparin Sodium 40 mg 04/09/24 09:00 Enoxaparin 40mg/0.4ml Syringe SUBCUT 05/09/24 08:59 DAILY [facility] Azithromycin 500 mg/ Sodium 250 mls @ 250 mls/hr 04/08/24 15:41 04/08/24 17:58 Chloride IV 04/08/24 15:42 250 mls/hr ONCE ONE Administration Cefepime HCl 2 gm/ Sodium 100 mls @ 200 mls/hr 04/08/24 15:41 04/08/24 15:58 Chloride IV 04/08/24 16:10 200 mls/hr ONCE ONE Administration Miscellaneous 1 each 04/08/24 19:30 Vancomycin Consult Request NOTAPPLIC 05/08/24 19:29 CONSULT PHARMACY [facility] Ondansetron HCl 4 mg 04/08/24 16:00 Ondansetron 4mg/2ml Vial IV 05/08/24 15:59 Q8HP PRN Nausea Sodium Chloride 3 ml 04/08/24 15:38 Sodium Chloride 3% 15ml Neb 05/08/24 15:37 ONCE PRN INDUCE SPUTUM COLLECTION Sodium Chloride 3 ml 04/08/24 16:07 Sodium Chloride 3% 15ml Neb 05/08/24 16:06 ONCE PRN INDUCE SPUTUM COLLECTION Tetracycl/Hydrocort/Nystatin/Diphen 15 ml 04/08/24 21:00 Magic Mouthwash 300ml Bottle PO 05/08/24 20:59 BID [facility] Discontinued Medications Generic Name Dose Route Start Last Admin Trade Name Freq PRN Reason Stop Dose Admin Diphenhydramine HCl 50 mg 04/08/24 15:47 04/08/24 15:56 Diphenhydramine 50mg/Ml Vial IV 04/08/24 15:48 Not Given ONCE ONE Sodium Chloride 1,000 mls @ 999 mls/hr 04/08/24 14:04 04/08/24 14:29 Sod Chlor 0.9% 1000ml Bag IV 04/08/24 15:04 999 mls/hr .Q1H1M ONE Administration Iopamidol 70 ml 04/08/24 14:29 04/08/24 14:31 Iopamidol-370 (76%);100ml Bottle IV 04/08/24 14:30 70 ml ONCE ONE Administration Ketorolac Tromethamine 15 mg 04/08/24 14:04 04/08/24 14:29 Ketorolac 30mg/Ml Vial IV 04/08/24 14:05 15 mg ONCE ONE Administration Methylprednisolone Sodium Succinate 125 mg 04/08/24 15:47 04/08/24 15:56 Methylprednisolone Sod Succ 125mg Vial IV 04/08/24 15:48 Not Given ONCE ONE Ondansetron HCl 4 mg 04/08/24 14:10 04/08/24 14:29 Ondansetron 4mg/2ml Vial IV 04/08/24 14:11 4 mg ONCE ONE Administration Sodium Chloride 50 ml 04/08/24 14:29 04/08/24 14:31 0.9 % Sodium Chloride 50 Ml Vial IV 04/08/24 14:30 50 ml ONCE ONE Administration Sodium Chloride 10 ml 04/08/24 14:29 04/08/24 14:31 Sodium Chloride 0.9% 10ml Syr (Rad Only) IV 04/08/24 14:30 10 ml ONCE ONE Administration ORDERS Category Date Time Status CT angio chest PE protocol Stat Cat Scan 04/08/24 14:16 Completed CXR 2 view (NOT portable) [XR chest 2V] Stat Exams 04/08/24 13:10 Completed CK [Creatine Kinase] Stat Lab 04/08/24 13:58 Completed Complete Blood Count Auto Diff AMLAB Lab 04/09/24 06:00 Ordered Complete Blood Count Auto Diff AMLAB Lab 04/10/24 06:00 Ordered Complete Blood Count Auto Diff AMLAB Lab 04/11/24 06:00 Ordered Complete Blood Count Auto Diff AMLAB Lab 04/12/24 06:00 Ordered Complete Blood Count Auto Diff AMLAB Lab 04/13/24 06:00 Ordered Complete Blood Count Auto Diff Stat Lab 04/08/24 13:58 Completed Comprehensive Metabolic Panel AMLAB Lab 04/09/24 06:00 Ordered Comprehensive Metabolic Panel AMLAB Lab 04/10/24 06:00 Ordered Comprehensive Metabolic Panel AMLAB Lab 04/11/24 06:00 Ordered Comprehensive Metabolic Panel AMLAB Lab 04/12/24 06:00 Ordered Comprehensive Metabolic Panel AMLAB Lab 04/13/24 06:00 Ordered Comprehensive Metabolic Panel Stat Lab 04/08/24 13:58 Completed Full Resp Panel w/COVID ([facility]) Routine Lab 04/08/24 14:15 Completed HIV (1&2) Antibody Rapid Stat Lab 04/08/24 13:58 Completed Hep C Ab with Reflex to RNA Stat Lab 04/08/24 13:58 Received INR [Prothrombin Time INR] Stat Lab 04/08/24 13:58 Completed Magnesium Stat Lab 04/08/24 13:58 Completed Trop I [Troponin I] Stat Lab 04/08/24 13:58 Completed Troponin I Q3H Lab 04/08/24 16:50 Completed Troponin I Q3H Lab 04/08/24 20:15 Ordered Blood Culture Stat Micro 04/08/24 15:58 Received Sputum Culture & Gram Stain Stat Micro 04/08/24 19:00 Received VBG [Venous Blood Gas] Stat RT 04/08/24 14:07 Completed MDM Narrative Medical Decision Narrative: In summary patient is a 58-year-old female who presents to the emergency department for evaluation of 4 weeks of cough and cough and is chest pain. Patient is hemodynamically stable upon arrival, afebrile. Physical exam is remarkable for a dry hacking run-on cough but breath sounds are clear and equal bilaterally to the bases without adventitious sounds. Patient is normal sinus rhythm on the bedside monitor. She has no increased work of breathing or accessory muscle use. Heart sounds are normal. Patient has no dependent edema noted.. Differential diagnosis includes post COVID-pneumonia versus bacterial pneumonia versus other viral pneumonia versus CHF versus pulmonary edema etc. Initial workup will be conducted with hematologic labs full respiratory swab CTA of the chest. Initial interventions include Tylenol Decadron DuoNeb Toradol. Initial workup reviewed by me shows her white count 11.7 with an absolute neutrophil count of 9.5 INR 0.96 VBG shows a pH of 7.32 with a pCO2 of 52.1 with a venous blood gas lactic acid of 4.6 CMP significant for sodium 146 potassium 3.9 chloride of 109 CO2 of 27 and a gap of 13.9 BUN of 18 but a creatinine of 0.6 with a GFR of the 100 to glucose of 127 magnesium of 2.4 alk phos of 151 remainder of her CMP is within normal limits he has a CK of 146 negative troponin. My informal interpretation of her CTA PE protocol shows no evidence of thrombus but does show multifocal groundglass opacities throughout the lungs primarily at the apices. Given this had interactive discussion with hospital medicine regarding patient management and patient will be admitted for further evaluation and care
[2024-04-08 14:14] LABS: Basophils % 0.4 % (0.1-2.0); Eosinophils # 0.1 K/mm3 (0.0-0.4); Eosinophils % 0.6 % (0.1-12.0); Hematocrit 38.8 % (37.0-47.0); Hemoglobin 12.7 g/dL (12.2-16.2); Lymphocytes # 1.5 K/mm3 (0.7-4.5); Lymphocytes % 12.4 % (10-50); Mean Corpuscular HGB Conc 32.7 g/dL (31.8-35.4); Mean Corpuscular Volume 91.9 fl (81-99); Mean Platelet Volume 7.1 fl (7.4-10.4); Monocytes # 0.7 K/mm3 (0.1-1.0); Monocytes % 5.7 % (1.7-9.3); Neutrophils # 9.5 K/mm3 (1.8-7.8); Platelet Count 393 K/mm3 (142-424); Red Blood Count 4.23 M/mm3 (4.20-5.40); Red Cell Distribution Width 15.4 % (11.5-17.5); White Blood Count 11.7 K/mm3 (4.8-10.8)
[2024-04-08 14:15] LABS: Chloride 109 mmol/L (98-107); Sodium 146 mmol/L (136-145)
[2024-04-08 14:16] LABS: Potassium 3.9 mmoL/L (3.5-5.1)
--- NOTE | 2024-04-08 14:16 | CT_ITS ---
FINAL REPORT TECHNIQUE: Axial imaging of the chest is obtained after the administration of contrast. 3-D MIP reformatted images were also obtained and reviewed per PE protocol. CLINICAL HISTORY: COVID + 4 WK ago persistent cough and CP FINDINGS: The pulmonary arteries are well filled. There is no evidence of pulmonary embolus. There is no aortic dissection. Heart size is normal. There is no axillary or mediastinal adenopathy. There are mildly enlarged right hilar nodes. There are patchy groundglass opacities in the lungs, right greater than left consistent with pneumonia. There is no pleural or pericardial effusion. Limited evaluation of the upper abdomen is without acute abnormality. No acute osseous abnormality. IMPRESSION: No evidence of pulmonary embolism or aortic dissection. Bilateral pneumonia, right greater than left, favor viral etiology. Reviewed, Interpreted and Dictated by Karen Calle MD Transcribed by Belkys Mendoza Authenticated and [facility]
[2024-04-08 14:18] LABS: Alanine Aminotransferase 22 U/L (12-78); Anion Gap 13.9 mEq/L (5-15); Aspartate Amino Transferase 35 U/L (14-36); Blood Urea Nitrogen 18 mg/dl (7-17); Carbon Dioxide 27 mmol/L (22.0-30.0); Creatinine Clearance Estimated 98 mL/min (50-200); Estimated Glomerular Filt Rate 102 ml/min (>60); GFR (African American) 124 ML/MIN (>60)
[2024-04-08 14:19] LABS: Alkaline Phosphatase 151 U/L (38-126); Calcium 9.4 mg/dl (8.4-10.2); Glucose 127 mg/dl (74-100)
[2024-04-08 14:21] LABS: VBG Base Excess -0.2 mmol/L (-2.4-2.3); VBG Oxygen Saturation 26.9 % (50-70); VBG PH 7.32 mmol/L (7.31-7.41); VBG Total CO2 27.6 mmol/L (23-27)
[2024-04-08 14:22] LABS: Adenovirus,PCR Not Detected (NotDetected); Bordetella Pertussis Not Detected (NotDetected); Chlamydophila Pneumoniae, PCR Not Detected (NotDetected); Coronavirus 19, PCR Not Detected (NotDetected); Coronavirus 229E Not Detected (NotDetected); Coronavirus NL63 Not Detected (NotDetected); Coronavirus OC43 Not Detected (NotDetected); Coronovirus HKU1,PCR Not Detected (NotDetected); Human Metapneumovirus Not Detected (NotDetected); Influenza A, PCR Not Detected (NotDetected); Influenza AH1, 2009 Not Detected (NotDetected); Influenza AH1, PCR Not Detected (NotDetected); Influenza AH3,PCR Not Detected (NotDetected); Influenza B, PCR Not Detected (NotDetected); Mycoplasma Pneumoniae, PCR Not Detected (NotDetected); Parainfluenza 1, PCR Not Detected (NotDetected); Parainfluenza 2, PCR Not Detected (NotDetected); Parainfluenza 3, PCR Not Detected (NotDetected); Parainfluenza 4, PCR Not Detected (NotDetected); Respiratory Syncytial Virus Not Detected (NotDetected); Rhinovirus/Enterovirus Not Detected (NotDetected)
[2024-04-08 14:24] LABS: Lactate Venous 4.6 mmol/L (0.4-2.0); VBG PCO2 52.1 mmol/L (35-51)
[2024-04-08 14:29] LABS: INR 0.96 (0.9-1.1); Prothrombin Time 10.8 seconds (10.1-12.5)
[2024-04-08] MEDS: 0.9 % SODIUM CHLORIDE 1000ML 1,000 ML 999 ML IV (14:29)
[2024-04-08] MEDS: ONDANSETRON 4MG/2ML VIAL 4 MG IV (14:29)
[2024-04-08] MEDS: KETOROLAC 30MG/ML VIAL 15 MG IV (14:29)
--- NOTE | 2024-04-08 14:29 | PC.NURSE ---
VBG results given to
[2024-04-08 14:31] LABS: Troponin I < 0.01 ng/ml (0.00-0.034)
[2024-04-08] MEDS: SODIUM CHLORIDE 0.9% 10ML SYR (RAD ONLY) 10 ML IV (14:31)
[2024-04-08] MEDS: IOPAMIDOL-370 (76%);100ML BOTTLE 70 ML IV (14:31)
[2024-04-08] MEDS: 0.9 % SODIUM CHLORIDE 50 ML VIAL IV (14:31)
[2024-04-08 14:43] LABS: Creatine Kinase 146 U/L (30-135); Magnesium 2.4 mg/dl (1.6-2.3)
[2024-04-08 15:30] LABS: HIV (1&2) Antibody Rapid NONREACTIVE (NONREACTIVE)
[2024-04-08] MEDS: CEFEPIME HCL 2 GM in 0.9 % SODIUM CHLORIDE 100 ML IV (15:58)
--- OUTSIDE RECORDS SUMMARY | 2024-04-08 16:11 | XMS_ITS | Encounter Summary ---
Author Organization [place] [address] Care Team Providers Care Blanker Operator Name Role Phone Unavailable Primary Care Provider Unavailabl e Reason for Referral * Mammography (Routine) - Closed Specialty Diagnoses / Procedures Referred By Hudson benitez Referred To Contact Radiology Diagnoses Screening mammogram, encounter for Procedures MM MAMMO DIGITAL DELFINO SCREEN Princess Caraballo, TSA SCREENER [address] [place] [address] Phone: tel: fax: Referral ID Status Reason Start Date Expiration Date Visits Re quested Visits Authorized [id number] Closed 04/16/2020 04/16/2022 1 1 Reason for Visit * Mammography (Routine) - Closed Specialty Diagnoses / Procedures Referred By Hudson benitez Referred To Contact Radiology Diagnoses Screening mammogram, encounter for Procedures MM MAMMO DIGITAL DELFINO SCREEN Princess Caraballo, TSA SCREENER [address] [place] [address] Phone: tel: fax: Referral ID Status Reason Start Date Expiration Date Visits Re quested Visits Authorized [id number] Closed 04/16/2020 04/16/2022 1 1 Encounter Details Date Type Department Care Team (Latest Contact Info) Description 06/09/2020 9:18 AM EST - 06/09/2020 11:59 PM EST Hospital Encounter Mobile Mammography Other Location View online schedule for mobile van location [phone] Princess Sampson, TSA SCREENER [address] [place] [address] Screening mammogram, encounter for Discharge Disposition: Home [...] EST Impressions 06/20/2020 11:57 AM EST Negative ??([id number]) ~ RECOMMENDATION: Routine screening mammogram in 1 [...] the next mammogram, in accordance with the [employer] and the Society of Breast Imaging recommendations. Narrative 06/20/2020 11:57 AM EST Procedure:MM MAMMO DIGITAL DELFINO SCREEN BILAT ~ Reason for exam: screening, asymptomatic. Z12.31-Encounter for screening mammogram for malignant neoplasm of [id number] ~ MM MAMMO DIGITAL DELFINO SCREEN BILAT [...] for screening mammogram for malignant neoplasm of [id number] ~ MM MAMMO DIGITAL DELFINO SCREEN BILAT Bilateral CC and MLO view(s) were taken. Technologist: Kezia Garcia, RT The breast tissue is almost entirely fat. Prior study comparison: Compared with prior studies the most recentbeing outside study October 2018 No mammographic evidence of malignancy. ~ IMPRESSION: Negative ([id number]) ~ RECOMMENDATION: Routine screening mammogram in 1 [...] the next mammogram, in accordance with the [employer] and the Society of Breast Imaging recommendations. Princess Sampson APRN IMG MAMMOGRAPHY ORDERABLES Fin al Result documented in this encounter Visit Diagnoses Diagnosis Screening mammogram, encounter for documented in this encounter
--- OUTSIDE RECORDS SUMMARY | 2024-04-08 16:11 | XMS_ITS | Encounter Summary ---
Author Organization [facility] [place] [address] Care Team Providers Care Maintenance Chief Name Role Phone Unavailable Primary Care Provider [...]
--- OUTSIDE RECORDS SUMMARY | 2024-04-08 16:11 | XMS_ITS | Clinical Summary ---
Author Organization Vasiliy GREENJohnathan OD Address [address] [facility] [place] [address] Phone Care Team Providers Care Jack Frame Tender Name Role Phone Unavailable Primary Care Provider [...] EST Impressions 06/20/2020 11:57 AM EST Negative ??([id number]) ~ RECOMMENDATION: Routine screening mammogram in 1 [...] the next mammogram, in accordance with the [employer] and the Society of Breast Imaging recommendations. Narrative 06/20/2020 11:57 AM EST Procedure:MM MAMMO DIGITAL DELFINO SCREEN BILAT ~ Reason for exam: screening, asymptomatic. Z12.31-Encounter for screening mammogram for malignant neoplasm of [id number] ~ MM MAMMO DIGITAL DELFINO SCREEN BILAT [...] for screening mammogram for malignant neoplasm of [id number] ~ MM MAMMO DIGITAL DELFINO SCREEN BILAT Bilateral CC and MLO view(s) were taken. Technologist: RT Freya The breast tissue is almost entirely fat. Prior study comparison: Compared with prior studies the most recentbeing outside study October 2018 No mammographic evidence of malignancy. ~ IMPRESSION: Negative ([id number]) ~ RECOMMENDATION: Routine screening mammogram in 1 [...] the next mammogram, in accordance with the [employer] and the Society of Breast Imaging recommendations. Princess Sampson APRN IM MAMMOGRAPHY ORDERABLES Fin al Result from Last 3 Months or Most Recently Relevant to Health Maintenance Insurance [facility] PPO
--- OUTSIDE RECORDS SUMMARY | 2024-04-08 16:11 | XMS_ITS | Referral Summary ---
Author Organization [facility] Address [facility] [place] [address] Phone Care Team Providers Care Cork Mixer Name Role Phone Unavailable Primary Care Provider [...] EST Impressions 06/20/2020 11:57 AM EST Negative ??([id number]) ~ RECOMMENDATION: Routine screening mammogram in 1 [...] the next mammogram, in accordance with the [employer] and the Society of Breast Imaging recommendations. Narrative 06/20/2020 11:57 AM EST Procedure:MM MAMMO DIGITAL DELFINO SCREEN BILAT ~ Reason for exam: screening, asymptomatic. Z12.31-Encounter for screening mammogram for malignant neoplasm of [id number] ~ MM MAMMO DIGITAL DELFINO SCREEN BILAT [...] for screening mammogram for malignant neoplasm of [id number] ~ MM MAMMO DIGITAL DELFINO SCREEN BILAT Bilateral CC and MLO view(s) were taken. Technologist: RT Freya The breast tissue is almost entirely fat. Prior study comparison: Compared with prior studies the most recentbeing outside study October 2018 No mammographic evidence of malignancy. ~ IMPRESSION: Negative ([id number]) ~ RECOMMENDATION: Routine screening mammogram in 1 [...] the next mammogram, in accordance with the [employer] and the Society of Breast Imaging recommendations. Princess Sampson APRN [facility] MAMMO[facility] ORDERABLES Fin al Result from Last 3 Months or Most Recently Relevant to Health Maintenance Insurance [employer]
--- OUTSIDE RECORDS SUMMARY | 2024-04-08 16:11 | XMS_ITS | Encounter Summary ---
Author Organization [facility] [place] [address] Care Team Providers Care Electronic Semiconductor Processor Name Role Phone Unavailable Primary Care Provider [...]
--- NOTE | 2024-04-08 16:25 | PC.NURSE ---
called report to babatunde augustine on 2nd floor
--- NOTE | 2024-04-08 16:41 | PC.NURSE ---
pt arrived to unit by wheelchair from ed.
[2024-04-08 17:22] LABS: Troponin I < 0.01 ng/ml (0.00-0.034)
[2024-04-08] MEDS: AZITHROMYCIN 500 MG in 0.9 % SODIUM CHLORIDE 250 ML 250 MG IV (17:58)
[2024-04-08 18:24] LABS: Reflex Lactic Add Lactic Reflex
--- NOTE | 2024-04-08 18:45 | P.HP_ITS ---
History of Present Illness *Admission Date: 04/08/24 *Reason for visit:: Pneumonia, significant weakness *History of present illness: Caorl Alejo is a 58-year-old female with a medical history significant for anxiety/depression, and recent COVID-19 infection about 4 weeks ago presents w ith progressive profound weakness and persistent cough. She states she was diagnosed with COVID-19 about 4 weeks ago, and has had persistent cough since then. She has undergone 2 rounds of antibiotics including doxycycline, and Medrol pack 4 weeks ago. Neither have alleviated symptoms. She endorses shortness of breath with exertion, nonproductive cough, fever/chills, profound weakness, decreased oral intake, in addition to profuse watery diarrhea over the past week. Workup in the ED significant for WBC 11.7, sodium 146. CTA chest suggestive of bilateral pneumonia, right greater than left. Patient is saturating well on room air. Case discussed with ED provider and decision was made to admit patient for profound weakness, cough in the setting of community- acquired pneumonia and failed outpatient treatment. [facility] Disclaimer: The information contained in this section may have been updated after the patient was seen, as this information can be updated by other users. 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 current occupational exposures/hazards: Yes caffeine: Yes Other Medical History Have you received the Flu Vaccine for this season: No Have you received the Pneumonia Vaccine: No Review of Systems *Neurologic Neurologic: Denies paresthesias Meds Home Medications and Allergies Home Medications ?Medication ?Instructions ?Recorded ?Confirmed ?Type buspirone 15 mg tablet 15 mg PO BID PRN break through 04/24/21 04/08/24 History anxiety bupropion HCl 300 mg 24 hr tablet, 300 mg PO DAILY 03/12/24 04/08/24 History extended release escitalopram oxalate 20 mg tablet 20 mg PO DAILY 03/12/24 04/08/24 History hydroxyzine pamoate 25 mg capsule 25 mg PO DAILY 03/12/24 04/08/24 History trazodone 100 mg tablet 100 mg PO DAILY 03/12/24 04/08/24 History New Prescriptions to Start Prescriptions: Allergies Allergy/AdvReac Type Severity Reaction Status Date / Time penicillin G Allergy Severe Anaphylaxis Verified 07/31/22 15:43 nitrofurantoin (From Allergy Unknown Unknown Verified 07/31/22 15:43 Macrobid) allergy reaction aspirin Allergy Unknown Verified 04/08/24 14:02 allergy reaction ciprofloxacin (From Cipro) Allergy Unknown Verified 04/08/24 14:02 allergy reaction codeine Allergy Unknown Verified 04/08/24 14:02 allergy reaction ibuprofen Allergy Unknown Verified 04/08/24 14:02 allergy reaction meloxicam (From Mobic) Allergy Unknown Verified 04/08/24 14:02 allergy reaction Exam Data for Last 24 hours Vital signs and Labs for Last 24 Hours: Temp Pulse Resp BP Pulse Ox O2 Del Method 98.8 F 86 21 108/91 L 93 L Nasal Cannula 04/08/24 17:57 04/08/24 17:57 04/08/24 17:57 04/08/24 17:57 04/08/24 17:57 04/08/24 18:41 Laboratory Results - last 24 hr 04/08/24 13:58: WBC 11.7 H, RBC 4.23, Hgb 12.7, Hct 38.8, MCV 91.9, MCH 30.0, MCHC 32.7, RDW 15.4, Plt Count 393, MPV 7.1 L, Neut % (Auto) 81.0 H, Lymph % (Auto) 12.4, Loup % (Auto) 5.7, Eos % (Auto) 0.6, Baso % (Auto) 0.4, Neut # (Auto) 9.5 H, Lymph # (Auto) 1.5, Loup # (Auto) 0.7, Eos # (Auto) 0.1, Baso # (Auto) 0.0, PT 10.8, INR 0.96, Sodium 146 H, Potassium 3.9, Chloride 109 H, Carbon Dioxide 27, Anion Gap 13.9, BUN 18 H, Creatinine 0.60, Estimated Creat Clear 98, Estimated GFR 102, Est GFR ( Amer) 124, Glucose 127 H, Calcium 9.4, Magnesium 2.4 H, Total Bilirubin 1.0, AST 35, ALT 22, Alkaline Phosphatase 151 H, Total Creatine Kinase 146 H, Troponin I < 0.01, Total Protein 8.0, Albumin 4.0, Globulin 4.0 H, Albumin/Globulin Ratio 1.0 L, HIV 1&2 Antibody Rapid Nonreactive 04/08/24 14:07: VBG pH 7.32, VBG pCO2 52.1 H, VBG pO2 20.0 L, VBG HCO3 26.0, VBG Total CO2 27.6 H, VBG O2 Saturation 26.9 L, VBG Base Excess -0.2, VBG Lactic Acid 4.6 H 04/08/24 14:15: Chlamy pneumoniae PCR Not detected, Adenovirus (PCR) Not detected, B. pertussis DNA (PCR) Not detected, Coronavirus OC43 (PCR) Not detected, Coronavirus HKU1 (PCR) Not detected, Coronavirus 229E (PCR) Not detected, SARS-CoV-2 (PCR) Not detected, Coronavirus NL63 (PCR) Not detected, Human Metapneumovir PCR Not detected, Influenza A (H1) PCR Not detected, Influ A (H1N1/09) PCR Not detected, Influenza A (H3) PCR Not detected, Influenza Type A (PCR) Not detected, Influenza Type B (PCR) Not detected, M. pneumoniae (PCR) Not detected, Parainfluenza 1 (PCR) Not detected, Parainfluenza 2 (PCR) Not detected, Parainfluenza 3 (PCR) Not detected, Parainfluenza 4 (PCR) Not detected, RSV (PCR) Not detected, Entero/Rhino (PCR) Not detected 04/08/24 16:50: Troponin I < 0.01 I & O for Last 24 hours: Intake & Output 04/05/24 04/06/24 04/07/24 04/08/24 23:59 23:59 23:59 23:59 Weight 125.872 kg Constitutional Constitutional: no acute distress and obese *Routine HEENT Exam Head: Present normocephalic Eye: Present EOMI and PERRL ENT: Present mucous membranes moist *Routine Neck Exam Neck: Present supple; Absent lymphadenopathy *Routine Respiratory Exam Respiratory: Present CTA bilaterally *Routine Cardiovascular Exam Cardiovascular: Present RRR *Routine Abdominal Exam Abdominal: Present soft, normoactive bowel sounds and tenderness Comments: Mild generalized abdominal tenderness without peritoneal signs. *Routine Rectal Exam Rectal:: deferred *Routine Genitalia Exam Genitalia:: deferred *Routine Extremities Exam Extremities: Absent cyanosis, clubbing or edema *Routine Skin Exam Skin: Present warm; Absent rash *Routine Neurological Exam Neurological: Present alert and oriented X3 Assessment and Plan *Assessment and plan (1) COVID-19: Status: Acute Category: Medical Code(s): U07.1 - COVID-19 (2) Community acquired pneumonia: Status: Acute Category: Medical Code(s): J18.9 - Pneumonia, unspecified organism (3) Sepsis: Status: Acute Category: Medical Code(s): A41.9 - Sepsis, unspecified organism Plan Carol Alejo is a 58-year-old female with a medical history significant for anxiety/depression, and recent COVID-19 infection about 4 weeks ago presents with progressive profound weakness and persistent cough. She states she was diagnosed with COVID-19 about 4 weeks ago, and has had persistent cough since then. She has undergone 2 rounds of antibiotics including doxycycline, and Medrol pack 4 weeks ago. Neither have alleviated symptoms. She endorses shortness of breath with exertion, nonproductive cough, fever/chills, profound weakness, decreased oral intake, in addition to profuse watery diarrhea over the past week. Workup in the ED significant for WBC 11.7, sodium 146. CTA chest suggestive of bilateral pneumonia, right greater than left. Patient is saturating well on room air. Case discussed with ED provider and decision was made to admit patient for profound weakness, cough in the setting of community- acquired pneumonia and failed outpatient treatment. #Community-acquired pneumonia #Recent COVID-19 infection #Sepsis ? Met SIRS criteria with temperature 100.3, WBC 11.7, pulse up to 94. Ordered 2 L sepsis bolus, no signs of volume overload. ? With the recent COVID-19 infection, and the fact that patient has waxed and waned in symptoms over the past month highly suggest bacterial superimposition with Staph aureus. Failed outpatient antibiotic therapy with including doxycycline. ? CTA chest revealed bilateral pneumonia, right greater than left. Respiratory panel negative. ? Vancomycin, cefepime day 1. Follow-up MRSA screen. ? Follow-up sputum, blood cultures. ? Continue with 1/2 NS at 100 L/h given poor oral intake and dehydration/hypernatremia. #Physical deconditioning ? Patient has profound weakness on exam. No significant metabolic derangements to suggest metabolic origin. ? Likely secondary to pneumonia. ? PT/OT consulted, pending recommendations. ? Follow-up TSH, UA. #Diarrhea ? Endorses 1 week of profuse, watery, foul-smelling diarrhea. Though, last one was last night. Has not had 1 today. Has been on 2 rounds of antibiotics in the past month ? Follow-up diarrhea panel. ? Patient does have mild generalized abdominal tenderness, though she has been persistently coughing. #Hypercarbia ? VBG pCO2 52.1, though relatively compensated with pH 7.32. ? No history of chronic lung disease, non-smoker. ? May be secondary to undiagnosed sleep apnea versus obesity hypoventilation syndrome in the setting of morbid obesity. ? Consider overnight oxygen test to possibly qualify for CPAP. ? DuoNebs every 6 hours. #Obesity ? Complicates all aspects of care. Full code DVT prophylaxis: Lovenox 40 mg twice daily
[2024-04-08 19:04] LABS: Lactic Acid Follow Up (RFLX 1) 1.4 mmol/L (0.7-2.1)
--- NOTE | 2024-04-08 20:08 | PC.NURSE ---
2008: spoke with Yudy at [facility] for a vanc. consult. She verified dose of 2.5 grams and will put the order into the MAR.
[2024-04-08] MEDS: ACETAMINOPHEN 325MG TAB 650 MG PO (20:16)
[2024-04-08] MEDS: BELLADONNA ALKALOIDS 60 ML ML PO (20:17)
[2024-04-08 20:58] LABS: Troponin I < 0.01 ng/ml (0.00-0.034)
[2024-04-08] MEDS: VANCOMYCIN CONSULT REQUEST 1 EACH NOTAPPLIC (22:02)
[2024-04-08] MEDS: VANCOMYCIN HCL 2,500 MG in 0.9 % SODIUM CHLORIDE 250 ML 125 MG IV (22:03)
[2024-04-08] MEDS: IPRATROPIUM/ALBUTEROL 3 ML NEB IH (23:42)
[2024-04-09] VITALS (9 sets, daily range): BP systolic 115–145; BP diastolic 45–78; PULSE 88–99; RESP 16–20; TEMP 36.7–37.2; O2SAT 90–98; BMI 44.4
[2024-04-09] MEDS: guaiFENesin 600 MG TAB.ER.12H 1200 MG PO ×3 (01:11→20:36)
[2024-04-09] MEDS: ENOXAPARIN 40MG/0.4ML SYRINGE 40 MG SUBCUT ×3 (01:12→20:37)
[2024-04-09] MEDS: 0.9 % SODIUM CHLORIDE 1000ML 1,000 ML 999 ML IV (01:20)
[2024-04-09] MEDS: MAGIC MOUTHWASH 300ML BOTTLE 15 ML PO ×3 (01:20→20:37)
[2024-04-09] MEDS: FAMOTIDINE 20MG TABLET 40 MG PO (02:21)
[2024-04-09] MEDS: PANTOPRAZOLE 40MG TABLET 40 MG PO ×2 (03:27→20:36)
[2024-04-09] MEDS: SODIUM CHLORIDE 0.45 % 1,000 ML 100 ML IV (03:27)
[2024-04-09] MEDS: IPRATROPIUM/ALBUTEROL 3 ML NEB IH ×4 (06:07→23:45)
[2024-04-09 06:09] LABS: Albumin Level 3.4 g/dl (3.5-5.0); Chloride 110 mmol/L (98-107); Sodium 139 mmol/L (136-145)
[2024-04-09 06:10] LABS: Potassium 3.8 mmoL/L (3.5-5.1)
[2024-04-09 06:12] LABS: Alanine Aminotransferase 16 U/L (12-78); Anion Gap 7.8 mEq/L (5-15); Aspartate Amino Transferase 45 U/L (14-36); Basophils % 0.3 % (0.1-2.0); Blood Urea Nitrogen 13 mg/dl (7-17); Carbon Dioxide 25 mmol/L (22.0-30.0); Creatinine Clearance Estimated 113 mL/min (50-200); Eosinophils # 0.1 K/mm3 (0.0-0.4); Eosinophils % 0.5 % (0.1-12.0); Estimated Glomerular Filt Rate 126 ml/min (>60); GFR (African American) 153 ML/MIN (>60); Hematocrit 32.9 % (37.0-47.0); Lymphocytes # 1.2 K/mm3 (0.7-4.5); Mean Corpuscular HGB Conc 33.1 g/dL (31.8-35.4); Mean Corpuscular Hemoglobin 29.7 pg (27.0-31.2); Mean Corpuscular Volume 89.8 fl (81-99); Mean Platelet Volume 7.2 fl (7.4-10.4); Monocytes # 0.6 K/mm3 (0.1-1.0); Neutrophils # 10.4 K/mm3 (1.8-7.8); Neutrophils % 84.2 % (37.0-80.0); Platelet Count 386 K/mm3 (142-424); Red Blood Count 3.66 M/mm3 (4.20-5.40); Red Cell Distribution Width 15.5 % (11.5-17.5); White Blood Count 12.3 K/mm3 (4.8-10.8)
[2024-04-09 06:13] LABS: Albumin/Globulin Ratio 1.1 (1.1-1.8); Alkaline Phosphatase 152 U/L (38-126); Calcium 8.1 mg/dl (8.4-10.2); Globulin 3.2 g/dL (1.3-3.2); Glucose 146 mg/dl (74-100); Hemoglobin 10.9 g/dL (12.2-16.2); Total Protein,Serum 6.6 g/dl (6.3-8.2)
--- NOTE | 2024-04-09 06:17 | PC.NURSE ---
04/09/24 Pt was admitted yesterday with COVID pneumonia. Pt. was febrile last night. Pt. has a harsh cough. IVF and antibiotics given overnight. Pt is on 2 L oxygen per NC. Pt. was ambulatory to the bathroom. Pt. is alert and orientated x 4. vital signs stable , Personal items and call potter in reach.
[2024-04-09 06:34] LABS: Free T4 (Free Thyroxine) 0.93 ng/dl (0.78-2.19)
[2024-04-09] MEDS: ACETAMINOPHEN 325MG TAB 650 MG PO (07:28)
--- NOTE | 2024-04-09 08:15 | P.CONPHA_ITS ---
Pharmacy Consult Date: 04/09/24 Time: 08:15 Referring provider: DR. SMALL Reason for Consult:: VANCOMYCIN DOSING Allergies Allergy/AdvReac Type Severity Reaction Status Date / Time penicillin G Allergy Severe Anaphylaxis Verified 07/31/22 15:43 nitrofurantoin (From Allergy Unknown Unknown Verified 07/31/22 15:43 Macrobid) allergy reaction aspirin Allergy Unknown Verified 04/08/24 14:02 allergy reaction ciprofloxacin (From Cipro) Allergy Unknown Verified 04/08/24 14:02 allergy reaction codeine Allergy Unknown Verified 04/08/24 14:02 allergy reaction ibuprofen Allergy Unknown Verified 04/08/24 14:02 allergy reaction meloxicam (From Mobic) Allergy Unknown Verified 04/08/24 14:02 allergy reaction Home Medications ?Medication ?Instructions ?Recorded ?Confirmed ?Type buspirone 15 mg tablet 15 mg PO BID PRN break through 04/24/21 04/08/24 History anxiety bupropion HCl 300 mg 24 hr tablet, 300 mg PO DAILY 03/12/24 04/08/24 History extended release escitalopram oxalate 20 mg tablet 20 mg PO DAILY 03/12/24 04/08/24 History hydroxyzine pamoate 25 mg capsule 25 mg PO DAILY 03/12/24 04/08/24 History trazodone 100 mg tablet 100 mg PO DAILY 03/12/24 04/08/24 History New Prescriptions to Start Prescriptions: Height: 1.7 m Weight: 128.412 kg Laboratory Results:: Laboratory Results - last 24 hr 04/08/24 13:58: WBC 11.7 H, RBC 4.23, Hgb 12.7, Hct 38.8, MCV 91.9, MCH 30.0, MCHC 32.7, RDW 15.4, Plt Count 393, MPV 7.1 L, Neut % (Auto) 81.0 H, Lymph % (Auto) 12.4, Gilchrist % (Auto) 5.7, Eos % (Auto) 0.6, Baso % (Auto) 0.4, Neut # (Auto) 9.5 H, Lymph # (Auto) 1.5, Gilchrist # (Auto) 0.7, Eos # (Auto) 0.1, Baso # (Auto) 0.0, PT 10.8, INR 0.96, Sodium 146 H, Potassium 3.9, Chloride 109 H, Carbon Dioxide 27, Anion Gap 13.9, BUN 18 H, Creatinine 0.60, Estimated Creat Clear 98, Estimated GFR 102, Est GFR ( Amer) 124, Glucose 127 H, Calcium 9.4, Magnesium 2.4 H, Total Bilirubin 1.0, AST 35, ALT 22, Alkaline Phosphatase 151 H, Total Creatine Kinase 146 H, Troponin I < 0.01, Total Protein 8.0, Albumin 4.0, Globulin 4.0 H, Albumin/Globulin Ratio 1.0 L, HIV 1&2 Antibody Rapid Nonreactive 04/08/24 14:07: VBG pH 7.32, VBG pCO2 52.1 H, VBG pO2 20.0 L, VBG HCO3 26.0, VBG Total CO2 27.6 H, VBG O2 Saturation 26.9 L, VBG Base Excess -0.2, VBG Lactic Acid 4.6 H 04/08/24 14:15: Chlamy pneumoniae PCR Not detected, Adenovirus (PCR) Not detected, B. pertussis DNA (PCR) Not detected, Coronavirus OC43 (PCR) Not detected, Coronavirus HKU1 (PCR) Not detected, Coronavirus 229E (PCR) Not detected, SARS-CoV-2 (PCR) Not detected, Coronavirus NL63 (PCR) Not detected, Human Metapneumovir PCR Not detected, Influenza A (H1) PCR Not detected, Influ A (H1N1/09) PCR Not detected, Influenza A (H3) PCR Not detected, Influenza Type A (PCR) Not detected, Influenza Type B (PCR) Not detected, M. pneumoniae (PCR) Not detected, Parainfluenza 1 (PCR) Not detected, Parainfluenza 2 (PCR) Not det ected, Parainfluenza 3 (PCR) Not detected, Parainfluenza 4 (PCR) Not detected, RSV (PCR) Not detected, Entero/Rhino (PCR) Not detected 04/08/24 16:50: Troponin I < 0.01 04/08/24 18:44: Lactate 1.4 04/08/24 20:13: Troponin I < 0.01 04/09/24 05:35: WBC 12.3 H, RBC 3.66 L, Hgb 10.9 L D, Hct 32.9 L, MCV 89.8, MCH 29.7, MCHC 33.1, RDW 15.5, Plt Count 386, MPV 7.2 L, Neut % (Auto) 84.2 H, Lymph % (Auto) 10.0, Gilchrist % (Auto) 5.0, Eos % (Auto) 0.5, Baso % (Auto) 0.3, Neut # (Auto) 10.4 H, Lymph # (Auto) 1.2, Gilchrist # (Auto) 0.6, Eos # (Auto) 0.1, Baso # (Auto) 0.0, Sodium 139, Potassium 3.8, Chloride 110 H, Carbon Dioxide 25, Anion Gap 7.8, BUN 13 D, Creatinine 0.50 L, Estimated Creat Clear 113, Estimated GFR 126, Est GFR ( Amer) 153 D, Glucose 146 H, Calcium 8.1 L, Total Bilirubin 1.0, AST 45 H D, ALT 16 D, Alkaline Phosphatase 152 H, Total Protein 6.6, Albumin 3.4 L D, Globulin 3.2, Albumin/Globulin Ratio 1.1, TSH 0.60, Free T4 0.93 Assessment and Plan Assessment and plan all Dx Assessment and Plan for all problems:: Pharmacokinetic dosing service Objective: Patient: Floor: Age: 58 yo Serum creatinine: 0.50 mg/dL Height: 66.9 Inches Weight (kg): 128.4 Assessment: IBW (kg): 61.37 Dosing wt(kg): 128.4 Estimated Creatinine clearance (ml/min): 117.4 CRCL method: Cockcroft and Gault using ibw(default). Drug selected: Vancomycin Loading dose (mg): Vd (liters): 102.7 (factor used: 0.8 L/kg) Beni (hr-1): 0.102 Half life (hrs): 6.80 CLvanco=?? 10.475 L/hr Recommended dose: 2000 mg Interval: 8 hrs Infusion time (hrs): 2.0 Predicted peak (mcg/mL): 31.6 Predicted trough (mcg/mL): 17.14 Total body weight is being used for vancomycin dosing. Recommendations: Give Vancomycin 2000 mg q 8 hrs with an expected Cpeak of 31.6 mcg/ml and an expected Ctrough of 17.14 mcg/ml AUC 0-24 /RUI Data: RUI 0.5 mcg/mL:?? AUC/RUI:? 1145.6 RUI 1.0 mcg/mL:?? AUC/RUI:? 572.8 --------- RUI 1.5 mcg/mL:?? AUC/RUI:? 381.9 RUI 2.0 mcg/mL:?? AUC/RUI:? 286.4 Thank you for the consult, will continue to follow. -ENRIQUE SALAZAR, SHAMEKAD
[2024-04-09] MEDS: VANCOMYCIN HCL 2,000 MG in 0.9 % SODIUM CHLORIDE 250 ML 125 MG IV ×2 (09:14→16:31)
--- NOTE | 2024-04-09 09:19 | HMH.PHAINT1 ---
Pharmacy Intervention Comments: MEDICATION RECONCILIATION COMPLETED ON PATIENT USING EXTERNAL FILL HISTORY FROM PHARMACY. -ENRIQUE SALAZAR, SHAMEKAD
--- NOTE | 2024-04-09 10:00 | PC.NURSE ---
pt weaned from 2L nc to room air. pt o2 sat consistently above 90% on room air. no new orders at this time. call light within reach.
[2024-04-09] MEDS: CEFTRIAXONE SODIUM 1 GM in 0.9 % SODIUM CHLORIDE 50 ML IV (11:18)
[2024-04-09] MEDS: AZITHROMYCIN 500 MG in 0.9 % SODIUM CHLORIDE 250 ML 250 MG IV (11:47)
--- NOTE | 2024-04-09 14:18 | HMH.PTEV ---
Physical Therapy Evaluation Rehab PT IP Evaluation Start: 04/08/24 21:55 Freq: ONCE Status: Active Protocol: Document 04/09/24 12:57 PDESEROUX (Rec: 04/09/24 13:08 PDESEROUX [id number]) Subjective/History History History Pt. is a 58 year old Female who presents to 2nd floor [facility] Inpatient w/ c/o acute and constant dyspnea, cough, and fatigue upon exertion that has progressively been getting worse over the last 4 weeks. Pt. reports she was diagnosed w/ COVID 4 weeks ago that never got better. Pt. reports recent diagnostic imaging indicates pneumonia. Pt. reports there were times where she had good times where she would go to work, however, symptoms would worsen again the next day. Pt. reports living in a 1-story home where her grandchildren in their 20's come during the week and her is home on the weekends. Pt. reports she is IND. w/ ADLs prior to symptom exacerbation, and continues to vocalizes being IND. w/ ADLs, just c/o increased dyspnea and cough upon exertion. Subjective Subjective Pt. vocalizes a 6/10 LBP! at rest that increases to a 8/10 w/ activity. New diagnosis of cancer in past 12 No months? Rehab PT IP Eval Objective Appearance Patient Behavior Appropriate,Cooperative, Anxious,Fatigued Patient Orientation Person,Place,Age Difficulty following instructions none Speech Pattern Clear Ambulation Patient Able to Ambulate Yes Ambulation Observation IP General Gait Pattern Observation Wide Based Gait,Shuffling Step Ambulation Distance (feet) 10 Ambulation Assistive Device None Ambulation Ability Minimal x 1 (25% assist) Balance Ability to Arise Able, uses arms to help Sitting Balance Steady, safe Standing Balance Steady, wide stance Dynamic Sitting Balance Ability Good Dynamic Standing Balance Ability Good Transfers Bed Transfer Ability Contact Guard/Hand Hold Chair Transfer Ability Minimal x 1 (25% assist) Sit to Stand Bed Transfer Ability Minimal x 1 (25% assist) Sit to Stand Chair Transfer Ability Minimal x 1 (25% assist) Pain Lower Back Pain Intensity 6 ROM RLE PT ROM Status WFL LLE PT ROM Status WFL MMT RLE PT MMT WFL LLE PT MMT WFL Rehab PT IP prob,goals,plan Problems Date of Evaluation: 04/09/24 PT IP Problems Transfers,Gait,Balance,Safety Rehab Potential Rehab Potential Good Equipment Needs Assistive Devices None / NA Plan PT Intervention Plan Transfers,Gait,Balance,Safety, Therapeutic Exercise PT Plan Frequency BID Duration LOS Discharge Goals Bed Transfer Ability Supervision/Stand by Sit to Stand Chair Transfer Ability Contact Guard/Hand Hold Ambulation Assistive Device None Ambulation Distance (feet) 25 Discharge Plan PT Discharge Plan Upon discharge from [facility], once medically stable per MD, pt. is appropriate for her home environment. Eval Complexity Eval Charge Codes 08336 - Low Complexity PHYSICIAN CERTIFICATION: I certify the specified therapy services for Valorie Alejo are required, authorized, and reviewed every 30 days.
--- NOTE | 2024-04-09 15:15 | PC.NURSE ---
Addendum entered by Lakisha Candelaria RN 04/09/24 18:15: instructed this RN to hold fluids prior in shift. Original Note: pt was weaned to room air from 2L nc prior in shift. pt o2 sats have remained above 90%. pt has been c/o rt lower back pain, MD aware. MD suspects the pain is from coughing. pt c/o headache earlier in shift and was medicated per order (see JUL). pt has had no other complaints throughout shift. pt has been ambulating to and from bathroom w/ standby assistance.MRSA swab was collected earlier in shift and is pending results. no new orders at this time. call light within reach, no new orders at this time.
--- NOTE | 2024-04-09 15:23 | EXP.ACUTE.PN ---
Subjective *Date: 04/09/24 *Time: 15:23 Interval history: Feeling marginally better today, weaned to room air. 92% on room air on morning rounds. Still having some back discomfort due to coughing. No nausea or vomiting. No chest pain. Afebrile. Tolerating p.o. intake. Medical Exam Vital signs and Labs for Last 24 Hours: Vital Signs Temp Pulse Pulse Resp BP BP Pulse Ox 04/09/24 14:42 04/09/24 13:00 04/09/24 11:30 89 04/09/24 11:30 92 H 04/09/24 11:30 92 L 04/09/24 11:00 04/09/24 09:00 04/09/24 08:00 98.0 F 98 H 16 145/61 H 90 L 04/09/24 08:00 04/09/24 07:00 04/09/24 06:08 99 H 04/09/24 06:08 89 04/09/24 06:08 92 L 04/09/24 04:44 04/09/24 04:00 98.8 F 94 H 20 141/78 H 92 L 04/09/24 03:00 04/09/24 01:00 04/09/24 00:00 98.9 F 89 20 115/45 L 93 L 04/08/24 23:43 90 04/08/24 23:43 89 04/08/24 23:00 04/08/24 21:00 04/08/24 20:00 04/08/24 19:23 100.3 F H 90 18 140/62 96 04/08/24 18:41 04/08/24 18:31 04/08/24 17:57 98.8 F 86 21 108/91 L 93 L 04/08/24 17:00 04/08/24 16:26 98.2 F 86 22 135/97 H O2 Del Method O2 Flow Rate 04/09/24 14:42 Room Air 04/09/24 13:00 Room Air 04/09/24 11:30 04/09/24 11:30 04/09/24 11:30 Room Air 04/09/24 11:00 Room Air 04/09/24 09:00 Nasal Cannula 2 04/09/24 08:00 Nasal Cannula 2 04/09/24 08:00 Nasal Cannula 2 04/09/24 07:00 Nasal Cannula 2 04/09/24 06:08 04/09/24 06:08 04/09/24 06:08 Nasal Cannula 2 04/09/24 04:44 Room Air 04/09/24 04:00 Nasal Cannula 2 04/09/24 03:00 Nasal Cannula 2 04/09/24 01:00 Room Air 04/09/24 00:00 Nasal Cannula 2 04/08/24 23:43 04/08/24 23:43 04/08/24 23:00 Nasal Cannula 2 04/08/24 21:00 Nasal Cannula 2 04/08/24 20:00 Nasal Cannula 2 04/08/24 19:23 Room Air 04/08/24 18:41 Nasal Cannula 04/08/24 18:31 Room Air 04/08/24 17:57 Room Air 04/08/24 17:00 Room Air 04/08/24 16:26 Room Air Intake and Output 04/08/24 04/09/24 04/09/24 23:59 07:59 15:59 Intake Total 120 / 120 1410 / 1410 Output Total 0 / 0 0 / 0 Balance 120 / 120 0 / 1410 1410 / 1410 Intake: Intake, Oral Amount 120 / 120 760 / 760 Intake, Total IV Amount 650 / 650 Sodium Chloride 0.45 % 1,000 ml 650 / 650 @ 100 mls/hr IV .Q10H FORMERLY [facility], 1928–1983 Rx#: [id number] Output: Output, Urine Amount 0 / 0 0 / 0 Other: Number of Unmeasured Voids 1 2 Number of Bowel Movements 1 Weight 125.872 kg 128.412 kg 128.412 kg Patient Weight 04/09/24 23:59 Weight 128.412 kg Laboratory Results - last 24 hr 04/08/24 13:58: HIV 1&2 Antibody Rapid Nonreactive 04/08/24 14:15: Chlamy pneumoniae PCR Not detected, Adenovirus (PCR) Not detected, B. pertussis DNA (PCR) Not detected, Coronavirus OC43 (PCR) Not detected, Coronavirus HKU1 (PCR) Not detected, Coronavirus 229E (PCR) Not detected, SARS-CoV-2 (PCR) Not detected, Coronavirus NL63 (PCR) Not detected, Human Metapneumovir PCR Not detected, Influenza A (H1) PCR Not detected, Influ A (H1N1/09) PCR Not detected, Influenza A (H3) PCR Not detected, Influenza Type A (PCR) Not detected, Influenza Type B (PCR) Not detected, M. pneumoniae (PCR) Not detected, Parainfluenza 1 (PCR) Not detected, Parainfluenza 2 (PCR) Not detected, Parainfluenza 3 (PCR) Not detected, Parainfluenza 4 (PCR) Not detected, RSV (PCR) Not detected, Entero/Rhino (PCR) Not detected 04/08/24 16:50: Troponin I < 0.01 04/08/24 18:44: Lactate 1.4 04/08/24 20:13: Troponin I < 0.01 04/09/24 05:35: WBC 12.3 H, RBC 3.66 L, Hgb 10.9 L D, Hct 32.9 L, MCV 89.8, MCH 29.7, MCHC 33.1, RDW 15.5, Plt Count 386, MPV 7.2 L, Neut % (Auto) 84.2 H, Lymph % (Auto) 10.0, [place] % (Auto) 5.0, Eos % (Auto) 0.5, Baso % (Auto) 0.3, Neut # (Auto) 10.4 H, Lymph # (Auto) 1.2, [place] # (Auto) 0.6, Eos # (Auto) 0.1, Baso # (Auto) 0.0, Sodium 139, Potassium 3.8, Chloride 110 H, Carbon Dioxide 25, Anion Gap 7.8, BUN 13 D, Creatinine 0.50 L, Estimated Creat Clear 113, Estimated GFR 126, Est GFR ( Amer) 153 D, Glucose 146 H, Calcium 8.1 L, Total Bilirubin 1.0, AST 45 H D, ALT 16 D, Alkaline Phosphatase 152 H, Total Protein 6.6, Albumin 3.4 L D, Globulin 3.2, Albumin/Globulin Ratio 1.1, TSH 0.60, Free T4 0.93 I & O for Labs for Last 24 Hours: Intake & Output 04/06/24 04/07/24 04/08/24 04/09/24 23:59 23:59 23:59 23:59 Intake Total 120 / 120 1410 / 1410 Output Total 0 / 0 Balance 120 / 120 1410 / 1410 Weight 125.872 kg 128.412 kg Microbiology Reports for the Last 24 Hours: Microbiology 04/08/24 19:00 Sputum - Expectorated Sputum Gram Stain - Final Constitutional: Present no acute distress, morbidly obese and cooperative Head: Present atraumatic and normocephalic Respiratory: Present prolonged expiratory phase, crackles and normal respiratory effort; Absent rhonchi or wheezes Cardiac: Present Reg Rate and Rhythm GI: Present normal bowel sounds; Absent tenderness Extremities: Present normal inspection and full ROM Skin: Present intact; Absent erythema Neuro: Present Grossly Intact, alert, awake, oriented x 3 and moves all extremities Additional Findings:: steam bone press tender to palpation in paraspinal muscles in the lower thoracic region. 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 She states she was diagnosed with COVID-19 about 4 weeks ago, and has had persistent cough since then. She has undergone 2 rounds of antibiotics including doxycycline and azithromycin courses. Continue to have persistent symptoms. CTA shows bilateral pneumonia. Weaned to room air overnight. Feeling little bit better per her report today. Continues to require inpatient management. Evaluate for discharge home in the morning. Problems addressed as follows: #Community-acquired pneumonia #Recent COVID-19 infection #Sepsis ? Met sepsis criteria with temperature 100.3, WBC 11.7, pulse up to 94. Ordered 2 L sepsis bolus, no signs of volume overload. ? With the recent COVID-19 infection, and the fact that patient has waxed and waned in symptoms over the past month highly suggest bacterial superimposition with Staph aureus. Failed outpatient antibiotic therapy with including doxycycline. ? CTA chest revealed bilateral pneumonia, right greater than left. Respiratory panel negative. ? Transition to ceftriaxone 1 g daily, continue vancomycin 2 g IV every 8 hours, 500 mg azithromycin daily. MRSA screen still pending. Wean vancomycin if negative ? Follow-up sputum, blood cultures. -Discontinue IV fluids -White count 12, kidney function normal with BUN 13, creatinine 0.5. Repeat CBC, CMP, magnesium ordered for the morning. #Physical deconditioning ? Patient has profound weakness on exam. No significant metabolic derangements to suggest metabolic origin. ? Likely secondary to pneumonia. ? PT/OT consulted, stable discharge home with home health. - Urine unremarkable for UTI; TSH normal at 0.6 #Diarrhea ? Diarrhea resolved. No panel obtained at this time. Suspect secondary to antibiotic effect. #Hypercarbia ? VBG pCO2 52.1, though relatively compensated with pH 7.32. On admission. ? No history of chronic lung disease, non-smoker. ? May be secondary to undiagnosed sleep apnea versus obesity hypoventilation syndrome in the setting of morbid obesity. ? Consider overnight oxygen test to possibly qualify for CPAP. ? DuoNebs every 6 hours. #Obesity ? Complicates all aspects of care. Full code DVT prophylaxis: Lovenox 40 mg twice daily Regular diet
[2024-04-09 20:25] LABS: Microscopic, Urine URINE MICROSCOPIC (MICROSCOPIC)
[2024-04-09 20:26] LABS: Appearance,Urine Cloudy (Clear); Bilirubin,Urine Negative (Negative); Blood, Urine 2+ (Negative); Color,Urine Dark Yellow (Yellow); Glucose,Urine (UA) Negative (Negative); Ketones,Urine Negative (Negative); Leukocyte Esterase,Urine Negative (Negative); Nitrate,Urine Negative (Negative); Protein,Urine Negative (Negative); Specific Gravity, Urine 1.025 (1.005-1.030)
[2024-04-09 20:36] LABS: Amorphous Sediment,Urine 1+ /lpf; Bacteria,Urine Trace /lpf; Squamous Epithelial Cell,Urine Occasional #/hpf (0-5); WBC,Urine Occasional #/hpf (0-3)
[2024-04-09] MEDS: TRAZODONE 50MG TABLET 100 MG PO (20:36)
[2024-04-10 00:16] VITALS: PULSE 84; PULSE 88
[2024-04-10] MEDS: ACETAMINOPHEN 325MG TAB 650 MG PO (00:41)
[2024-04-10] MEDS: VANCOMYCIN HCL 2,000 MG in 0.9 % SODIUM CHLORIDE 250 ML 125 MG IV (03:08)
--- NOTE | 2024-04-10 03:29 | P.DS_ITS ---
General Admission date:: 04/08/24 Discharge date: 04/10/24 HPI HPI HPI: Carol Alejo is a 58-year-old female with a medical history significant for anxiety/depression, and recent COVID-19 infection about 4 weeks ago presents with progressive profound weakness and persistent cough. She states she was diagnosed with COVID-19 about 4 weeks ago, and has had persistent cough since then. She has undergone 2 rounds of antibiotics including doxycycline, and Medrol pack 4 weeks ago. Neither have alleviated symptoms. She endorses shortness of breath with exertion, nonproductive cough, fever/chills, profound weakness, decreased oral intake, in addition to profuse watery diarrhea over the past week. Workup in the ED significant for WBC 11.7, sodium 146. CTA chest suggestive of bilateral pneumonia, right greater than left. Patient is saturating well on room air. Case discussed with ED provider and decision was made to admit patient for profound weakness, cough in the setting of community- acquired pneumonia and failed outpatient treatment. Hospital Course Hospital Course Hospital Course: Patient left AMA Exam Data for Last 24 hours Vital signs and Labs for Last 24 Hours: Temp Pulse Resp BP Pulse Ox O2 Del Method O2 Flow Rate 99.0 F 88 16 123/73 98 Room Air 2 04/09/24 20:00 04/10/24 00:16 04/09/24 20:00 04/09/24 20:00 04/09/24 20:00 04/09/24 23:00 04/09/24 19:19 Laboratory Results - last 24 hr 04/09/24 05:35: WBC 12.3 H, RBC 3.66 L, Hgb 10.9 L D, Hct 32.9 L, MCV 89.8, MCH 29.7, MCHC 33.1, RDW 15.5, Plt Count 386, MPV 7.2 L, Neut % (Auto) 84.2 H, Lymph % (Auto) 10.0, [place] % (Auto) 5.0, Eos % (Auto) 0.5, Baso % (Auto) 0.3, Neut # (Auto) 10.4 H, Lymph # (Auto) 1.2, [place] # (Auto) 0.6, Eos # (Auto) 0.1, Baso # (Auto) 0.0, Sodium 139, Potassium 3.8, Chloride 110 H, Carbon Dioxide 25, Anion Gap 7.8, BUN 13 D, Creatinine 0.50 L, Estimated Creat Clear 113, Estimated GFR 126, Est GFR ( Amer) 153 D, Glucose 146 H, Calcium 8.1 L, Total Bilirubin 1.0, AST 45 H D, ALT 16 D, Alkaline Phosphatase 152 H, Total Protein 6.6, Albumin 3.4 L D, Globulin 3.2, Albumin/Globulin Ratio 1.1, TSH 0.60, Free T4 0.93 04/09/24 20:13: Urine Color Dark yellow, Urine Appearance Cloudy, Urine pH 6.0, Ur Specific [place] 1.025, Urine Protein Negative, Urine Glucose (UA) Negative, Urine Ketones Negative, Urine Blood 2+ A, Urine Nitrate Negative, Urine Bilirubin Negative, Urine Urobilinogen 1.0, Ur Leukocyte Esterase Negative, Urine RBC 10-20, Urine WBC Occasional, Ur Squamous Epith Cells Occasional, Amorphous Sediment 1+, Urine Bacteria Trace I & O for Last 24 hours: Intake & Output 04/07/24 04/08/24 04/09/24 04/10/24 05:59 05:59 05:59 05:59 Intake Total 120 / 120 2680 / 2680 Output Total 0 / 0 400 / 400 Balance 120 / 120 2280 / 2280 Weight 283 lb 1.6 oz 283 lb 1.6 oz Microbiology Reports for the Last 24 Hours: Microbiology 04/08/24 15:58 Blood Blood Culture - Preliminary NO GROWTH AFTER 24 HOURS 04/08/24 15:50 Blood Blood Culture - Preliminary NO GROWTH AFTER 24 HOURS Results Data Completed and Pending Labs on day of discharge: Labs from last 24 hours 04/09/24 04/09/24 20:13 05:35 WBC 12.3 H RBC 3.66 L Hgb 10.9 L D Hct 32.9 L MCV 89.8 MCH 29.7 MCHC 33.1 RDW 15.5 Plt Count 386 MPV 7.2 L Neut % (Auto) 84.2 H Lymph % (Auto) 10.0 [place] % (Auto) 5.0 Eos % (Auto) 0.5 Baso % (Auto) 0.3 Neut # (Auto) 10.4 H Lymph # (Auto) 1.2 [place] # (Auto) 0.6 Eos # (Auto) 0.1 Baso # (Auto) 0.0 Sodium 139 Potassium 3.8 Chloride 110 H Carbon Dioxide 25 Anion Gap 7.8 BUN 13 D Creatinine 0.50 L Estimated Creat Clear 113 Estimated GFR 126 Est GFR ( Amer) 153 D Glucose 146 H Calcium 8.1 L Total Bilirubin 1.0 AST 45 H D ALT 16 D Alkaline Phosphatase 152 H Total Protein 6.6 Albumin 3.4 L D Globulin 3.2 Albumin/Globulin Ratio 1.1 TSH 0.60 Free T4 0.93 Urine Color Dark yellow Urine Appearance Cloudy Urine pH 6.0 Ur Specific [place] 1.025 Urine Protein Negative Urine Glucose (UA) Negative Urine Ketones Negative Urine Blood 2+ A Urine Nitrate Negative Urine Bilirubin Negative Urine Urobilinogen 1.0 Ur Leukocyte Esterase Negative Urine RBC 10-20 Urine WBC Occasional Ur Squamous Epith Cells Occasional Amorphous Sediment 1+ Urine Bacteria Trace Preliminary micro results at discharge 04/08/24 15:58 Blood Culture - Preliminary Blood NO GROWTH AFTER 24 HOURS 04/08/24 15:50 Blood Culture - Preliminary Blood NO GROWTH AFTER 24 HOURS DS: Diagnosis Discharge Diagnosis (1) Community acquired pneumonia: Status: Acute Code(s): J18.9 - Pneumonia, unspecified organism (2) COVID-19: Status: Acute Code(s): U07.1 - COVID-19 (3) Sepsis: Status: Acute Code(s): A41.9 - Sepsis, unspecified organism (4) 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: Status: Acute Code(s): E66.813 - Obesity, class 3; E88.82 - Obesity due to disruption of MC4R pathway; Z15.2 - Genetic susceptibility to obesity; Z68.41 - Body mass index [BMI] 40.0- 44.9, adult Meds Home Medications and Allergies Home Medications ?Medication ?Instructions ?Recorded ?Confirmed ?Type bupropion HCl 300 mg 24 hr tablet, 300 mg PO DAILY 03/12/24 04/08/24 History extended release escitalopram oxalate 20 mg tablet 20 mg PO DAILY 03/12/24 04/08/24 History hydroxyzine pamoate 25 mg capsule 25 mg PO BIDP PRN Anxiety 03/12/24 04/09/24 History trazodone 100 mg tablet 300 mg PO HS 03/12/24 04/09/24 History albuterol sulfate 90 mcg/actuation 1 puff inhalation Q4HP PRN 04/09/24 04/09/24 History aerosol inhaler Shortness Of Breath atorvastatin 40 mg tablet 40 mg PO DAILY 04/09/24 04/09/24 History New Prescriptions to Start Prescriptions: Allergies Allergy/AdvReac Type Severity Reaction Status Date / Time penicillin G Allergy Severe Anaphylaxis Verified 07/31/22 15:43 nitrofurantoin (From Allergy Unknown Unknown Verified 07/31/22 15:43 Macrobid) allergy reaction aspirin Allergy Unknown Verified 04/08/24 14:02 allergy reaction ciprofloxacin (From Cipro) Allergy Unknown Verified 04/08/24 14:02 allergy reaction codeine Allergy Unknown Verified 04/08/24 14:02 allergy reaction ibuprofen Allergy Unknown Verified 04/08/24 14:02 allergy reaction meloxicam (From Mobic) Allergy Unknown Verified 04/08/24 14:02 allergy reaction lactose AdvReac Other Verified 04/09/24 10:02 Discharge Plan Disposition Patient Disposition: Left Against Medical Advice Condition: Fair Patient Discharge Instructions Print Language: Latvian Providers Admit Provider: Roman King Attending Provider: Roman King
[2024-04-10 04:00] VITALS: BP 153/82; PULSE 90; RESP 16; TEMP 37.1; O2SAT 94; BMI 43.8
[2024-04-10] MEDS: ACETAMINOPHEN 1,000MG/100ML VIAL 1000 MG IV (05:36)
[2024-04-10 06:14] VITALS: PULSE 85; PULSE 87; O2SAT 90
[2024-04-10] MEDS: IPRATROPIUM/ALBUTEROL 3 ML NEB IH ×2 (06:14→11:25)
--- NOTE | 2024-04-10 06:48 | PC.NURSE ---
04/10/24 Pt. is alert and orientated x 4. Pt states she is feeling a lot better overnight. She has been on room air. and tolerating well. She had slept off and on through the night. Did c/o bad headache. Tylenol PO did not help but Tylenol IV dose x 1 helped. Vss. Personal items and call potter in reach. Possible discharge home today.
[2024-04-10 06:52] LABS: Basophils % 0.3 % (0.1-2.0); Eosinophils # 0.1 K/mm3 (0.0-0.4); Eosinophils % 0.5 % (0.1-12.0); Hematocrit 32.1 % (37.0-47.0); Hemoglobin 10.6 g/dL (12.2-16.2); Lymphocytes # 1.4 K/mm3 (0.7-4.5); Lymphocytes % 11.3 % (10-50); Mean Corpuscular HGB Conc 33.2 g/dL (31.8-35.4); Mean Corpuscular Hemoglobin 29.9 pg (27.0-31.2); Mean Corpuscular Volume 90.1 fl (81-99); Mean Platelet Volume 7.4 fl (7.4-10.4); Monocytes # 0.8 K/mm3 (0.1-1.0); Monocytes % 6.7 % (1.7-9.3); Neutrophils # 9.8 K/mm3 (1.8-7.8); Neutrophils % 81.3 % (37.0-80.0); Platelet Count 414 K/mm3 (142-424); Red Blood Count 3.56 M/mm3 (4.20-5.40); Red Cell Distribution Width 15.6 % (11.5-17.5); White Blood Count 12.1 K/mm3 (4.8-10.8)
[2024-04-10 07:06] LABS: Albumin Level 3.1 g/dl (3.5-5.0); Chloride 108 mmol/L (98-107); Sodium 139 mmol/L (136-145)
[2024-04-10 07:07] LABS: Potassium 3.4 mmoL/L (3.5-5.1)
[2024-04-10 07:09] LABS: Alanine Aminotransferase 18 U/L (12-78); Anion Gap 9.4 mEq/L (5-15); Aspartate Amino Transferase 32 U/L (14-36); Blood Urea Nitrogen 10 mg/dl (7-17); Carbon Dioxide 25 mmol/L (22.0-30.0); Creatinine Clearance Estimated 95 mL/min (50-200); Estimated Glomerular Filt Rate 102 ml/min (>60); GFR (African American) 124 ML/MIN (>60)
[2024-04-10 07:10] LABS: Albumin/Globulin Ratio 0.9 (1.1-1.8); Alkaline Phosphatase 156 U/L (38-126); Bilirubin,Total 0.8 mg/dl (0.2-1.3); Calcium 8.1 mg/dl (8.4-10.2); Globulin 3.3 g/dL (1.3-3.2); Glucose 150 mg/dl (74-100); Total Protein,Serum 6.4 g/dl (6.3-8.2)
[2024-04-10 08:00] VITALS: BP 141/78; PULSE 50; RESP 18; TEMP 36.7; O2SAT 100
[2024-04-10 08:58] LABS: Vancomycin,Trough 25.2 ug/mL (5.0-10.0)
[2024-04-10] MEDS: MAGIC MOUTHWASH 300ML BOTTLE 15 ML PO (09:06)
[2024-04-10] MEDS: CITALOPRAM 40MG TABLET 40 MG PO (09:06)
[2024-04-10] MEDS: buPROPion HCl SR 150MG TAB 150 MG PO (09:06)
[2024-04-10] MEDS: ENOXAPARIN 40MG/0.4ML SYRINGE 40 MG SUBCUT (09:07)
[2024-04-10] MEDS: guaiFENesin 600 MG TAB.ER.12H 1200 MG PO (09:07)
--- NOTE | 2024-04-10 09:38 | P.CONPHA_ITS ---
Pharmacy Consult Date: 04/10/24 Time: 09:38 Referring provider: DR. ABREU Reason for Consult:: VANCOMYCIN TROUGH LEVEL Allergies Allergy/AdvReac Type Severity Reaction Status Date / Time penicillin G Allergy Severe Anaphylaxis Verified 07/31/22 15:43 nitrofurantoin (From Allergy Unknown Unknown Verified 07/31/22 15:43 Macrobid) allergy reaction aspirin Allergy Unknown Verified 04/08/24 14:02 allergy reaction ciprofloxacin (From Cipro) Allergy Unknown Verified 04/08/24 14:02 allergy reaction codeine Allergy Unknown Verified 04/08/24 14:02 allergy reaction ibuprofen Allergy Unknown Verified 04/08/24 14:02 allergy reaction meloxicam (From Mobic) Allergy Unknown Verified 04/08/24 14:02 allergy reaction lactose AdvReac Other Verified 04/09/24 10:02 Home Medications ?Medication ?Instructions ?Recorded ?Confirmed ?Type bupropion HCl 300 mg 24 hr tablet, 300 mg PO DAILY 03/12/24 04/08/24 History extended release escitalopram oxalate 20 mg tablet 20 mg PO DAILY 03/12/24 04/08/24 History hydroxyzine pamoate 25 mg capsule 25 mg PO BIDP PRN Anxiety 03/12/24 04/09/24 History trazodone 100 mg tablet 300 mg PO HS 03/12/24 04/09/24 History albuterol sulfate 90 mcg/actuation 1 puff inhalation Q4HP PRN 04/09/24 04/09/24 History aerosol inhaler Shortness Of Breath atorvastatin 40 mg tablet 40 mg PO DAILY 04/09/24 04/09/24 History New Prescriptions to Start Prescriptions: Height: 1.7 m Weight: 126.688 kg Laboratory Results:: Laboratory Results - last 24 hr 04/09/24 20:13: Urine Color Dark yellow, Urine Appearance Cloudy, Urine pH 6.0, Ur Specific [place] 1.025, Urine Protein Negative, Urine Glucose (UA) Negative, Urine Ketones Negative, Urine Blood 2+ A, Urine Nitrate Negative, Urine Bilirubin Negative, Urine Urobilinogen 1.0, Ur Leukocyte Esterase Negative, Urine RBC 10-20, Urine WBC Occasional, Ur Squamous Epith Cells Occasional, Amorphous Sediment 1+, Urine Bacteria Trace 04/10/24 06:05: WBC 12.1 H, RBC 3.56 L, Hgb 10.6 L, Hct 32.1 L, MCV 90.1, MCH 29.9, MCHC 33.2, RDW 15.6, Plt Count 414, MPV 7.4, Neut % (Auto) 81.3 H, Lymph % (Auto) 11.3, [place] % (Auto) 6.7, Eos % (Auto) 0.5, Baso % (Auto) 0.3, Neut # (Auto) 9.8 H, Lymph # (Auto) 1.4, [place] # (Auto) 0.8, Eos # (Auto) 0.1, Baso # (Auto) 0.0, Sodium 139, Potassium 3.4 L, Chloride 108 H, Carbon Dioxide 25, Anion Gap 9.4, BUN 10, Creatinine 0.60, Estimated Creat Clear 95, Estimated GFR 102, Est GFR ( Amer) 124, Glucose 150 H, Calcium 8.1 L, Total Bilirubin 0.8, AST 32 D, ALT 18, Alkaline Phosphatase 156 H, Total Protein 6.4, Albumin 3.1 L, Globulin 3.3 H, Albumin/Globulin Ratio 0.9 L, Vancomycin Trough 25.2 H Assessment and Plan Assessment and plan all Dx Assessment and Plan for all problems:: PATIENT HAD VANCOMYCIN TROUGH LEVEL DRAWN AT 0605 THIS MORNING (TIMED FOR 0800) AND RESULT WAS 25.2. ALSO, PREVIOUS VANCOMYCIN DOSE WAS ADMINISTERED AT 0300 (SCHEDULED FOR 0100). BASED ON THESE EVENTS, WILL KEEP VANCOMYCIN AT SAME DOSE AND FREQUENCY. WILL OBTAIN TROUGH LEVEL TOMORROW (04/11) TIMED FOR 1000. -ENRIQUE SALAZAR PHARMD
--- NOTE | 2024-04-10 10:39 | EXP.DC.SUM ---
General Admission date:: 04/08/24 Discharge date: 04/10/24 HPI HPI HPI: Carol Alejo is a 58-year-old female with a medical history significant for anxiety/depression, and recent COVID-19 infection about 4 weeks ago presents with progressive profound weakness and persistent cough. She states she was diagnosed with COVID-19 about 4 weeks ago, and has had persistent cough since then. She has undergone 2 rounds of antibiotics including doxycycline, and Medrol pack 4 weeks ago. Neither have alleviated symptoms. She endorses shortness of breath with exertion, nonproductive cough, fever/chills, profound weakness, decreased oral intake, in addition to profuse watery diarrhea over the past week. Workup in the ED significant for WBC 11.7, sodium 146. CTA chest suggestive of bilateral pneumonia, right greater than left. Patient is saturating well on room air. Case discussed with ED provider and decision was made to admit patient for profound weakness, cough in the setting of community-acquired pneumonia and failed outpatient treatment. Hospital Course Hospital Course Hospital Course: Carol Alejo is a 58-year-old female with a medical history significant for anxiety/depression, and recent COVID-19 infection about 4 weeks ago presents with progressive profound weakness and persistent cough. She states she was diagnosed with COVID-19 about 4 weeks ago, and has had persistent cough since then. She has undergone 2 rounds of antibiotics including doxycycline and azithromycin courses. Continue to have persistent symptoms. CTA shows bilateral pneumonia. Weaned to room air 48hrs prior to discharge. ight. Feeling little bit better per her report today. Continues to require inpatient management. Evaluate for discharge home in the morning. Problems addressed as follows: #Community-acquired pneumonia #Recent COVID-19 infection #Sepsis ? Met sepsis criteria with temperature 100.3, WBC 11.7, pulse up to 94. Ordered 2 L sepsis bolus, no signs of volume overload. With the recent COVID-19 infection, and the fact that patient has waxed and waned in symptoms over the past month highly suggest bacterial superimposition. Covered with broad-spectrum antibiotics including vancomycin, azithromycin, cephalosporins. Overall did well. Given her clinical improvement and improvement in white count and weaning of oxygen, decision made to transition to oral antibiotics with oxacillin to complete 7-day course total. Prescribed 1 dose of Diflucan as patient has a tendency to get yeast infections after completing antibiotics. Overall feels well. Stable on room air. Blood cultures negative, sputum cultures with gram-negative rods. Recommend follow-up with PCP in the next 1 to 2 weeks for reevaluation. Would benefit from repeat chest imaging to monitor for clearance of pneumonia. #Physical deconditioning ? Patient has profound weakness on exam initially. Likely secondary to her pneumonia and prolonged course. Therapy was consulted, recommended home health initially. Improved strength during admission, independently stable. TSH evaluated, normal at 0.6. Urine suspicious for UTI but covered empirically as above. #Diarrhea: Diarrhea resolving. No panel obtained at this time. Suspect secondary to antibiotic effect. #Hypercarbia ? VBG pCO2 52.1, though relatively compensated with pH 7.32. On admission. No history of chronic lung disease, non-smoker. May be secondary to undiagnosed sleep apnea versus obesity hypoventilation syndrome in the setting of morbid obesity. Would benefit from outpatient sleep study or overnight pulse ox to evaluate for possible CPAP. DuoNebs while admitted. Resume home regimen for mood including Lexapro and Wellbutrin. Total time spent on discharge 35 minutes in counseling, documentation, chart review, and direct care with patient. Exam Data for Last 24 hours Vital signs and Labs for Last 24 Hours: Temp Pulse Resp BP Pulse Ox O2 Del Method O2 Flow Rate 98.1 F 50 L 18 141/78 H 100 Room Air 2 04/10/24 08:00 04/10/24 08:00 04/10/24 08:00 04/10/24 08:00 04/10/24 08:00 04/10/24 09:00 04/09/24 19:19 Laboratory Results - last 24 hr 04/09/24 20:13: Urine Color Dark yellow, Urine Appearance Cloudy, Urine pH 6.0, Ur Specific [place] 1.025, Urine Protein Negative, Urine Glucose (UA) Negative, Urine Ketones Negative, Urine Blood 2+ A, Urine Nitrate Negative, Urine Bilirubin Negative, Urine Urobilinogen 1.0, Ur Leukocyte Esterase Negative, Urine RBC 10-20, Urine WBC Occasional, Ur Squamous Epith Cells Occasional, Amorphous Sediment 1+, Urine Bacteria Trace 04/10/24 06:05: WBC 12.1 H, RBC 3.56 L, Hgb 10.6 L, Hct 32.1 L, MCV 90.1, MCH 29.9, MCHC 33.2, RDW 15.6, Plt Count 414, MPV 7.4, Neut % (Auto) 81.3 H, Lymph % (Auto) 11.3, Parker % (Auto) 6.7, Eos % (Auto) 0.5, Baso % (Auto) 0.3, Neut # (Auto) 9.8 H, Lymph # (Auto) 1.4, Parker # (Auto) 0.8, Eos # (Auto) 0.1, Baso # (Auto) 0.0, Sodium 139, Potassium 3.4 L, Chloride 108 H, Carbon Dioxide 25, Anion Gap 9.4, BUN 10, Creatinine 0.60, Estimated Creat Clear 95, Estimated GFR 102, Est GFR ( Amer) 124, Glucose 150 H, Calcium 8.1 L, Total Bilirubin 0.8, AST 32 D, ALT 18, Alkaline Phosphatase 156 H, Total Protein 6.4, Albumin 3.1 L, Globulin 3.3 H, Albumin/Globulin Ratio 0.9 L, Vancomycin Trough 25.2 H I & O for Last 24 hours: Intake & Output 04/07/24 04/08/24 04/09/24 04/10/24 23:59 23:59 23:59 23:59 Intake Total 120 / 120 2680 / 2680 840 / 840 Output Total 0 / 0 800 / 800 Balance 120 / 120 2680 / 2680 40 / 40 Weight 125.872 kg 128.412 kg 126.688 kg Microbiology Reports for the Last 24 Hours: Microbiology 04/08/24 19:00 Sputum - Expectorated Sputum Gram Stain - Final 04/08/24 19:00 Sputum - Expectorated Sputum Sputum Culture - Preliminary 04/08/24 15:58 Blood Blood Culture - Preliminary NO GROWTH AFTER 24 HOURS 04/08/24 15:50 Blood Blood Culture - Preliminary NO GROWTH AFTER 24 HOURS Constitutional Constitutional: no acute distress, morbidly obese and cooperative *Routine HEENT Exam Head: Present normocephalic Eye: Present EOMI and PERRL ENT: Present mucous membranes moist *Routine Neck Exam Neck: Present supple; Absent lymphadenopathy *Routine Respiratory Exam Respiratory: Present CTA bilaterally; Absent accessory muscle use, rhonchi, wheezes or crackles Comments: signicificant improvement *Routine Cardiovascular Exam Cardiovascular: Present RRR *Routine Abdominal Exam Abdominal: Present soft and normoactive bowel sounds; Absent tenderness *Routine Rectal Exam Patient deferred: visual exam *Routine Exam Patient deferred: external exam *Routine Extremities Exam Extremities: Absent cyanosis, clubbing or edema *Routine Skin Exam Skin: Present warm; Absent rash *Routine Neurological Exam Neurological: Present alert, oriented X3 and moving all extremities; Absent altered mental status Results Data Completed and Pending Labs on day of discharge: Labs from last 24 hours 04/10/24 04/09/24 06:05 20:13 WBC 12.1 H RBC 3.56 L Hgb 10.6 L Hct 32.1 L MCV 90.1 MCH 29.9 MCHC 33.2 RDW 15.6 Plt Count 414 MPV 7.4 Neut % (Auto) 81.3 H Lymph % (Auto) 11.3 Parker % (Auto) 6.7 Eos % (Auto) 0.5 Baso % (Auto) 0.3 Neut # (Auto) 9.8 H Lymph # (Auto) 1.4 Parker # (Auto) 0.8 Eos # (Auto) 0.1 Baso # (Auto) 0.0 Sodium 139 Potassium 3.4 L Chloride 108 H Carbon Dioxide 25 Anion Gap 9.4 BUN 10 Creatinine 0.60 Estimated Creat Clear 95 Estimated GFR 102 Est GFR ( Amer) 124 Glucose 150 H Calcium 8.1 L Total Bilirubin 0.8 AST 32 D ALT 18 Alkaline Phosphatase 156 H Total Protein 6.4 Albumin 3.1 L Globulin 3.3 H Albumin/Globulin Ratio 0.9 L Urine Color Dark yellow Urine Appearance Cloudy Urine pH 6.0 Ur Specific [place] 1.025 Urine Protein Negative Urine Glucose (UA) Negative Urine Ketones Negative Urine Blood 2+ A Urine Nitrate Negative Urine Bilirubin Negative Urine Urobilinogen 1.0 Ur Leukocyte Esterase Negative Urine RBC 10-20 Urine WBC Occasional Ur Squamous Epith Cells Occasional Amorphous Sediment 1+ Urine Bacteria Trace Vancomycin Trough 25.2 H Preliminary micro results at discharge 04/08/24 19:00 Sputum Culture - Preliminary Sputum - Expectorated Sputum 04/08/24 15:58 Blood Culture - Preliminary Blood NO GROWTH AFTER 24 HOURS 04/08/24 15:50 Blood Culture - Preliminary Blood NO GROWTH AFTER 24 HOURS DS: Diagnosis Discharge Diagnosis (1) Community acquired pneumonia: Status: Acute Code(s): J18.9 - Pneumonia, unspecified organism (2) COVID-19: Status: Acute Code(s): U07.1 - COVID-19 (3) Sepsis: Status: Acute Code(s): A41.9 - Sepsis, unspecified organism (4) 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: Status: Acute Code(s): E66.813 - Obesity, class 3; E88.82 - Obesity due to disruption of MC4R pathway; Z15.2 - Genetic susceptibility to obesity; Z68.41 - Body mass index [BMI] 40.0-44.9, adult Meds Home Medications and Allergies Home Medications ?Medication ?Instructions ?Recorded ?Confirmed ?Type bupropion HCl 300 mg 24 hr tablet, 300 mg PO DAILY 03/12/24 04/08/24 History extended release escitalopram oxalate 20 mg tablet 20 mg PO DAILY 03/12/24 04/08/24 History hydroxyzine pamoate 25 mg capsule 25 mg PO BIDP PRN Anxiety 03/12/24 04/09/24 History trazodone 100 mg tablet 300 mg PO HS 03/12/24 04/09/24 History albuterol sulfate 90 mcg/actuation 1 puff inhalation Q4HP PRN 04/09/24 04/09/24 History aerosol inhaler Shortness Of Breath atorvastatin 40 mg tablet 40 mg PO DAILY 04/09/24 04/09/24 History fluconazole 200 mg tablet 200 mg PO ONCE #1 tab 04/10/24 Rx (Diflucan) levofloxacin 750 mg tablet 750 mg PO DAILY 4 days #4 tabs 04/10/24 Rx New Prescriptions to Start Prescriptions: fluconazole [Diflucan] Jt Andres levofloxacin Jt Andres Allergies Allergy/AdvReac Type Severity Reaction Status Date / Time penicillin G Allergy Severe Anaphylaxis Verified 07/31/22 15:43 nitrofurantoin (From Allergy Unknown Unknown Verified 07/31/22 15:43 Macrobid) allergy reaction aspirin Allergy Unknown Verified 04/08/24 14:02 allergy reaction ciprofloxacin (From Cipro) Allergy Unknown Verified 04/08/24 14:02 allergy reaction codeine Allergy Unknown Verified 04/08/24 14:02 allergy reaction ibuprofen Allergy Unknown Verified 04/08/24 14:02 allergy reaction meloxicam (From Mobic) Allergy Unknown Verified 04/08/24 14:02 allergy reaction lactose AdvReac Other Verified 04/09/24 10:02 Discharge Plan Disposition Patient Disposition: Home, Self-Care Condition: Fair Follow up Plan Follow up with: Audi Almonte MD [Primary Care Provider] - Enter time for follow up (please call the office for appointment) Prescriptions/Medication Reconciliation: New fluconazole [Diflucan] 200 mg tablet 200 mg PO ONCE Qty: 1 0RF Rx Instructions: take after completing abx levofloxacin 750 mg tablet 750 mg PO DAILY 4 Days Qty: 4 0RF Continued trazodone 100 mg tablet 300 mg PO HS hydroxyzine pamoate 25 mg capsule 25 mg PO BIDP PRN (Reason: Anxiety) escitalopram oxalate 20 mg tablet 20 mg PO DAILY bupropion HCl 300 mg tablet extended release 24 hr 300 mg PO DAILY atorvastatin 40 mg tablet 40 mg PO DAILY albuterol sulfate 90 mcg/actuation HFA aerosol inhaler 1 puff INHALATION Q4HP PRN (Reason: Shortness Of Breath) Problem Reconciliation Problems Reviewed?: Yes Patient Discharge Instructions ACTIVITY: Continue current activity DIET: continue same diet Patient Instructions: DI for Pneumonia -- Adult, DI for COVID-19 (Suspected or Confirmed ) Print Language: [place] Providers Primary Care Provider: Audi Almonte Admit Provider: Roman King Attending Provider: Roman King
[2024-04-10] MEDS: CEFTRIAXONE SODIUM 1 GM in 0.9 % SODIUM CHLORIDE 50 ML IV (10:49)
[2024-04-10 11:09] LABS: HCV Ab Non Reactive (Non Reactive)
[2024-04-10] MEDS: AZITHROMYCIN 500 MG in 0.9 % SODIUM CHLORIDE 250 ML 250 MG IV (11:30)
[2024-04-10] MEDS: ONDANSETRON 4MG/2ML VIAL 4 MG IV (11:40)
--- NOTE | 2024-04-11 11:13 | SW/DCPLANNER ---
Spoke with patient on the phone. Patient stated that she is good since the dishcarge. Patient stated that she didnt know if she had to call or if someone was going to call with an appointment for pulmonology i asked the patient if she would like to call and make her an appointment. The appoinment was made for 06/09/24 at 3:40. Patient stated that she has no concerns or questions at this time. Gisselle Pettit
== END 2024-04-10 12:55 | disposition home or self-care (01) ==
LOC: UTC 11:23 → COUGHCL 13:46 → ER 13:46 → 2ND 16:13
PROVIDERS: Physician Assistant; Admitting Provider Student in an Organized Health Care Education/Training Program; Emergency Provider Student in an Organized Health Care Education/Training Program; PCP Emergency Medicine; Visit Provider Student in an Organized Health Care Education/Training Program
DX: J18.9 Pneumonia, unspecified organism (principal); E66.813 Obesity, class 3; E88.82 Obesity due to disruption of MC4R pathway; Z15.2 Genetic susceptibility to obesity; Z68.41 Body mass index [BMI] 40.0-44.9, adult; F17.210 Nicotine dependence, cigarettes, uncomplicated; Z86.16 Personal history of COVID-19; R06.89 Other abnormalities of breathing; Z79.899 Other long term (current) drug therapy
CPT/HCPCS: 36415; 71046; 71275; 80053; 80202; 81001; 82550; 82803; 83605; 83735; 84439; 84443; 84484; 85025; 85610; 86803; 87040; 87070; 87077; 87186; 87205; 87389; 87633; 93005; 94640; 97161; 99285; G0378; J0131; J0456; J0696; J1650; J1885; J2405; J3370; J7030; J7050; J7620; Q9967